=== PATIENT | male | born 1955 | race Caucasian/White ===

== ENCOUNTER 2022-05-18 19:23 | Inpatient (IN) ==
[2022-05-18] MEDS ORDERED: MIDAZOLAM HCL 1 MG/ML 2ML VIAL IV STA (20:44)
[2022-05-18] MEDS ORDERED: SODIUM CHLORIDE 0.9% 1000ML 500 ML IV ONE (20:44)
[2022-05-18] MEDS ORDERED: MECLIZINE HCL 25 MG TAB PO STA (20:44)
--- NOTE | 2022-05-18 21:07 | Emergency Department Note ---
Impression & Plan Dizziness, Nausea & vomiting, Hx of multiple sclerosis ED Provider Note INFORMANT: Patient and family ED PROVIDER(S): Elio Ventura MD CHIEF COMPLAINT: Dizziness PLAN: Disposition: Admitted Condition: Good Outpatient prescription management: none Referral: None MEDICAL DECISION MAKING: Patient presented to emergency department because of dizziness. He was very nauseated. He has history of stroke, MS and vertigo. He has had to be hospitalized in the past for vertigo. He was hydrated. He was treated with IV Versed as well as IV Zofran. He was given oral meclizine. His ECG reveals sinus bradycardia with lateral T wave inversions. I did attempt to obtain old ECGs however they were not available in our system or [facility]. The patient underwent head CT imaging and that was unremarkable. He did have a mild leukocytosis on CBC which I suspect was from his vomiting. The patient had an unremarkable chemistry panel. Patient was still very nauseated after coming back from CT scan and was given a dose of IV Zofran. On reassessment he was feeling better. While waiting for the official radiology read of his head CT the patient became nauseated again. His dizziness was still controlled with the Versed relatively well and meclizine. He was given a dose of IV Benadryl and Reglan. In light of his persistent nausea and history of difficult vertigo and other medical conditions further management in the hospital was felt to be appropriate. Patient and family were in agreement. Consultation was made with Dr. Gonzalez of the [facility] hospitalist service. Case was discussed and diagnostics were reviewed. He did evaluate the patient. He was admitted for further management. Triage Nursing notes reviewed and agree them. Vital Signs: reviewed and remarkable for hypertension Prior /Outside records reviewed: none Differential diagnosis: Benign positional vertigo, dehydration, hypovolemia, anemia, tumor, infection, hypoglycemia, electrolyte abnormalities, cardiac sources, intracerebral event, toxicologic, neurologic, as well as other pathologies. Diagnostics, as interpreted by me: ECG: Twelve-lead ECG reveals a sinus bradycardia first-degree AV block at 53 bpm. Lateral T wave inversions present. No ST elevation. No prior for comparison Cardiac Monitoring: Cardiac monitoring ordered by me: The patient was placed on continuous cardiac monitoring and observed. It revealed a normal sinus rhythm at 60 beats per minute without ectopy or evidence of dysrhythmia. Medical decision rules: none Imaging studies: Chest x-ray. Findings: A chest x-ray was performed and revealed no pneumothorax, effusion, infiltrate, pulmonary edema, free air under the diaphragm, or wide mediastinum. Impression: No acute disease. Head CT: A noncontrast CT scan of the head was performed and was negative for tumor, fracture, intracranial hemorrhage, or other acute pathology. I refer you to the EMR for further details. HPI: The patient is a 66year old male who presents to the Emergency Room with complaints of dizziness. This started around 6 PM tonight and is persisting. Patient has a history of vertigo and feels similar to prior episodes.. The patient also notes the following associated symptoms, nausea and vomiting. The patient has has found no relieving factors. Current pain is rated as mild. Patient also did note a headache. He did fall to the floor. Patient notes a history of a stroke 16 years ago which affected his left leg. Patient has a history of MS. Pt denies LOC, fevers, chills, diaphoresis, visual changes, neck pain, chest pain, breathing difficulties, abdominal pain, back pain, melena, hematochezia, urinary symptoms, numbness, weakness, lymphadenopathy, rash, or other complaints. PAST MEDICAL HISTORY: See Below, CVA, vertigo, MS PAST SURGICAL HISTORY: See Below, SOCIAL HISTORY: See Below, quit smoking HOME MEDICATIONS: See Below ALLERGIES: See Below VITALS: See Below PHYSICAL EXAMINATION: GENERAL: Awake, alert, uncomfortable-appearing, in no distress HENT: Normocephalic, atraumatic. Oropharynx unremarkable. EYES: Normal conjunctiva. Sclera non-icteric. PERRLA. EOMI. No vertical or rotatory nystagmus. NECK: Inspection normal. Non-tender. Supple. No nuchal rigidity. FROM. No masses. RESPIRATORY: Clear to auscultation. No wheezes. No rales. Normal respiratory effort. CARDIAC: Normal rate. Normal rhythm. No murmurs. No rubs. Extremities warm and well perfused. Pulses equal. No JVD. GI: Soft, non-distended. No tenderness to palpation. No rebound or guarding. No masses. RECTAL: Deferred. MUSCULOSKELETAL: Atraumatic. Chest examination reveals no tenderness. The back is symmetrical on inspection without obvious abnormality. There is no CVA tenderness to palpation. No joint edema. LOWER EXTREMITIES: Calves are equal size bilaterally and non-tender. No edema. No discoloration. NEURO: Normal sensorium. Generalized weakness noted. More weak in the left lower extremity which patient states is chronic. Patient notes chronic tingling in the hands and feet from his MS but otherwise no other sensory or motor deficits noted. SKIN: No rash or jaundice noted. Past Med/Surg History Medical History Diabetes High blood pressure Surgical History H/O knee surgery Social History Smoking Status: Former smoker Tobacco Type: Cigarettes Feels Safe at Home: Yes Allergies Allergies Allergy/AdvReac Type Severity Reaction Status Date / Time No Known Allergies Allergy Unverified 05/19/22 01:37 Home Meds Home Medications Medication Instructions Recorded Confirmed buspirone 15 mg tablet 15 mg PO BID 05/19/22 05/19/22 cyclobenzaprine 10 mg tablet 20 mg PO HS 05/19/22 05/19/22 duloxetine 60 mg capsule,delayed 60 mg PO BID 05/19/22 05/19/22 release hydroxyzine HCl 50 mg tablet 50 mg PO BID 05/19/22 05/19/22 ipratropium bromide 42 mcg (0.06 1 spray intranasal DIRECTED 05/19/22 05/19/22 %) nasal spray lisinopril 20 mg tablet 20 mg PO DAILY 05/19/22 05/19/22 metformin 500 mg tablet 500 mg PO BID 05/19/22 05/19/22 omeprazole 40 mg capsule,delayed 40 mg PO DAILY 05/19/22 05/19/22 release phenytoin sodium extended 100 mg 300 mg PO AMHS 05/19/22 05/19/22 capsule rosuvastatin 20 mg tablet 20 mg PO DAILY 05/19/22 05/19/22 Results & Data (ED) Vital Signs Vital Signs - 24 hr 05/18/22 19:40 05/18/22 21:48 05/18/22 21:51 Temperature 36.5 C Temperature Source Oral Pulse Rate 63 59 L Pulse Rate [Apical] 58 L Respiratory Rate 18 16 16 Respiratory Effort / Characteristics Spontaneous Respiratory Depth Blood Pressure 149/101 H Blood Pressure [Right Arm] 187/102 H Blood Pressure Mean 117 Blood Pressure Mean [Right Arm] 130 Pulse Oximetry 97 94 97 Oxygen Delivery Method Room Air Room Air Room Air Sepsis Recent Fever Within 48 Hours No Sepsis New/Unexplained Change in Mental Status N/A Sepsis Action Taken by Nursing No Action Required 05/18/22 23:00 05/19/22 01:00 Temperature Temperature Source Pulse Rate Pulse Rate [Apical] 64 60 Respiratory Rate 18 17 Respiratory Effort / Characteristics Non-Labored Spontaneous Non-Labored Spontaneous Respiratory Depth Normal Normal Blood Pressure Blood Pressure [Right Arm] 153/74 H 157/77 H Blood Pressure Mean Blood Pressure Mean [Right Arm] 100 103 Pulse Oximetry 98 95 Oxygen Delivery Method Room Air Room Air Sepsis Recent Fever Within 48 Hours Sepsis New/Unexplained Change in Mental Status Sepsis Action Taken by Nursing Laboratory Data Result diagrams: 05/18/22 21:00 05/18/22 21:00 Lab Results 05/18/22 05/18/22 05/18/22 Range/Units 20:58 21:00 21:00 WBC 13.96 H (4.8-10.8) K/ul RBC 5.14 (4.63-6.08) M/uL Hgb 15.4 (14.0-18.0) g/dl Hct 44.3 (40.1-51.0) % MCV 86.2 (80.0-100.0) fL MCH 30.0 (25.0-34.0) pg MCHC 34.8 (32.0-36.0) g/dL RDW Std Deviation 39.4 (36.4-46.3) fL RDW Coeff of Abraham 12.5 (11.5-14.5) % Plt Count 222 (130-400) K/uL MPV 9.4 (9.4-12.4) fL Immature Gran % (Auto) 0.4 % Neut % (Auto) 76.8 % Lymph % (Auto) 13.1 % Meriwether % (Auto) 8.2 % Eos % (Auto) 1.1 % Baso % (Auto) 0.4 % Neut # (Auto) 10.71 H (1.4-6.5) K/uL Lymph # (Auto) 1.83 (1.2-3.4) K/uL Meriwether # (Auto) 1.14 H (0.24-0.82) K/uL Eos # (Auto) 0.16 (0-0.50) K/uL Baso # (Auto) 0.06 (0-0.2) K/uL Immature Gran # (Auto) 0.06 H (0.00-0.02) K/uL Sodium 135 L (136-145) mmol/L Potassium 5.0 (3.5-5.1) mmol/L Chloride 101 (98-107) mmol/L Carbon Dioxide 25 (21-32) mmol/L Anion Gap 9 (3-11) BUN 27 H (6-23) mg/dl Creatinine 0.93 (0.6-1.4) mg/dl Est Cr Clr Drug Dosing 112.2 ml/min Est GFR ( Amer) 98.1 ml/min Est GFR (Non-Af Amer) 84.6 ml/min BUN/Creatinine Ratio 29.0 H (10-20) Glucose 162 H (70-99(Fasting)) mg/dl Calcium 9.4 (8.5-10.1) mg/dl Magnesium 1.9 (1.7-2.4) mg/dl Total Bilirubin 0.4 (0.2-1.0) mg/dl AST 19 (13-39) U/L ALT 26 (7-52) U/L Alkaline Phosphatase 71 (34-104) U/L Troponin I High Sens 4.1 (0-20) pg/ml Total Protein 8.1 (6.0-8.3) gm/dl Albumin 4.4 (3.4-5.0) gm/dl Globulin 3.7 (2.5-4.0) gm/dl Albumin/Globulin Ratio 1.2 (0.9-2) TSH (0.300-4.500) uIu/ml Urine Color Urine Appearance (Clear) Urine pH (4.5-7.5) Ur Specific Murdo (1.000-1.030) Urine Protein (Negative) Urine Glucose (UA) (Negative) Urine Ketones (Negative) Urine Blood (Negative) Urine Nitrite (Negative) Urine Bilirubin (Negative) Urine Urobilinogen (Negative) Ur Leukocyte Esterase (Negative) Urine WBC (Auto) (0-5) /hpf Urine RBC (Auto) (0-4) /hpf U Hyaline Cast (Auto) (0-5) /lpf U Epithel Cells (Auto) (0-5) /lpf Urine Bacteria (Auto) (Negative) SARS-CoV-2, RNA, NAAT NEGATIVE (NEGATIVE) 05/18/22 05/18/22 Range/Units 21:00 22:52 WBC (4.8-10.8) K/ul RBC (4.63-6.08) M/uL Hgb (14.0-18.0) g/dl Hct (40.1-51.0) % MCV (80.0-100.0) fL MCH (25.0-34.0) pg MCHC (32.0-36.0) g/dL RDW Std Deviation (36.4-46.3) fL RDW Coeff of Abraham (11.5-14.5) % Plt Count (130-400) K/uL MPV (9.4-12.4) fL Immature Gran % (Auto) % Neut % (Auto) % Lymph % (Auto) % Meriwether % (Auto) % Eos % (Auto) % Baso % (Auto) % Neut # (Auto) (1.4-6.5) K/uL Lymph # (Auto) (1.2-3.4) K/uL Meriwether # (Auto) (0.24-0.82) K/uL Eos # (Auto) (0-0.50) K/uL Baso # (Auto) (0-0.2) K/uL Immature Gran # (Auto) (0.00-0.02) K/uL Sodium (136-145) mmol/L Potassium (3.5-5.1) mmol/L Chloride (98-107) mmol/L Carbon Dioxide (21-32) mmol/L Anion Gap (3-11) BUN (6-23) mg/dl Creatinine (0.6-1.4) mg/dl Est Cr Clr Drug Dosing ml/min Est GFR ( Amer) ml/min Est GFR (Non-Af Amer) ml/min BUN/Creatinine Ratio (10-20) Glucose (70-99(Fasting)) mg/dl Calcium (8.5-10.1) mg/dl Magnesium (1.7-2.4) mg/dl Total Bilirubin (0.2-1.0) mg/dl AST (13-39) U/L ALT (7-52) U/L Alkaline Phosphatase (34-104) U/L Troponin I High Sens (0-20) pg/ml Total Protein (6.0-8.3) gm/dl Albumin (3.4-5.0) gm/dl Globulin (2.5-4.0) gm/dl Albumin/Globulin Ratio (0.9-2) TSH 1.345 (0.300-4.500) uIu/ml Urine Color Yellow Urine Appearance Clear (Clear) Urine pH 5.0 (4.5-7.5) Ur Specific Murdo 1.021 (1.000-1.030) Urine Protein 2+ H (Negative) Urine Glucose (UA) Negative (Negative) Urine Ketones Trace H (Negative) Urine Blood Negative (Negative) Urine Nitrite Negative (Negative) Urine Bilirubin Negative (Negative) Urine Urobilinogen Negative (Negative) Ur Leukocyte Esterase Negative (Negative) Urine WBC (Auto) 1-5 (0-5) /hpf Urine RBC (Auto) 0-4 (0-4) /hpf U Hyaline Cast (Auto) 0 (0-5) /lpf U Epithel Cells (Auto) 10-20 H (0-5) /lpf Urine Bacteria (Auto) Negative (Negative) SARS-CoV-2, RNA, NAAT (NEGATIVE) Administered Medications Sodium Chloride (Nss 1000ml) 1,000 mls @ 125 mls/hr IV .Q8H KEN Stop: 06/17/22 20:44 Last Admin: 05/18/22 22:37 Dose: 125 mls/hr Documented By: JOSE MANUEL Discontinued Medications Diphenhydramine HCl (Diphenhydramine 50 Mg/Ml Vial) 12.5 mg IV NOW STA Stop: 05/19/22 00:38 Last Admin: 05/19/22 00:45 Dose: 12.5 mg Documented By: ANNETTE Sodium Chloride (Nss 1000ml) 500 mls @ 999 mls/hr IV .Q31M ONE Stop: 05/18/22 21:14 Last Infusion: 05/18/22 22:00 Dose: 0 mls/hr Documented By: JOSE MANUEL Admin: 05/18/22 20:56 Dose: 999 mls/hr Documented By: KANDI Meclizine HCl (Meclizine Hcl 25 Mg Tab) 25 mg PO NOW STA Stop: 05/18/22 20:45 Last Admin: 05/18/22 20:56 Dose: 25 mg Documented By: KANDI Metoclopramide HCl (Metoclopramide Hcl Inj 5 Mg/Ml 2 Ml Vial) 5 mg IV ONE ONE Stop: 05/19/22 00:38 Last Admin: 05/19/22 00:46 Dose: 5 mg Documented By: ANNETTE Midazolam HCl (Midazolam Hcl 1 Mg/Ml 2ml Vial) 1 mg IV NOW STA Stop: 05/18/22 20:45 Last Admin: 05/18/22 20:56 Dose: 1 mg Documented By: KANDI Ondansetron HCl (Ondansetron Inj 2 Mg/Ml 2 Ml Vial) 4 mg IV NOW STA Stop: 05/18/22 22:26 Last Admin: 05/18/22 22:34 Dose: 4 mg Documented By: JOSE MANUEL Ondansetron HCl (Ondansetron Inj 2 Mg/Ml 2 Ml Vial) 4 mg IV NOW STA Stop: 05/19/22 02:23 Last Admin: 05/19/22 02:31 Dose: 4 mg Documented By: ANNETTE Discharge Plan Visit Data Chief Complaint: Vertigo ED Provider: Elio Ventura Discharge Problem: Dizziness, Nausea & vomiting, Hx of multiple sclerosis Forms Stand Alone Forms: My [facility] Prescriptions Prescriptions: No Action cyclobenzaprine 10 mg tablet 20 mg PO HS metformin 500 mg tablet 500 mg PO BID lisinopril 20 mg tablet 20 mg PO DAILY hydroxyzine HCl 50 mg tablet 50 mg PO BID phenytoin sodium extended 100 mg capsule 300 mg PO AMHS omeprazole 40 mg capsule,delayed release(DR/EC) 40 mg PO DAILY ipratropium bromide 42 mcg (0.06 %) spray,non-aerosol 1 spray intranasal DIRECTED buspirone 15 mg tablet 15 mg PO BID rosuvastatin 20 mg tablet 20 mg PO DAILY duloxetine 60 mg capsule,delayed release(DR/EC) 60 mg PO BID Referrals Referrals: West Darden, [Primary Care Provider] -
[2022-05-18 21:33] LABS: Albumin Globulin Ratio 1.2 (0.9-2); Albumin Level 4.4 gm/dl (3.4-5.0); Bilirubin,Total 0.4 mg/dl (0.2-1.0); Calcium 9.4 mg/dl (8.5-10.1); Creatinine Clr Calc Pharmacy 112.2 ml/min; Est GFR (African American) 98.1 ml/min; Est GFR (Non-African American) 84.6 ml/min; Globulin 3.7 gm/dl (2.5-4.0); Magnesium 1.9 mg/dl (1.7-2.4); Total Protein 8.1 gm/dl (6.0-8.3)
[2022-05-18 21:38] LABS: Troponin I High Sensitivity 4.1 pg/ml (0-20)
[2022-05-18 21:41] LABS: Basophils # (auto) 0.06 K/uL (0-0.2); Basophils % (auto) 0.4 %; Eosinophils # (auto) 0.16 K/uL (0-0.50); Eosinophils % (auto) 1.1 %; Hematocrit (blood only) 44.3 % (40.1-51.0); Hemoglobin 15.4 g/dl (14.0-18.0); Immature Granulocytes # (auto) 0.06 K/uL (0.00-0.02); Immature Granulocytes % (auto) 0.4 %; Lymphocytes # (auto) 1.83 K/uL (1.2-3.4); Lymphocytes % (auto) 13.1 %; Mean Corpuscular Hgb Conc 34.8 g/dL (32.0-36.0); Mean Corpuscular Volume 86.2 fL (80.0-100.0); Mean Platelet Volume 9.4 fL (9.4-12.4); Monocytes # (auto) 1.14 K/uL (0.24-0.82); Monocytes % (auto) 8.2 %; Neutrophils # (auto) 10.71 K/uL (1.4-6.5); Neutrophils % (auto) 76.8 %; Platelet Count 222 K/uL (130-400); RDW Coefficient of Variation 12.5 % (11.5-14.5); RDW Standard Deviation 39.4 fL (36.4-46.3); Red Blood Count 5.14 M/uL (4.63-6.08); White Blood Count 13.96 K/ul (4.8-10.8)
[2022-05-18] MEDS ORDERED: ONDANSETRON INJ 2 MG/ML 2 ML VIAL IV STA (22:25)
[2022-05-18] MEDS: SODIUM CHLORIDE 0.9% 1000ML 1,000 ML IV SCH (22:37)
[2022-05-18 23:21] LABS: Appearance Urine Clear (Clear); Bacteria Urine Automated Negative (Negative); Bilirubin Urine Negative (Negative); Blood Urine Negative (Negative); Cast Urine Automated 0 /lpf (0-5); Color Urine Yellow; Glucose Urine UA Negative (Negative); Ketones Urine Trace (Negative); Leukocyte Esterase Urine Negative (Negative); Nitrite Urine Negative (Negative); Protein Urine 2+ (Negative); RBC Urine Automated 0-4 /hpf (0-4); Specific Gravity Urine 1.021 (1.000-1.030); Urobilinogen Urine Negative (Negative)
[2022-05-19] MEDS ORDERED: METOCLOPRAMIDE HCL INJ 5 MG/ML 2 ML VIAL IV ONE (00:37)
[2022-05-19] MEDS ORDERED: diphenhydrAMINE 50 MG/ML VIAL IV STA (00:37)
[2022-05-19] MEDS ORDERED: ONDANSETRON INJ 2 MG/ML 2 ML VIAL IV STA ×2 (02:22→11:10)
[2022-05-19] MEDS ORDERED: GLUCOSE 10 TAB/TUBE PO PRN (03:45)
[2022-05-19] MEDS ORDERED: DEXTROSE 50% 50 ML SYRINGE IV PRN (03:45)
[2022-05-19] MEDS ORDERED: POLYETHYLENE (MIRALAX) 17 GM PACK PO PRN (03:45)
[2022-05-19] MEDS ORDERED: GLUCOSE 40% GEL 15 GM TUBE PO PRN (03:45)
[2022-05-19] MEDS ORDERED: MAGNESIUM HYDROXIDE SUSP 30 ML UDC PO PRN (03:45)
[2022-05-19] MEDS ORDERED: GLUCAGON FOR INJ 1 MG VIAL SQ PRN (03:45)
[2022-05-19] MEDS ORDERED: CARBOHYDRATES FOR HYPOGLYCEMIA PO PRN (03:45)
[2022-05-19] MEDS ORDERED: ALUMINUM/MAGNESIUM SUSP 30 ML UDC PO PRN (03:45)
--- NOTE | 2022-05-19 03:58 | History & Physical Report ---
Date of Service May 19, 2022 Assessment & Plan (1) Nausea & vomiting: (2) Vertigo: Plan Vertigo Patient presents with vertigo started the evening prior to arrival, associated with N,V,sweting. Patient has history of vertigo and hospitalization in the past, patient has notable PMH of MS and a stroke and vertigo. Patient received diphenhydramine, meclizine, metoclopramide, Versed, IV fluid, and Zofran in the ED At my bedside exam, patient was already feeling better. Admitting CT head with no acute finding, follow final read. Will continue with meclizine, diphenhydramine, Zofran, IV fluid hydration Leukocytosis: Likely secondary to dehydration from vomiting/profuse sweating. Patient afebrile. Follow labs in AM. UA not suggestive of UTI. CXR appears with no acute finding, follow final reads. Other chronic medical conditions: resume home meds as appropriate. Sliding scale insulin. Enoxaparin sc DNR/DNI History of Present Illness Chief Complaint: Vertigo Primary Care Provider: West Darden DO 66-year-old man with PMH of T2DM, HLD, diabetic peripheral angiopathy, COPD, HTN, obesity class III, GERD, BPH, multiple sclerosis CAMI, recurrent major depressive disorder, history of CVA presented to the ED 1/2 with complaint of vertigo associated with nausea and sweating. Patient reports sudden onset vertigo last evening (on the day of arrival to ED) around 5:30 PM while trying to undo his shoes, felt nauseous and profuse sweating, vomiting and weak. Patient reports he has been hospitalized with vertigo 2 times in the past, June and November 2019. Patient reports "everything spinning" including the room and himself when he has vertigo. He has notable past medical history of stroke, MS and vertigo. Patient was treated with IV Versed, IV Zofran and p.o. meclizine, patient with some relief of vertigo and then a plan was to discharge him from ED but again his vertigo started to come back and hence decision was made to admit the patient under observation and treat his vertigo. Patient denies any fever/headache/cough. Patient reports good appetite. Glenn cleary denies any acute changes in his bowel or bladder habit. Patient denies any chest pain/palpitations/belly pain. Patient denies any numbness. Patient quit smoking 2006, drinks 1-2 beers a day generally but his last drink this time is last Wednesday. Denies any recreational drug use. DNR/DNI as per my discussion with the patient. 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 Medications reviewed with the patient. Plan of care discussed with the patient. Allergies Allergy/AdvReac Type Severity Reaction Status Date / Time No Known Allergies Allergy Unverified 05/19/22 01:37 Home Medications Medication Instructions Recorded Confirmed Type buspirone 15 mg tablet 15 mg PO BID 05/19/22 05/19/22 History cyclobenzaprine 10 mg tablet 20 mg PO HS 05/19/22 05/19/22 History duloxetine 60 mg capsule,delayed 60 mg PO BID 05/19/22 05/19/22 History release hydroxyzine HCl 50 mg tablet 50 mg PO BID 05/19/22 05/19/22 History ipratropium bromide 42 mcg (0.06 1 spray intranasal DIRECTED 05/19/22 05/19/22 History %) nasal spray lisinopril 20 mg tablet 20 mg PO DAILY 05/19/22 05/19/22 History metformin 500 mg tablet 500 mg PO BID 05/19/22 05/19/22 History omeprazole 40 mg capsule,delayed 40 mg PO DAILY 05/19/22 05/19/22 History release phenytoin sodium extended 100 mg 300 mg PO AMHS 05/19/22 05/19/22 History capsule rosuvastatin 20 mg tablet 20 mg PO DAILY 05/19/22 05/19/22 History Past Med/Surg History Medical History Diabetes High blood pressure Surgical History H/O knee surgery Social History Smoking Status: Former smoker Tobacco Type: Cigarettes Feels Safe at Home: Yes Review of Systems Review of Systems: Negative otherwise mentioned in HPI. Physical Exam Physical Exam: GENERAL: Alert and oriented x3. NAD, on RA. Mild distress, lying semiupright w/ eyes closed. Obese Class III. HEENT: No pallor, no icterus. Pupils equal, round and reactive to light. Oral mucosa moist. NECK: No JVD, no neck masses. HEART: S1 and S2 heard. Regular rate and rhythm. No murmur, no gallop. RESPIRATORY SYSTEM: Normal AP diameter. No accessory muscle use. No wheezing, no crackles. ABDOMEN: Soft, bowel sounds present, nontender, no distention. CENTRAL NERVOUS SYSTEM: No facial droop. Speech is clear. Obeys simple commands. Moves extremities. EXTREMITIES: No edema, no erythema seen. Results & Data Results & Data ([facility]) Vital Signs (Past 12 Hours) Vital Signs Temp Pulse Pulse Resp BP BP Pulse Ox 05/19/22 03:00 57 L 16 155/72 H 92 05/19/22 01:00 60 17 157/77 H 95 05/18/22 23:00 64 18 153/74 H 98 05/18/22 21:51 59 L 16 97 05/18/22 21:48 58 L 16 187/102 H 94 05/18/22 19:40 36.5 C 63 18 149/101 H 97 O2 Del Method 05/19/22 03:00 Room Air 05/19/22 01:00 Room Air 05/18/22 23:00 Room Air 05/18/22 21:51 Room Air 05/18/22 21:48 Room Air 05/18/22 19:40 Room Air Code Status & VTE Plan VTE Prophylaxis Plan VTE Prophylaxis will be ordered: Yes
[2022-05-19] MEDS: SODIUM CHLORIDE 0.9% 1000ML 1,000 ML IV SCH ×2 (05:50→14:46)
[2022-05-19] MEDS: ONDANSETRON INJ 2 MG/ML 2 ML VIAL IV PRN ×2 (06:01→17:43)
--- NOTE | 2022-05-19 06:44 | Communication Note ---
Date of Service: May 19, 2022 Pt was code purple around 6 am after he passed out while sitting on the pot in the restroom infront of RN, he didn't fall or hit any parts of the body. He was sweating profusely right after he passed out per RN. He was safely brought to the bed before we were able to see/evaluate him. Around 2-3 minutes here. He is DNR/DNI, he had clearly stated this during admission to [facility]. He was put on 6L OM O2. Fingerstick was 205. On exam, he was lying unconscious, not opening eyes to painful stimuli, with slow breathing, HR in 60s and BP 184/88 mmHg. He was maintaining saturation above 90%. Stat labs drawn, stat EKG and stat CT head/CXR ordered. Pt vomitted/stayed unconcious (opens eyes/mumble to painful stimuli) in around another 3-5 minutes and remains very drowsy/minimally responsive to stimuli, BP improved to 171/78, HR in 60s. Maintaining saturation in 6 L OM O2. Given syncope and vertigo , will consult neuro. Cardio consult for possible cardiac syncope. ?? vasovagal. EKG stat. ECHO, and troponin, lactic acid. Unasyn for risk of aspiration. Christopher. Will relay to am provider to follow up on the labs and imaging. Transfer to PCU. Total of 45 minutes of critical care time spent in taking care of this patient during code purple. Pt's brother Gonzalo was given a phone call for update -- went to voice mail, left message to call us back at the hospital and ask for Milton's doctor for update. Signed out to AM provider.
[2022-05-19 06:58] LABS: Hematocrit (blood only) 44.3 % (40.1-51.0); Hemoglobin 15.2 g/dl (14.0-18.0); Mean Corpuscular Hemoglobin 29.8 pg (25.0-34.0); Mean Corpuscular Hgb Conc 34.3 g/dL (32.0-36.0); Mean Corpuscular Volume 86.9 fL (80.0-100.0); Platelet Count 183 K/uL (130-400); RDW Coefficient of Variation 12.6 % (11.5-14.5); RDW Standard Deviation 39.8 fL (36.4-46.3); White Blood Count 11.06 K/ul (4.8-10.8)
--- NOTE | 2022-05-19 07:09 | XRay Report ---
XR chest 1V portable CLINICAL HISTORY: loc TECHNIQUE: Single frontal radiograph of the chest was obtained. Comparison: Comparison is made to chest radiograph 05/18/2022 FINDINGS: Enteric tube terminates below the diaphragm. The cardiomediastinal silhouette is normal. The lungs ar e clear. No evidence of pleural effusion or pneumothorax. IMPRESSION: No acute chest disease. ACT 112: Negative or not required by law. Electronically signed by: Fernando Dave M.D. 05/19/2022 7:07 AM
[2022-05-19 07:19] LABS: BUN Creatinine Ratio 25.9 (10-20); Calcium 9.1 mg/dl (8.5-10.1); Creatinine Clr Calc Pharmacy 126.1 ml/min; Est GFR (African American) 106.6 ml/min; Magnesium 1.9 mg/dl (1.7-2.4); Phosphorus 3.7 mg/dl (2.5-4.9); Potassium 4.8 mmol/L (3.5-5.1)
[2022-05-19] MEDS: AMPICILLIN/SULBACTAM SOD 3,000 MG in 0.9 % SODIUM CHLORIDE 100 ML IV SCH ×3 (07:43→18:33)
[2022-05-19] MEDS ORDERED: METOCLOPRAMIDE HCL INJ 5 MG/ML 2 ML VIAL IV STA (07:44)
--- NOTE | 2022-05-19 07:44 | CT Scan Report ---
CT head/brain wo con CLINICAL HISTORY: LOC Technique: Contiguous axial CT images of the head were acquired from the base of the skull to the desi kathleen without intravenous contrast administration. Images were viewed in brain, subdural and bone [facility]. Automated dose lowering techniques and/or adjustment according to patient size were utilized for this exam. Comparison: Comparison is made to CT head 05/18/2022 Findings: The ventricles, basal cisterns, and cerebral sulci are normal. There is no acute intracranial hemorrh age or evidence of acute territorial infarction. Neither mass effect, shift of the midline structures , nor abnormal extra-axial fluid collections are shown. Imaged portions of the paranasal sinuses and mastoid air cells are clear. The orbits appear normal. There are no acute fractures of the calvaria or scalp swelling. Impression: No acute intracranial hemorrhage, no evidence of acute territorial infarction or other acute intracra nial disease process. ACT 112: Negative or not required by law. Electronically signed by: Fernando Dave M.D. 05/19/2022 7:43 AM
--- NOTE | 2022-05-19 07:46 | CT Scan Report ---
CT head/brain wo con CLINICAL HISTORY: dizziness, fall Technique: Contiguous axial CT images of the head were acquired from the base of the skull to the desi kathleen without intravenous contrast administration. Images were viewed in brain, subdural and bone [facility]. Automated dose lowering techniques and/or adjustment according to patient size were utilized for this exam. Comparison: None available at the time of this dictation. Findings: The ventricles, basal cisterns, and cerebral sulci are normal. There is no acute intracranial hemorrh age or evidence of acute territorial infarction. Neither mass effect, shift of the midline structures , nor abnormal extra-axial fluid collections are shown. Imaged portions of the paranasal sinuses and mastoid air cells are clear. The orbits appear normal. There are no acute fractures of the calvaria or scalp swelling. Impression: No acute intracranial hemorrhage, no evidence of acute territorial infarction or other acute intracra nial disease process. ACT 112: Negative or not required by law. Electronically signed by: Fernando Dave M.D. 05/19/2022 7:45 AM
--- NOTE | 2022-05-19 07:53 | XRay Report ---
XR chest 1V portable HISTORY: 66 years-old Male weakness acute weakness COMPARISON: Chest radiograph May 19, 2022 TECHNIQUE: AP view of the chest FINDINGS: Cardiac silhouette is enlarged. Subsegmental bibasilar densities. No pneumothorax, large pleural effu lou or overt pulmonary edema. Bones appear grossly intact. Healed chronic right mid clavicular fract ure deformity. IMPRESSION: 1. Cardiomegaly without pulmonary edema. 2. Mild bibasilar densities suggest atelectasis. ACT 112: Negative or not required by law. The above report was generated using voice recognition software. It may contain grammatical, syntax o r spelling errors. Electronically signed by: Siddharth Aguayo M.D. 05/19/2022 7:51 AM
--- NOTE | 2022-05-19 09:18 | Neurology Consultation ---
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 He is stable from this. He is on no a ntiplatelet medication. He had carried a diagnosis of multiple sclerosis but has recently seen an MS specialist (Dr. Sullivan In December of this year) who doubts the diagnosis. He is on no MS disease modifying therapy. 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 He does have peripheral neuropathy on exam likely secondary to diabetes. He has a history of hypertension and this was elevated on admission. The patient has severe vertigo and it is likely inner ear in origin (with the tinnitus on the right and hearing loss on the right this could be consistent with a severe acute Menieres syndrome). He has no other focal neurologic findings. Recommendations: 1. I think it would be reasonable, if we can obtain it, to get an MRI of the brain with without contrast. 2. Consider CT angiography of the head and neck as well. 3. use meclizine for dizziness or if this does not help low-dose Valium ( 2-5 milligrams every 6-8 hours) as needed 4. ondansetron for nausea. 5. I will follow. Overall, I spent a total of 60 minutes with this case including review of records, direct evaluation the patient at bedside, and discussing the case with the patient and RN at bedside and Dr. lyon, including differential diagnosis and treatment options. History of Present Illness Reason for Consultation: patient is a 66-year-old why I was asked to see at the request of Dr. Carlos Fountain for neurologic consultation regarding acute vertigo Requesting Physician: Dr. Gonzalez Attending Physician: Genie Lyon MD History of Present Illness This patient has a history of multiple sclerosis, followed by Dr. Sullivan and currently is on Dilantin for cramping. he is currently on no disease modifying therapy. In addition, the patient had a pontine stroke 16 years ago in [facility] resulting in some chronic left lower extremity weakness. He is on no antiplatelet medication at this time. He last saw Dr. Sullivan in December of 2021. he was transferring care from [facility] to [facility] at that time. The diagnosis of MS is suspect and he has never been on a disease modifying therapy. Her neurologic examination showed very mild rotary nystagmus particularly far end gaze to the left and there are no saccades. her final impression was prior brainstem stroke with left-sided weakness and muscle cramps. He has had EMG ease and nerve conduction studies was well as muscle biopsies in the past. He has had lumbosacral radiculopathy and peripheral neuropathy. He has cramping syndrome helped with Dilantin. She was never convinced that he had MS. The patient has some sort of unclear history of Vertigo. He has a history of diabetes, hypertension, and depression. Apparently the patient had the relatively sudden onset of dizziness, nausea, and vomiting around 1800, on May 18. He arrived to the emergency room at 19:40 with a temperature 36.5, pulse 63 and regular, respiratory rate 18, blood pressure 149/101, and O2 saturation 97 percent. There was some weakness in general in some vertigo particularly with movement. He had left leg weakness which is old and tingling in his hands and feet which were old. He was admitted. White count was 13.9 and Chem profile was noted for a BUN of 27 and glucose of 162. TSH and urinalysis were unremarkable. He was given fluids and medication for his vertigo. He was doing well until about 6 in the morning when he went up to sit on the commode had sudden onset of acute vertigo and a syncopal episode. The nurse was there he did not hurt himself. He was groggy and confused after several minutes and since has had significant vertigo. He also complains of ringing in his right ear and hearing loss in his right ear. He has not pulled to 1 side. His neck is a little bit stiff. He has an occipital headache. Allergies Allergy/AdvReac Type Severity Reaction Status Date / Time No Known Allergies Allergy Unverified 05/19/22 01:37 Home Medications Medication Instructions Recorded Confirmed Type buspirone 15 mg tablet 15 mg PO BID 05/19/22 05/19/22 History cyclobenzaprine 10 mg tablet 20 mg PO HS 05/19/22 05/19/22 History duloxetine 60 mg capsule,delayed 60 mg PO BID 05/19/22 05/19/22 History release hydroxyzine HCl 50 mg tablet 50 mg PO BID 05/19/22 05/19/22 History ipratropium bromide 42 mcg (0.06 1 spray intranasal DIRECTED 05/19/22 05/19/22 History %) nasal spray lisinopril 20 mg tablet 20 mg PO DAILY 05/19/22 05/19/22 History metformin 500 mg tablet 500 mg PO BID 05/19/22 05/19/22 History omeprazole 40 mg capsule,delayed 40 mg PO DAILY 05/19/22 05/19/22 History release phenytoin sodium extended 100 mg 300 mg PO AMHS 05/19/22 05/19/22 History capsule rosuvastatin 20 mg tablet 20 mg PO DAILY 05/19/22 05/19/22 History Patient History Medical History Diabetes High blood pressure Surgical History H/O knee surgery Social History Smoking Status: Former smoker Tobacco Type: Cigarettes Second Hand Exposure: No; Do You Dip or Chew Tobacco: No; Tobacco Cessation Education Requested by Patient: No Hx Alcohol Use: Yes Alcohol type: beer Hx Substance Use: No Preferred Language: Kinyarwanda Communication Ability: Effective Ebd Teacher Required: No Beliefs That Will Affect Care: None Current Living Situation: Alone Other Information That Helps Us Care for You: No Feels Safe at Home: Yes Safety Concerns: Feels Safe At This Time Assistive Devices: Hospital Bed Review of Systems Constitutional: + fatigue and + weakness; no fever Eyes: + diplopia and + worsening vision; no eye pain Ear, Nose, Mouth, Throat: + tinnitus, + hearing loss and + dizziness; no ear pain, no snoring, no hoarseness and no dysphagia Respiratory: no cough and no dyspnea Cardiovascular: no chest pain, no palpitations and no lightheadedness Gastrointestinal: no abdominal pain, no nausea and no vomiting Musculoskeletal: no back pain, no neck pain, no radicular pain, no joint pain and no myalgia Integumentary: no rash and no lesions Neurologic: + dizziness and + headache(s); no gait abnormality, no localized weakness, no generalized weakness, no tingling, no numbness, no tremor(s), no abnormal movements, no abnormal speech, no confusion and no memory loss Psychiatric: no depression, no irritability, no anxiety, no difficulty concentrating, no confusion and no hallucinations Endocrine: no fatigue and no flushing Hematologic / Lymphatic: no easy bleeding and no easy bruising Allergy / Immunological: no urticaria and no problem reported Exam (Neuro) Physical Exam: The patient is right-handed. The patient is awake, alert, and attentive But will not open his eyes because of vertigo. Speech is sparse But without any obvious aphasia or dysarthria. The patient can name objects, repeat phrases, and has normal spontaneous speech. Mentation and thought processes are intact, with orientation to person, place and time, and normal fund of knowledge. Attention and concentration are normal. Mood and affect are normal and appropriate. General appearance and grooming are normal. Short and long-term memory are reasonable to conversation Pupils are 3 mm bilaterally and reactive to light. Extraocular eye muscles are intact without nystagmus. Visual acuity and visual sanots seem normal grossly to confrontation. There are no deficits to sensation in the face in all 3 distributions of the fifth cranial nerve bilaterally. Corneal reflexes are positive bilaterally. Facial strength and symmetry was normal bilaterally. Hearing seems normal bilaterally. Palate moves well without asymmetry. There is normal sternocleidomastoid and trapezius (shoulder shrug) strength bilaterally. Tongue is midline with good strength bilaterally. Neck has a full range of motion without discomfort. There are no cervical bruits bilaterally. There are no cranial or ocular bruits. Heart is without murmur. There is a regular rhythm and rate. Cervical, thoracic, and lumbar spine are nontender to palpation. Gait is not tested but stance sitting up in bed is reasonable. With outstretched arms there is no drift. There are no resting, postural, or action tremors. There is no ataxia with finger to nose testing. There is good facility in the hands. No other abnormal involuntary movements are noted. Motor strength is 5/5 diffusely in the arms bilaterally including deltoids, biceps, triceps, brachioradialis, wrist flexors and extensors, associate accountant, and intrinsic hand muscles. Motor strength is 5/5 diffusely in the legs bilaterally including hip flexors, quadriceps, hamstrings, gastrocnemius, tibialis anterior, tibialis posterior, and Peroneii muscles. Toe extensors are normal and there is good bulk in the extensor digitorum brevis muscles bilaterally. The limbs have good tone without rigidity or spasticity. There is no atrophy noted in the muscles. Muscle bulk is normal, there is no tenderness to palpat ion, no myotonia to percussion, and no fasciculations seen. Sensory examination is intact to touch and pin throughout all 4 limbs diffusely. Reflexes are 0/4 in the biceps, triceps, brachioradialis, quadriceps, and Achilles tendons bilaterally. There is no clonus bilaterally. Toes are downgoing with plantar stimulation bilaterally. Peripheral pulses are present and of normal quality distally in all 4 limbs. There is no peripheral edema noted in the limbs. Results & Data ([facility]) Vital Signs (Past 12 Hours) Vital Signs Temp Pulse Pulse Pulse Resp BP Pulse Ox 05/19/22 06:49 36.1 C L 67 204/95 H 94 05/19/22 04:40 36.5 C 58 L 14 163/86 H 99 05/19/22 05:02 36.5 C 58 L 14 163/86 H 99 05/19/22 05:02 05/19/22 05:00 36.5 C 58 L 14 163/86 H 99 05/19/22 04:57 05/19/22 03:00 57 L 16 155/72 H 92 05/19/22 04:00 60 18 160/79 H 96 05/19/22 01:00 60 17 157/77 H 95 05/18/22 23:00 64 18 153/74 H 98 05/18/22 21:51 59 L 16 97 05/18/22 21:48 58 L 16 187/102 H 94 Pulse Ox O2 Del Method O2 Del Method O2 Flow Rate 05/19/22 06:49 Oxymask 8 05/19/22 04:40 Room Air 05/19/22 05:02 Room Air 05/19/22 05:02 99 Room Air 05/19/22 05:00 Room Air 05/19/22 04:57 Room Air 05/19/22 03:00 Room Air 05/19/22 04:00 Room Air 05/19/22 01:00 Room Air 05/18/22 23:00 Room Air 05/18/22 21:51 Room Air 05/18/22 21:48 Room Air PG Care Time/CCT Total # of Minutes Spent Total Time Spent with Patient: Total time spent is greater than 50% in coordination of care (as documented) at patient's floor/unit and/or counseling patient: Coding Level of Care Code 15173 Initial Inpt Care Lvl 3 Diagnoses Vertigo R42 Nausea & vomiting R11.2 Hx of multiple sclerosis G35 Time Spent (min) 60
[2022-05-19] MEDS: INSULIN ASPART PER UNIT SC SCH ×4 (10:15→20:45)
--- NOTE | 2022-05-19 10:16 | Cardiology Consultation ---
Date of Consultation May 19, 2022 Assessment & Plan (1) Vertigo: (2) Dizziness: (3) Nausea & vomiting: (4) Vasovagal episode: Plan 66-year-old male admitted with severe vertigo. Cardiology consultation requested after an episode of altered consciousness observed - as described below; suspect vasovagal attack. RECOMMENDATIONS/PLAN: Maintain telemetry Avoid AV raj rodo therapy at this time Add amlodipine for additional blood pressure control Continue lisinopril ? Ongoing need for NG tube? Supervising Physician Co-Signing Physician Notes 66-year-old male seen and examined at the bedside. Admitted with vertigo, nausea, and vomiting. Suffered a syncopal episode last night while using the commode. Patient does not recall events. Telemetry reveals sinus rhythm. Patient continues to vomit with persistent nausea. Vertigo persisting since admission. Denies chest pain or shortness of breath. Negative high-sensitivity troponin. No significant ST changes on ECG. PE: Hypertensive otherwise stable vital signs. General: Uncomfortable, retching. Heart: Regular rhythm, normal S1-S2. No murmur. Lungs: Clear bilateral, no rales, rhonchi, wheeze. Abdomen: Mildly distended, nontender, soft. No rebound or guarding. Extremities: No edema. A/P: Agree with above PA-C history, physical exam, assessment and plan. Syncopal episode likely related to vasovagal pathophysiology in the setting of ongoing nausea, vomiting, and vertigo. Echocardiogram demonstrates preserved LV systolic function without significant valvular pathology. No evidence of acute coronary syndrome. Recommend continue telemetry monitoring. Maintain adequate hydration. Initiate antihypertensive therapy as noted above. History of Present Illness Reason for Consultation: Loss of consciousness Requesting Physician: Carlos Attending Physician: Hans History of Present Illness Mr. Milton Santana is a 66 year old male who presented to the [facility] ER on 05/18/2022 with dizziness associated with nausea, vomiting, diaphoresis, and weakness. Patient has a history of vertigo, possible multiple sclerosis, and prior CVA. CT head was unremarkable. Patient received hydration, IV Versed, IV Zofran, and oral meclizine initially in the ER with improvement. Recurrent/ongoing nausea lead to administration of IV Benadryl and Reglan as well as admission to a non-telemetry monitored bed. Around 6 AM a Code Purple was called as the patient was observed by the nurse to have loss of consciousness while using the restroom. He was profusely diaphoretic. + Emesis. Heart rate was in the 60's. BP was 184/88. SPO2 greater than 90%. Blood glucose of 205. An NG tube was placed along with a Leon catheter. EKG revealed sinus bradycardia 55 bpm with a first-degree AV block and lateral T wave flattening similar to prior tracing. High-sensitivity troponin I negative x2 at 4.1 pg/Ml and 5.3 pg/ml. Resting echocardiography revealed preserved LV systolic function normal wall motion, ejection fraction 60 to 65%. Chest x-ray on admission was read by the radiologist as revealing cardiomegaly without pulmonary edema, with mild bibasilar densities suggesting atelectasis. Chest x-ray this morning showed no acute chest disease. CT of the head x2 showed no acute intracranial hemorrhage, acute territorial infarction, or other acute intracranial disease process. Patient denies history of cardiac disease. He denies chest pain, tachypalpitations, or shortness of breath. No peripheral edema. No history of syncope. Allergies Allergy/AdvReac Type Severity Reaction Status Date / Time No Known Allergies Allergy Unverified 05/19/22 01:37 Home Medications Medication Instructions Recorded Confirmed Type buspirone 15 mg tablet 15 mg PO BID 05/19/22 05/19/22 History cyclobenzaprine 10 mg tablet 20 mg PO HS 05/19/22 05/19/22 History duloxetine 60 mg capsule,delayed 60 mg PO BID 05/19/22 05/19/22 History release hydroxyzine HCl 50 mg tablet 50 mg PO BID 05/19/22 05/19/22 History ipratropium bromide 42 mcg (0.06 1 spray intranasal DIRECTED 05/19/22 05/19/22 History %) nasal spray lisinopril 20 mg tablet 20 mg PO DAILY 05/19/22 05/19/22 History metformin 500 mg tablet 500 mg PO BID 05/19/22 05/19/22 History omeprazole 40 mg capsule,delayed 40 mg PO DAILY 05/19/22 05/19/22 History release phenytoin sodium extended 100 mg 300 mg PO AMHS 05/19/22 05/19/22 History capsule rosuvastatin 20 mg tablet 20 mg PO DAILY 05/19/22 05/19/22 History Patient History Medical History Diabetes High blood pressure Surgical History H/O knee surgery Social History Smoking Status: Former smoker Tobacco Type: Cigarettes Second Hand Exposure: No; Do You Dip or Chew Tobacco: No; Tobacco Cessation Education Requested by Patient: No Hx Alcohol Use: Yes Alcohol type: beer Hx Substance Use: No Preferred Language: Estonian Communication Ability: Effective Electric Motor Repairman Required: No Beliefs That Will Affect Care: None Current Living Situation: Alone Other Information That Helps Us Care for You: No Feels Safe at Home: Yes Safety Concerns: Feels Safe At This Time Assistive Devices: Hospital Bed Review of Systems Review of Systems: Only a Limited Review of Systems was able to be obtained due to the patient's status, retching throughout the entire consultation Constitutional: Nausea. No fevers. HEENT: Glaucoma. No amaurosis fugax. Pulmonary: MICHEL. COPD Cardiac: See above. GI/Abd: See above. Vascular: No history of AAA. Hematologic: No coagulation disorder. Musculoskeletal: Arthritis. Skin: No rash. Neurologic: History of CVA. MS. Vertigo. Endocrine: DM. Complete Review of Systems is as stated above, negative, or noncontributory. Physical Exam Physical Exam: General: Alert to person, place and time. Mild distress, retching. + NG tube. HENT: Normocephalic. Atraumatic. Eyes: PER. Conjunctiva pink, sclera clear. Neck: No carotid bruits. No overt JVD. Heart: RRR, 76 bpm. No murmur. Lungs: Clear anteriorly. Abdomen: +BS. Extremities: No clubbing, cyanosis, or significant edema. Limited neurological examination is without focal deficits. Pulses: radial=2/4, posterior tibial=1/4. Results & Data ([facility]) Vital Signs (Past 12 Hours) Vital Signs Temp Pulse Pulse Resp BP Pulse Ox Pulse Ox 05/19/22 06:49 36.1 C L 67 204/95 H 94 05/19/22 04:40 36.5 C 58 L 14 163/86 H 99 05/19/22 05:02 36.5 C 58 L 14 163/86 H 99 05/19/22 05:02 99 05/19/22 05:00 36.5 C 58 L 14 163/86 H 99 05/19/22 04:57 05/19/22 03:00 57 L 16 155/72 H 92 05/19/22 04:00 60 18 160/79 H 96 05/19/22 01:00 60 17 157/77 H 95 05/18/22 23:00 64 18 153/74 H 98 O2 Del Method O2 Del Method O2 Flow Rate 05/19/22 06:49 Oxymask 8 05/19/22 04:40 Room Air 05/19/22 05:02 Room Air 05/19/22 05:02 Room Air 05/19/22 05:00 Room Air 05/19/22 04:57 Room Air 05/19/22 03:00 Room Air 05/19/22 04:00 Room Air 05/19/22 01:00 Room Air 05/18/22 23:00 Room Air Laboratory Results Cardiac Enzymes 05/18/22 05/19/22 Range/Units 21:00 06:40 AST 19 (13-39) U/L Troponin I High Sens 4.1 5.3 (0-20) pg/ml CBC 05/18/22 05/19/22 Range/Units 21:00 06:40 WBC 13.96 H 11.06 H (4.8-10.8) K/ul RBC 5.14 5.10 (4.63-6.08) M/uL Hgb 15.4 15.2 (14.0-18.0) g/dl Hct 44.3 44.3 (40.1-51.0) % Plt Count 222 183 (130-400) K/uL Neut # (Auto) 10.71 H (1.4-6.5) K/uL Lymph # (Auto) 1.83 (1.2-3.4) K/uL Hardy # (Auto) 1.14 H (0.24-0.82) K/uL Eos # (Auto) 0.16 (0-0.50) K/uL Baso # (Auto) 0.06 (0-0.2) K/uL Comprehensive Metabolic Panel 05/18/22 05/19/22 Range/Units 21:00 06:40 Sodium 135 L 135 L (136-145) mmol/L Potassium 5.0 4.8 (3.5-5.1) mmol/L Chloride 101 102 (98-107) mmol/L Carbon Dioxide 25 20 L (21-32) mmol/L BUN 27 H 21 (6-23) mg/dl Creatinine 0.93 0.81 (0.6-1.4) mg/dl Glucose 162 H 211 H (70-99(Fasting)) mg/dl Calcium 9.4 9.1 (8.5-10.1) mg/dl AST 19 (13-39) U/L ALT 26 (7-52) U/L Alkaline Phosphatase 71 (34-104) U/L Total Protein 8.1 (6.0-8.3) gm/dl Albumin 4.4 (3.4-5.0) gm/dl Intake and Output 05/18/22 05/19/22 05/19/22 22:59 06:59 14:59 Intake Total 500 / 1402.083 902.083 / 1402.083 108 / 108 Balance 500 / 1402.083 902.083 / 1402.083 108 / 108 Intake: IV 500 / 1402.083 902.083 / 1402.083 108 / 108 Ampicillin/Sulbactam Sod 3,000 108 / 108 mg In 0.9 % Sodium Chloride 100 ml @ 200 mls/hr IV Q6H [facility] Rx# :[id number] Sodium Chloride 0.9% 1000ML 1, 500 / 1402.083 902.083 / 1402.083 000 ml @ 125 mls/hr IV .Q8H [facility] Rx#:[id number] Other: Weight 140.9 kg 135.48 kg Weight Measurement Method [facility] Diagnostic Findings May 19, 2022 TTE interpretation summary ([facility], Dr. [place]): No comparison study available. Ejection fraction 60 to 65%. Mild concentric LVH. Mild aortic valve sclerosis. Grade 1 diastolic dysfunction. Continuous telemetry monitoring reveals sinus bradycardia in the 50s, heart rates up to 80 bpm. No significant bradycardia or pauses. No atrial fibrillation/flutter.
[2022-05-19] MEDS: DULoxetine HCL 60 MG CAP PO SCH ×2 (10:23→21:08)
[2022-05-19] MEDS: PANTOprazole 40 MG TAB PO SCH (10:23)
[2022-05-19] MEDS: lisinopril 20 MG TAB PO SCH (10:24)
[2022-05-19] MEDS: ROSUVASTATIN CALCIUM 20 MG TAB PO SCH (10:24)
[2022-05-19] MEDS: PHENYTOIN SODIUM ER 100 MG CAP PO SCH ×2 (10:24→21:07)
[2022-05-19] MEDS: ENOXAPARIN INJ 40 MG/0.4 ML SYR SQ SCH ×2 (10:24→21:06)
[2022-05-19] MEDS: busPIRone 15 MG TAB PO SCH ×2 (10:24→21:07)
[2022-05-19] MEDS: LANTUS PER UNIT CHARGE SQ SCH ×2 (10:33→20:48)
[2022-05-19 11:16] LABS: Estimated Average Glucose 143 mg/dl; Hemoglobin A1C 6.6 % (4.5-5.6)
--- NOTE | 2022-05-19 12:42 | Electrocardiogram Report ---
Test Reason : Blood Pressure : / mmHG Vent. Rate : 053 BPM Atrial Rate : 053 BPM P-R Int : 214 ms QRS Dur : 090 ms QT Int : 454 ms P-R-T Axes : -09 038 104 degrees QTc Int : 426 ms Sinus bradycardia with 1st degree A-V block Nonspecific T wave abnormality Abnormal ECG No previous ECGs available Confirmed by Darius Olson ([id number]) on 05/19/2022 12:42:03 PM Referred By: REFERRED SELF Confirmed By:Darius Olson
--- NOTE | 2022-05-19 12:51 | Electrocardiogram Report ---
Test Reason : Blood Pressure : / mmHG Vent. Rate : 055 BPM Atrial Rate : 055 BPM P-R Int : 218 ms QRS Dur : 092 ms QT Int : 462 ms P-R-T Axes : -14 027 133 degrees QTc Int : 441 ms Sinus bradycardia with 1st degree A-V block T wave abnormality, consider lateral ischemia Abnormal ECG When compared with ECG of 18-MAY-2022 20:24, (unconfirmed) No significant change was found Confirmed by Darius Olson ([id number]) on 05/19/2022 12:50:53 PM Referred By: REFERRED SELF Confirmed By:Darius Olson
[2022-05-19] MEDS ORDERED: OPTIRAY 320 500ml IV ONE (13:12)
--- NOTE | 2022-05-19 14:13 | CT Scan Report ---
CT ANGIOGRAM OF THE NECK CLINICAL HISTORY: Dizziness. Change in mental status COMPARISON STUDY: No priors. TECHNIQUE: Following the IV administration of 115 of Optiray 320, CT angiogram of the neck was perfor med from the aortic arch to the skull base. Images are reviewed in the axial, sagittal, and coronal p lanes. 3-D MIPS images are created and assessed. IV contrast was administered without complication. A ll measurements were calculated based on NASCET criteria. A dose lowering technique was utilized adh ering to the principles of ALARA. The examination is degraded by motion artifact. FINDINGS: Thoracic aorta: Visualized portions of the thoracic aorta are normal in caliber. The aortic arch demo nstrates standard 3-vessel anatomy. Right carotid arterial system: The right common carotid artery is widely patent, as are the right int ernal and external carotid arteries. Calcified plaque is noted in the carotid bulb. Left carotid arterial system: The left common carotid artery is widely patent, as are the left internal specialist al and external carotid arteries. Calcified plaque is noted in the carotid bulb. Vertebral arteries: The vertebral arteries are widely patent bilaterally and codominant. Subclavian arteries: Widely patent bilaterally. Intracranial vasculature: The visualized intracranial vessels at the skull base appear patent. There is a least moderate focal stenosis of the distal left vertebral artery below the basilar seen on imag e #[id number]. Jugular veins: Widely patent bilaterally. Brain parenchyma: The visualized brain parenchyma the skull base is within normal limits. Lung apices: Partially visualized upper lobe lung parenchyma appears clear. Soft tissues: The visualized pharyngeal soft tissues are normal in appearance noting angiographic pha se technique. The oropharyngeal airway appears widely patent. The thyroid gland is mildly enlarged an d heterogeneous. The salivary glands are normal in appearance. No cervical lymphadenopathy is seen. Skeletal structures: The skeletal structures are osteopenic. The visualized calvarium at the skull ba se appears intact. The imaged cervical spine is maintained noting multilevel spondylosis. No lytic or blastic lesion is seen. Sinuses and mastoids: The visualized paranasal sinuses are clear. The mastoid air cells are well pneu matized. IMPRESSION: 1. Unremarkable CT angiogram of the neck. 2. 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 3. Additional findings as above. ACT 112: Negative or not required by law. Electronically signed by: Geo Pisano M.D. 05/19/2022 2:12 PM
--- NOTE | 2022-05-19 14:29 | Magnetic Resonance Report ---
MR brain MS wo/w con CLINICAL HISTORY: Dizziness/LOC. History of MS. COMPARISON STUDY: Head CT and CTA of the head May 19, 2022. TECHNIQUE: Utilizing a 1.5 Shilpa magnet and dedicated coil, multiplanar, multiecho imaging of the bra in was performed pre and postcontrast administration according to the multiple sclerosis protocol. In travenous injection of 13.5 cc of Gadavist was uneventful. FINDINGS: There are no foci of restricted diffusion to suggest acute infarct. No acute intracranial h emorrhage, midline shift or mass effect is present. Brain volume is normal. The ventricular system is normal. Basal cisterns are patent. There are no extra axial collections. Flow-voids for the major in tracranial vessels are present. There is no intracranial mass or pathologic enhancement. There are se veral small T2 hyperintense foci within the right aspect of the les. Mild periventricular T2 hyperin tensity is noted. There are a few scattered T2 hyperintense foci within the deep white matter. There is no enhancement to suggest active demyelination. IMPRESSION: 1. No acute intracranial findings. 2. Scattered white matter T2 hyperintense foci and several small T2 hyperintense foci within the righ t aspect of the les. These could reflect previous sites of demyelination. Small vessel disease could appear similar. No evidence for active demyelination. ACT 112: Negative or not required by law. Electronically signed by: Leonardo Balderrama M.D. 05/19/2022 2:28 PM
[2022-05-19] MEDS: amLODIPine BESYLATE 5 MG TAB PO SCH (14:45)
[2022-05-19] MEDS: MECLIZINE HCL 25 MG TAB PO PRN (14:45)
[2022-05-19] MEDS: METOCLOPRAMIDE HCL INJ 5 MG/ML 2 ML VIAL IV PRN (14:45)
[2022-05-19] MEDS: ACETAMINOPHEN 325 MG TAB PO PRN (14:48)
--- NOTE | 2022-05-19 15:05 | Hospitalist Progress Note ---
Date of Service May 19, 2022 Assessment & Plan (1) Vertigo: (2) Nausea & vomiting: (3) Syncope: Plan: Present on admission with worsening dizziness and vomiting. Code purple this morning after he passed out while on the commode Possible related to acute meniere disease Syncope mostly due to vasovagal reaction CT head x2 showed no acute intracranial abnormality MRI head showed No acute intracranial findings. scattered white matter T2 hyperintense foci and several small T2 hyperintense foci within the right aspect of the les. No evidence for active demyelination. CTA head /neck showed unremarkable CT angiogram of the neck. 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 Neurology on board recommended meclizine for dizziness or if this does not help low-dose Valium ( 2-5 milligrams every 6-8 hours) as needed Will consult PT/OT Continue zofran/reglan IV prn Syncope Syncope mostly due to vasovagal reaction CT head x2 showed no acute intracranial abnormality MRI head showed No acute intracranial findings. scattered white matter T2 hyperintense foci and several small T2 hyperintense foci within the right aspect of the les. No evidence for active demyelination. CTA head /neck showed unremarkable CT angiogram of the neck. 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 Echocardiogram demonstrates preserved LV systolic function without significant valvular pathology. No evidence of acute coronary syndrome. cardiology on board Continue supportive therapy Continue monitor in Tele Left carotid artery stenosis Neck showed moderate focal stenosis of the intracranial left vertebral artery just below the basilar Will discuss finding with neuro Will consider to start aspirin 81 mg once vomiting resolve HTN BP elevated possible due to acute illness vs hospital setting Continue Lisinopril Amlodipine added continue monitor BP Hypoxia Questionable aspiration CXR showed The lungs are clear. No evidence of pleural effusion or pneumothorax. Elevated WBC and lactate Continue IV Unasyn for now Saturated well on RA Elevated WBC Possible reactive Elevated lactate Will check Blood cx and procalcitonin continue IV abx Continue monitor CBC Diabetes Hba1c 6.6 Continue to hold metformin Continue insulin sliding scale Continue monitor BS Mild elevate anion gap Possible related to vomiting/dehydration Continue IVF Will repeat BMP DVT px on Lovenox CODE status Full code Admission and Anticipated Discharge Date Admission Date: May 19, 2022 Subjective Pt was seen and examined for follow up of dizziness and syncope Lying in bed with no acute distress Pt said that he continues to feel dizzy and nausea/vomiting He had a code purple this morning after he passed out while on the commode He is very sleepy but able to follow command He had an NGT placed that removed since vomiting improved I spoke to brother at bedside that said pt had 2 episodes of dizziness associated with nausea and vomiting last year ( June and October) Brother said that in June, he spent 6 days in the hospital and October, he spent couple days Denies any chest pain, palpitation, dizziness and SOB Review of Systems Review of Systems: All systems reviewed & are unremarkable except as noted in Subjective Physical Exam Physical Exam: General- No acute distress Head- atraumatic Eyes- PERRL, EOMI, ENT- oropharynx clear Neck- supple, no JVD Lungs- clear to auscultation Heart- regular rhythm; no murmur Abdomen- normal bowel sounds, soft, nontender Extremities- no calf tenderness Neuro- alert, oriented x 3; PERRL, EOMI; no facial palsy; no dysarthria Skin- warm & dry Results & Data Results & [facility] ([facility]) Vital Signs (Past 12 Hours) Vital Signs Temp Pulse Pulse Resp BP Pulse Ox Pulse Ox 05/19/22 11:46 36.5 C 57 L 17 176/97 H 95 05/19/22 06:49 36.1 C L 67 204/95 H 94 05/19/22 04:40 36.5 C 58 L 14 163/86 H 99 05/19/22 05:02 36.5 C 58 L 14 163/86 H 99 05/19/22 05:02 99 05/19/22 05:00 36.5 C 58 L 14 163/86 H 99 05/19/22 04:57 05/19/22 04:00 60 18 160/79 H 96 O2 Del Method O2 Del Method O2 Flow Rate 05/19/22 11:46 Room Air 05/19/22 06:49 Oxymask 8 05/19/22 04:40 Room Air 05/19/22 05:02 Room Air 05/19/22 05:02 Room Air 05/19/22 05:00 Room Air 05/19/22 04:57 Room Air 05/19/22 04:00 Room Air
--- NOTE | 2022-05-19 15:17 | CT Scan Report ---
CT angio head wo/w: HISTORY: 66 years-old Male Dizziness/ LOC. Acute dizziness with loss of consciousness. COMPARISON: Head CT May 19, 2022. TECHNIQUE: CTA of the head was obtained both with and without the use of 115 cc Optiray 320. 3-D miguel a nal and sagittal MIPS were obtained from the axial data set and were submitted for review. All measur ements were obtained according to NASCET criteria. A dose lowering technique was used consistent with the principals of ELVIRA. FINDINGS: CT HEAD: No acute intracranial hemorrhage, midline shift, abnormal extra-axial collection, hydrocephalus, intr acranial mass or acute territorial infarct. Mild white matter hypodensities suggestive of chronic reuben rovascular ischemic disease. No acute calvarial fracture. The mastoid air cells and paranasal sinuses appear clear. Prior bilateral lens repair. CTA HEAD: Streak artifact from dental amalgam hardware. The imaged distal internal carotid arteries are patent. There is smooth luminal narrowing of approximately 50% involving the distal petrous and cavernous se gments of the right ICA. The anterior and middle cerebral arteries appear patent. The right A1 segmen t is not well visualized and is likely developmentally diminutive. The imaged distal vertebral arteri es are patent with high-grade stenosis noted involving the distal V4 segment of the left vertebral ar zonia on image 53 series 5. Focal short segment area of approximately 60% stenosis involves the mid ba silar artery, image 79 series 5. Mild to moderate multifocal luminal narrowing of the posterior cereb ral arteries. The cerebral venous sinuses are patent. There is no abnormal intracranial enhancement i dentified. IMPRESSION: 1. No acute intracranial abnormality. 2. 50% luminal narrowing involves the cavernous segment right ICA, presumably secondary to atheromato us plaque. 3. High-grade stenosis of the distal V4 segment left vertebral artery with approximately 60% stenosis of the mid basilar artery. ACT 112: Negative or not required by law. The above report was generated using voice recognition software. It may contain grammatical, syntax o r spelling errors. Dictated: 05/19/2022 1:34 PM Transcribed: 05/19/2022 1:58 PM Stephanie [phone] [facility] Electronically signed by: Siddharth Aguayo M.D. 05/19/2022 3:15 PM
[2022-05-19 18:58] LABS: BUN Creatinine Ratio 18.5 (10-20); Calcium 9.1 mg/dl (8.5-10.1); Est GFR (African American) 99.4 ml/min; Est GFR (Non-African American) 85.8 ml/min; Phosphorus 3.5 mg/dl (2.5-4.9); Potassium 4.2 mmol/L (3.5-5.1)
[2022-05-19] MEDS ORDERED: ACETAMINOPHEN 1,000 MG/100 ML VIAL IV ONE (19:10)
[2022-05-19] MEDS: diphenhydrAMINE 50 MG/ML VIAL IV PRN (20:17)
[2022-05-19] MEDS: CYCLOBENZAPRINE HCL 10 MG TAB PO SCH (21:07)
[2022-05-20] MEDS: AMPICILLIN/SULBACTAM SOD 3,000 MG in 0.9 % SODIUM CHLORIDE 100 ML IV SCH ×4 (00:01→18:49)
[2022-05-20] MEDS: SODIUM CHLORIDE 0.9% 1000ML 1,000 ML IV SCH ×3 (00:01→20:34)
[2022-05-20] MEDS: ONDANSETRON INJ 2 MG/ML 2 ML VIAL IV PRN ×2 (04:01→15:49)
[2022-05-20 07:47] LABS: Hematocrit (blood only) 39.5 % (40.1-51.0); Hemoglobin 13.7 g/dl (14.0-18.0); Mean Corpuscular Hemoglobin 29.8 pg (25.0-34.0); Mean Corpuscular Hgb Conc 34.7 g/dL (32.0-36.0); Mean Corpuscular Volume 85.9 fL (80.0-100.0); Mean Platelet Volume 9.8 fL (9.4-12.4); Platelet Count 233 K/uL (130-400); RDW Coefficient of Variation 13.2 % (11.5-14.5); RDW Standard Deviation 40.7 fL (36.4-46.3); White Blood Count 13.71 K/ul (4.8-10.8)
[2022-05-20] MEDS: INSULIN ASPART PER UNIT SC SCH ×4 (08:03→20:49)
[2022-05-20] MEDS: METOCLOPRAMIDE HCL INJ 5 MG/ML 2 ML VIAL IV PRN ×2 (08:07→16:21)
[2022-05-20 08:19] LABS: Phosphorus 2.9 mg/dl (2.5-4.9)
[2022-05-20] MEDS: LANTUS PER UNIT CHARGE SQ SCH ×2 (08:21→20:49)
[2022-05-20] MEDS: busPIRone 15 MG TAB PO SCH ×2 (09:22→20:35)
[2022-05-20] MEDS: amLODIPine BESYLATE 5 MG TAB PO SCH (09:22)
[2022-05-20] MEDS: DULoxetine HCL 60 MG CAP PO SCH ×2 (09:23→20:36)
[2022-05-20] MEDS: lisinopril 20 MG TAB PO SCH ×2 (09:23→20:35)
[2022-05-20] MEDS: PANTOprazole 40 MG TAB PO SCH (09:23)
[2022-05-20] MEDS: ENOXAPARIN INJ 40 MG/0.4 ML SYR SQ SCH ×2 (09:23→20:39)
[2022-05-20] MEDS: ROSUVASTATIN CALCIUM 20 MG TAB PO SCH (09:24)
[2022-05-20] MEDS: PHENYTOIN SODIUM ER 100 MG CAP PO SCH ×2 (09:24→20:37)
[2022-05-20] MEDS: ACETAMINOPHEN 325 MG TAB PO PRN ×3 (10:16→20:34)
--- NOTE | 2022-05-20 10:36 | Cardiology Progress Note ---
Date of Service May 20, 2022 Assessment & Plan (1) Vertigo: (2) Dizziness: (3) Nausea & vomiting: (4) Vasovagal episode: (5) Hypertension: Plan 66-year-old male admitted with severe vertigo. Cardiology consultation requested after an episode of altered consciousness, suspected vasovagal episode RECOMMENDATIONS/PLAN: Increase lisinopril to 20 mg twice a day for additional blood pressure control Continue amlodipine which is a new antihypertensive medication this admission. Add low dose HCTZ next if/when additional blood pressure control is needed, with close monitoring of sodium, renal function. Avoid AV raj rodo therapy Contact with any questions or concerns. Admission and Anticipated Discharge Date Admission Date: May 19, 2022 Supervising Physician Co-Signing Physician Notes 66-year-old male seen and examined at the bedside. Vertigo improved with medical therapies. No recurrent lightheadedness or dizziness. Denies chest pain or shortness of breath. Previously noted nausea and vomiting has resolved. PE: Hypertensive otherwise stable vital signs. General:NAD, AAO x3. Heart: Regular rhythm, normal S1-S2. No murmur. Lungs: Clear bilateral, no rales, rhonchi, wheeze. Abdomen: Mildly distended, nontender, soft. No rebound or guarding. Extremities: No edema. A/P: Agree with above PA-C history, physical exam, assessment and plan. Echocardiogram demonstrates preserved LV systolic function without significant valvular pathology. No evidence of acute coronary syndrome. Recommend continue telemetry monitoring. Maintain adequate hydration. Antihypertensive therapy as noted above. Subjective Patient seen and examined. Chart, medications, and telemetry reviewed. NG tube removed. Patient feels a lot better this morning. Still with ongoing dizziness, nausea, emesis after eating toast. Blood pressures have improved though remain elevated. Continuous telemetry monitoring reveals sinus rhythm with heart rates predominantly in the 60s and 70s, occasional PVCs. No significant bradycardia or pauses. No atrial arrhythmias. May 19, 2022 TTE interpretation summary ([employer] [facility], Dr. [place]): No comparison study available. Ejection fraction 60 to 65%. Mild concentric LVH. Mild aortic valve sclerosis. Grade 1 diastolic dysfunction. Review of Systems Review of Systems: Complete Review of Systems is as stated above, negative, or noncontributory. Physical Exam Physical Exam: General: Alert to person, place and time. No acute distress. HENT: Normocephalic. Atraumatic. Eyes: PER. Conjunctiva pink, sclera clear. Neck: No carotid bruits. No overt JVD. Heart: RRR, 66 bpm. No murmur. Lungs: Clear anteriorly. Abdomen: +BS. Extremities: No clubbing, cyanosis, or significant edema. Limited neurological examination is without focal deficits. Pulses: Posterior tibial=1/4. Results & Data ([facility]) Vital Signs (Past 12 Hours) Vital Signs Temp Pulse Pulse Resp BP BP Pulse Ox 05/20/22 07:21 36.7 C 63 18 162/59 H 93 05/20/22 03:17 37.1 C 69 20 136/69 96 05/19/22 23:27 69 05/19/22 22:43 37.6 C H 71 18 168/71 H 95 O2 Del Method 05/20/22 07:21 Room Air 05/20/22 03:17 Room Air 05/19/22 23:27 05/19/22 22:43 Room Air Laboratory Results CBC 05/19/22 05/20/22 Range/Units 06:40 07:13 WBC 11.06 H 13.71 H (4.8-10.8) K/ul RBC 5.10 4.60 L (4.63-6.08) M/uL Hgb 15.2 13.7 L (14.0-18.0) g/dl Hct 44.3 39.5 L (40.1-51.0) % Plt Count 183 233 (130-400) K/uL Comprehensive Metabolic Panel 05/19/22 05/19/22 Range/Units 06:40 18:17 Sodium 135 L 137 (136-145) mmol/L Potassium 4.8 4.2 (3.5-5.1) mmol/L Chloride 102 102 (98-107) mmol/L Carbon Dioxide 20 L 26 (21-32) mmol/L BUN 21 17 (6-23) mg/dl Creatinine 0.81 0.92 (0.6-1.4) mg/dl Glucose 211 H 158 H (70-99(Fasting)) mg/dl Calcium 9.1 9.1 (8.5-10.1) mg/dl Intake and Output 01/03/23 01/04/23 01/04/23 22:59 06:59 14:59 Intake Total 1316 / 2532 108 / 2532 1108 / 1108 Output Total 1550 / 1800 250 / 1800 350 / 350 Balance -234 / 732 -142 / 732 758 / 758 Intake: IV 1316 / 2532 108 / 2532 1108 / 1108 Acetaminophen 1,000 mg In 100 100 / 100 ml @ 400 mls/hr IV ONE ONE Rx#: [id number] Ampicillin/Sulbactam Sod 3,000 216 / 432 108 / 432 108 / 108 mg In 0.9 % Sodium Chloride 100 ml @ 200 mls/hr IV Q6H [facility] Rx# :[id number] Sodium Chloride 0.9% 1000ML 1, 1000 / 2000 1000 / 1000 000 ml @ 125 mls/hr IV .Q8H [facility] Rx#:[id number] Oral 0 / 0 Output: Emesis 150 / 150 Urine Amount (Catheter) 1550 / 1800 250 / 1800 200 / 200 External 1550 / 1800 250 / 1800 200 / 200 Other: Other Intake Source Sips # Emeses 2 Weight 134.9 kg Weight Measurement Method Built in [facility]
--- NOTE | 2022-05-20 11:34 | Neurology Progress Note ---
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 He is stable from this. He is on no antiplatelet medication. He had carried a diagnosis of multiple sclerosis but has recently seen an MS specialist (Dr. Sullivan In December of this year) who doubts the diagnosis. He is on no MS disease modifying therapy. 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 He does have peripheral neuropathy on exam likely secondary to diabetes. He has a history of hypertension and this was elevated on admission. The patient has severe vertigo and it is likely inner ear in origin (with the tinnitus on the right and hearing loss on the right this could be consistent with a severe acute Menieres syndrome). He has no other focal neurologic findings. In addition, CT angiography reveals significant left vertebral as well as mod erate basilar and right internal carotid artery Recommendations: 1. continue meclizine for dizziness, or if this does not help low-dose Valium ( 2-5 milligrams every 6-8 hours) as needed 2. ondansetron for nausea. 3. initiate clopidogrel 75 milligrams daily +80 1 milligram aspirin daily for 3 weeks, and then remain on clopidogrel alone Overall, I spent a total of 35 minutes with this case including review of records, Review of MRI films, direct evaluation the patient at bedside, and discussion of the case with the patient and RN at bedside and Dr. Maxwell, including differential diagnosis and treatment options. Admission and Anticipated Discharge Date Admission Date: May 19, 2022 Subjective patient feels much better today than yesterday. He is able to open his eyes more and look around without getting dizzy. He still gets dizziness if he moved his head however. Blood pressure is 162/59. MRI of the brain showed old small vessel ischemic disease including the les but no acute stroke. I reviewed these films. CT angiography of the head and neck revealed 50 percent stenosis in the distal right internal carotid artery, high-grade stenosis in the distal left vertebral artery, and a 60 percent stenosis in the mid basilar artery. CBC shows mild anemia with a mildly elevated white count and glucose of 129. Results & Data ([facility]) Vital Signs (Past 12 Hours) Vital Signs Temp Pulse Pulse Resp BP BP Pulse Ox 05/20/22 07:21 36.7 C 63 18 162/59 H 93 05/20/22 03:17 37.1 C 69 20 136/69 96 05/19/22 23:27 69 O2 Del Method 05/20/22 07:21 Room Air 05/20/22 03:17 Room Air 05/19/22 23:27 Exam (Neuro) Physical Exam: he is awake and alert. His speech is much improved compared to yesterday and he is without aphasia or dysarthria. Mood is reasonable and affect is appropriate. Thought processes are improved compared to yesterday. He is able to sit with his eyes open and look in any direction without vertigo. This is improved from yesterday. Extraocular eye muscles are intact without nystagmus. There is no facial droop. Tongue is midline. Coordination is normal in the arms without tremor or ataxia. Strength is symmetric. Stance sitting up in bed is unremarkable. PG Care Time/CCT Total # of Minutes Spent Total Time Spent with Patient: Total time spent is greater than 50% in coordination of care (as documented) at patient's floor/unit and/or counseling patient: Coding Level of Care Code 12225 SUB INP/OBS CARE 3/50MIN Diagnoses Vertigo R42 Vertebrobasilar artery stenosis I65.1; I65.09 Nausea & vomiting R11.2 Hx of multiple sclerosis G35 Time Spent (min) 35
[2022-05-20] MEDS: MECLIZINE HCL 25 MG TAB PO PRN ×2 (11:47→20:37)
--- NOTE | 2022-05-20 17:27 | Hospitalist Progress Note ---
Date of Service May 20, 2022 Assessment & Plan (1) Vertigo: (2) Nausea & vomiting: (3) Syncope: Plan: Present on admission with worsening dizziness and vomiting. Code purple this morning after he passed out while on the commode Possible related to acute meniere disease Syncope mostly due to vasovagal reaction CT head x2 showed no acute intracranial abnormality MRI head showed No acute intracranial findings. scattered white matter T2 hyperintense foci and several small T2 hyperintense foci within the right aspect of the les. No evidence for active demyelination. CTA head /neck showed unremarkable CT angiogram of the neck. 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 Neurology on board recommended meclizine for dizziness or if this does not help low-dose Valium ( 2-5 milligrams every 6-8 hours) as needed Continue zofran/reglan IV prn Clinically improved Syncope Syncope mostly due to vasovagal reaction CT head x2 showed no acute intracranial abnormality MRI head showed No acute intracranial findings. scattered white matter T2 hyperintense foci and several small T2 hyperintense foci within the right aspect of the les. No evidence for active demyelination. CTA head /neck showed unremarkable CT angiogram of the neck. 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 Echocardiogram demonstrates preserved LV systolic function without significant valvular pathology. No evidence of acute coronary syndrome. cardiology on board Continue supportive therapy Continue monitor in Tele Vertebrobasilar artery stenosis Neck showed moderate focal stenosis of the intracranial left vertebral artery just below the basilar Discussed CTA neck and head finding with neuro dr. Quiros that recommended plavix and aspirin for 3 weeks, then after 21 days to continue plavix alone Continue monitor HTN BP elevated possible due to acute illness vs hospital setting Lisinopril increased to 20 mg twice daily continue amlodipine 5 mg Amlodipine added continue monitor BP Hypoxia Questionable aspiration CXR showed The lungs are clear. No evidence of pleural effusion or pneumothorax. Elevated WBC and lactate Continue IV Unasyn for now Saturated well on RA Elevated WBC Possible reactive Elevated lactate Blood cx no growth and procalcitonin normal continue IV abx Continue monitor CBC Diabetes Hba1c 6.6 Continue to hold metformin Continue insulin sliding scale Continue monitor BS Mild elevate anion gap Possible related to vomiting/dehydration Continue IVF Resolved DVT px on Lovenox CODE status Full code Admission and Anticipated Discharge Date Admission Date: May 19, 2022 Subjective Pt was seen and examined for follow up of dizziness, nausea and vomiting Lying in bed with no acute distress Pt is looking much better today compare to yesterday Denies any chest pain, palpitation, dizziness and SOB Review of Systems Review of Systems: All systems reviewed & are unremarkable except as noted in Subjective Physical Exam Physical Exam: General- No acute distress Head- atraumatic Eyes- PERRL, EOMI, ENT- oropharynx clear Neck- supple, no JVD Lungs- clear to auscultation Heart- regular rhythm; no murmur Abdomen- normal bowel sounds, soft, nontender Extremities- no calf tenderness Neuro- alert, oriented x 3; PERRL, EOMI; no facial palsy; no dysarthria Skin- warm & dry Results & Data Results & Data ([facility]) Vital Signs (Past 12 Hours) Vital Signs Temp Pulse Resp BP Pulse Ox O2 Del Method 05/20/22 16:28 36.3 C L 58 L 18 144/62 H 92 Room Air 05/20/22 12:50 36.7 C 63 18 145/64 H 91 Room Air 05/20/22 07:21 36.7 C 63 18 162/59 H 93 Room Air
[2022-05-20] MEDS: ASPIRIN 81 MG ECTAB PO SCH (19:29)
[2022-05-20] MEDS: diphenhydrAMINE 50 MG/ML VIAL IV PRN (20:34)
[2022-05-20] MEDS: CYCLOBENZAPRINE HCL 10 MG TAB PO SCH (20:39)
[2022-05-21] MEDS: ONDANSETRON INJ 2 MG/ML 2 ML VIAL IV PRN ×2 (00:09→05:54)
[2022-05-21] MEDS: AMPICILLIN/SULBACTAM SOD 3,000 MG in 0.9 % SODIUM CHLORIDE 100 ML IV SCH ×4 (00:09→20:33)
[2022-05-21] MEDS: METOCLOPRAMIDE HCL INJ 5 MG/ML 2 ML VIAL IV PRN (06:27)
[2022-05-21] MEDS: SODIUM CHLORIDE 0.9% 1000ML 1,000 ML IV SCH (06:32)
[2022-05-21 07:43] LABS: Hematocrit (blood only) 39.3 % (40.1-51.0); Hemoglobin 13.5 g/dl (14.0-18.0); Mean Corpuscular Hemoglobin 29.6 pg (25.0-34.0); Mean Corpuscular Hgb Conc 34.4 g/dL (32.0-36.0); Mean Corpuscular Volume 86.2 fL (80.0-100.0); Mean Platelet Volume 9.1 fL (9.4-12.4); Platelet Count 198 K/uL (130-400); RDW Coefficient of Variation 12.8 % (11.5-14.5); RDW Standard Deviation 39.9 fL (36.4-46.3); Red Blood Count 4.56 M/uL (4.63-6.08); White Blood Count 11.37 K/ul (4.8-10.8)
[2022-05-21 08:06] LABS: BUN Creatinine Ratio 16.7 (10-20); Calcium 8.3 mg/dl (8.5-10.1); Creatinine Clr Calc Pharmacy 121.7 ml/min; Est GFR (Non-African American) 90.6 ml/min; Magnesium 1.9 mg/dl (1.7-2.4); Potassium 3.7 mmol/L (3.5-5.1)
[2022-05-21] MEDS: INSULIN ASPART PER UNIT SC SCH ×4 (08:14→20:26)
[2022-05-21] MEDS: LANTUS PER UNIT CHARGE SQ SCH ×2 (08:15→20:45)
[2022-05-21] MEDS: PANTOprazole 40 MG TAB PO SCH (08:21)
[2022-05-21] MEDS: ASPIRIN 81 MG ECTAB PO SCH (08:21)
[2022-05-21] MEDS: amLODIPine BESYLATE 5 MG TAB PO SCH (08:21)
[2022-05-21] MEDS: PHENYTOIN SODIUM ER 100 MG CAP PO SCH ×2 (08:21→20:26)
[2022-05-21] MEDS: lisinopril 20 MG TAB PO SCH ×2 (08:21→20:26)
[2022-05-21] MEDS: ROSUVASTATIN CALCIUM 20 MG TAB PO SCH (08:21)
[2022-05-21] MEDS: busPIRone 15 MG TAB PO SCH ×2 (08:22→20:26)
[2022-05-21] MEDS: CLOPIDOGREL BISULFATE 75 MG TAB PO SCH (08:22)
[2022-05-21] MEDS: ENOXAPARIN INJ 40 MG/0.4 ML SYR SQ SCH ×2 (08:22→20:27)
[2022-05-21] MEDS: DULoxetine HCL 60 MG CAP PO SCH ×2 (08:22→20:26)
--- NOTE | 2022-05-21 09:14 | Neurology Progress Note ---
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 He is stable from this. He was on no antiplatelet medication. In addition, He had carried a diagnosis of multiple sclerosis, but recently saw an MS specialist (Dr. Sullivan in December of this year) who doubts the diagnosis. He has never been on MS disease modifying therapy. He does take Dilantin for cramping and may have an unusual neuromuscular disease. He does have peripheral neuropathy on exam likely secondary to diabetes. He has a history of hypertension and this was elevated on admission. The patient had severe vertigo and it is likely inner ear in origin (with the tinnitus and hearing loss on the right, this is consistent with a severe, acute Menieres syndrome). He has no other focal neurologic findings. Today he is Clinically markedly improved compared to previous. In addition, CT angiography reveals significant left vertebral as well as moderate basilar and right internal carotid artery. Vertebral basilar insufficiency could easily lead to additional vertigo /lightheadedness Recommendations: 1. continue meclizine as needed for dizziness. He has not required benzodiazepines 2. ondansetron for nausea as needed. 3. continue clopidogrel 75 milligrams daily + 81 milligram aspirin daily for 3 weeks, and then remain on clopidogrel alone 4. Increase activity as able today. Overall, I spent a total of 35 minutes with this case including review of records, direct evaluation the patient at bedside, and discussion of the case with the patient and RN at bedside and Dr. Maxwell, including differential diagnosis and treatment options. Admission and Anticipated Discharge Date Admission Date: May 20, 2022 Subjective Patient is doing markedly better this morning. He is not had any nausea or vomiting today and he is able to move quite a bit without any significant dizziness or vertigo. He was able to eat a meal for the 1st time in several days, this morning. He still has tinnitus and hearing loss in the right ear. He denies any numbness or weakness in the limbs, headache, or confusion. Blood pressure is 137/73. He is afebrile. Results & Data ([facility]) Vital Signs (Past 12 Hours) Vital Signs Temp Pulse Pulse Resp BP Pulse Ox O2 Del Method 05/21/22 07:13 36.7 C 59 L 18 137/73 94 Room Air 05/21/22 03:49 37.0 C 65 20 157/72 H 96 Room Air 05/21/22 00:12 36.5 C 62 18 136/70 96 Room Air 05/20/22 23:56 61 Exam (Neuro) Physical Exam: Patient is awake and alert. Speech is without aphasia or dys arthria. Mood is normal and affect is appropriate. Thought processes see reasonable to conversation. Extraocular eye muscles are intact without nystagmus both in primary gaze and after turning his head and neck to the right and left with eyes in all directions. He has no dysconjugate gaze. There is no facial droop and tongue is midline. He can sit up in bed without dizziness. Coordination is normal in the arms without tremor or ataxia and strength is normal and symmetrical in all 4 limbs. PG Care Time/CCT Total # of Minutes Spent Total Time Spent with Patient: Total time spent is greater than 50% in coordination of care (as documented) at patient's floor/unit and/or counseling patient: Coding Level of Care Code 33159 SUB INP/OBS CARE 2/35MIN Diagnoses Vertigo R42 Vertebrobasilar artery stenosis I65.1; I65.09 Nausea & vomiting R11.2 Hx of multiple sclerosis G35 Time Spent (min) 35
--- NOTE | 2022-05-21 10:10 | Cardiology Progress Note ---
Date of Service May 21, 2022 Assessment & Plan (1) Vertigo: (2) Dizziness: (3) Nausea & vomiting: (4) Vasovagal episode: (5) Hypertension: Plan 66-year-old male admitted with severe vertigo. Cardiology consultation requested after an episode of altered consciousness, suspected vasovagal episode RECOMMENDATIONS/PLAN: Continue as prescribed. Amlodipine added, lisinopril increased this admission Avoid AV raj rodo therapy Contact with any questions or concerns; signing off. Admission and Anticipated Discharge Date Admission Date: May 20, 2022 Supervising Physician Co-Signing Physician Notes 66-year-old male seen and examined at the bedside. Feeling better today. No recurrent nausea or vomiting. Tolerated a.m. meal. Denies chest pain or shortness of breath. PE: Hypertensive otherwise stable vital signs. General:NAD, AAO x3. Heart: Regular rhythm, normal S1-S2. No murmur. Lungs: Clear bilateral, no rales, rhonchi, wheeze. Abdomen: Mildly distended, nontender, soft. No rebound or guarding. Extremities: No edema. A/P: Agree with above PA-C history, physical exam, assessment and plan. Echocar diogram demonstrates preserved LV systolic function without significant valvular pathology. No evidence of acute coronary syndrome. Continue medications as prescribed. No further cardiac testing or intervention recommended. Cardiology will sign off. Please call with any concerns or questions. Subjective Patient evaluated. Chart, medications, and telemetry reviewed. Feels a whole lot better. Partaking in OT. Telemetry with sinus rhythm in the 60s with rare ectopic beat. No significant bradycardia. Blood pressure improved. Review of Systems Review of Systems: Complete Review of Systems is as stated above, negative, or noncontributory. Physical Exam Physical Exam: General: No acute distress. HENT: Normocephalic. Atraumatic. Heart: Regular Extremities: No edema. Results & Data ([facility]) Vital Signs (Past 12 Hours) Vital Signs Temp Pulse Pulse Resp BP Pulse Ox O2 Del Method 05/21/22 07:13 36.7 C 59 L 18 137/73 94 Room Air 05/21/22 03:49 37.0 C 65 20 157/72 H 96 Room Air 05/21/22 00:12 36.5 C 62 18 136/70 96 Room Air 01/04/23 23:56 61 Laboratory Results CBC 05/21/22 Range/Units 07:28 WBC 11.37 H (4.8-10.8) K/ul RBC 4.56 L (4.63-6.08) M/uL Hgb 13.5 L (14.0-18.0) g/dl Hct 39.3 L (40.1-51.0) % Plt Count 198 (130-400) K/uL Comprehensive Metabolic Panel 05/21/22 Range/Units 07:28 Sodium 138 (136-145) mmol/L Potassium 3.7 (3.5-5.1) mmol/L Chloride 106 (98-107) mmol/L Carbon Dioxide 25 (21-32) mmol/L BUN 14 (6-23) mg/dl Creatinine 0.84 (0.6-1.4) mg/dl Glucose 106 H (70-99(Fasting)) mg/dl Calcium 8.3 L (8.5-10.1) mg/dl Intake and Output 05/20/22 05/21/22 05/21/22 22:59 06:59 14:59 Intake Total 1108 / 4057 1158 / 4057 108 / 108 Output Total 125 / 1250 450 / 1250 500 / 500 Balance 983 / 2807 708 / 2807 -392 / -392 Intake: IV 1108 / 3432 1108 / 3432 108 / 108 Ampicillin/Sulbactam Sod 3,000 108 / 432 108 / 432 108 / 108 mg In 0.9 % Sodium Chloride 100 ml @ 200 mls/hr IV Q6H KEN Rx# :[id number] Sodium Chloride 0.9% 1000ML 1, 1000 / 3000 1000 / 3000 000 ml @ 50 mls/hr IV .Q20H KEN Rx#:[id number] Oral 50 / 625 Output: Urine 450 / 675 500 / 500 Emesis 125 / 375 Other: # Emeses 1 Weight 135.6 kg Weight Measurement Method Built in [facility]
[2022-05-21] MEDS: CYCLOBENZAPRINE HCL 10 MG TAB PO SCH (20:32)
[2022-05-21] MEDS ORDERED: guaiFENesin/CODEINE 100MG/10MG 5ML UDC PO PRN (20:50)
--- NOTE | 2022-05-21 22:28 | Hospitalist Progress Note ---
Date of Service May 21, 2022 Assessment & Plan (1) Vertigo: (2) Nausea & vomiting: (3) Syncope: Plan: Present on admission with worsening dizziness and vomiting. Code purple this morning after he passed out while on the commode Possible related to acute meniere disease Syncope mostly due to vasovagal reaction CT head x2 showed no acute intracranial abnormality MRI head showed No acute intracranial findings. scattered white matter T2 hyperintense foci and several small T2 hyperintense foci within the right aspect of the les. No evidence for active demyelination. CTA head /neck showed unremarkable CT angiogram of the neck. 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 Neurology on board recommended meclizine for dizziness or if this does not help low-dose Valium ( 2-5 milligrams every 6-8 hours) as needed Continue zofran/reglan IV prn Clinically improved He was able to keep his meal down Syncope Syncope mostly due to vasovagal reaction CT head x2 showed no acute intracranial abnormality MRI head showed No acute intracranial findings. scattered white matter T2 hyperintense foci and several small T2 hyperintense foci within the right aspect of the les. No evidence for active demyelination. CTA head /neck showed unremarkable CT angiogram of the neck. 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 Echocardiogram demonstrates preserved LV systolic function without significant valvular pathology. No evidence of acute coronary syndrome. 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 Quiros that recommended plavix and aspirin for 3 weeks, then after 21 days to continue plavix alone Stable from neurological standpoint HTN BP elevated possible due to acute illness vs hospital setting Continue lisinopril 20 mg twice daily and amlodipine 5 mg daily continue monitor BP Hypoxia Questionable aspiration CXR showed The lungs are clear. No evidence of pleural effusion or pneumothorax. Elevated WBC and lactate on admission WBC trending down Currently on IV Unasyn Will discontinue antibiotic Saturated well on RA Elevated WBC Possible reactive Elevated lactate Blood cx no growth and procalcitonin normal Procalcitonin normal Consider to discontinue IV antibiotic Continue monitor CBC Diabetes Hba1c 6.6 Continue to hold metformin Continue insulin sliding scale Continue monitor BS Mild elevate anion gap Possible related to vomiting/dehydration Continue IVF Resolved DVT px on Lovenox CODE status Full code Disposition Plan to discharge home tomorrow Admission and Anticipated Discharge Date Admission Date: May 20, 2022 Subjective Pt was seen and examined for follow up of dizziness, nausea and vomiting Lying in bed with no acute distress Patient is looking a lot better today He said that he is back to his baseline He walked with therapy and tolerated his diet today Denies any chest pain, palpitation, dizziness and SOB Review of Systems Review of Systems: All systems reviewed & are unremarkable except as noted in Subjective Physical Exam Physical Exam: General- No acute distress Head- atraumatic Eyes- PERRL, EOMI, ENT- oropharynx clear Neck- supple, no JVD Lungs- clear to auscultation Heart- regular rhythm; no murmur Abdomen- normal bowel sounds, soft, nontender Extremities- no calf tenderness Neuro- alert, oriented x 3; PERRL, EOMI; no facial palsy; no dysarthria Skin- warm & dry Results & Data Results & Data ([facility]) Vital Signs (Past 12 Hours) Vital Signs Temp Pulse Resp BP Pulse Ox O2 Del Method 05/21/22 20:00 Room Air 05/21/22 19:00 36.6 C 64 16 162/78 H 95 Room Air 05/21/22 11:49 36.6 C 56 L 18 161/77 H 95 Room Air
[2022-05-22] MEDS: AMPICILLIN/SULBACTAM SOD 3,000 MG in 0.9 % SODIUM CHLORIDE 100 ML IV SCH ×3 (01:07→13:22)
[2022-05-22] MEDS: SODIUM CHLORIDE 0.9% 1000ML 1,000 ML IV SCH (07:07)
[2022-05-22] MEDS: INSULIN ASPART PER UNIT SC SCH ×2 (08:18→12:30)
[2022-05-22] MEDS: LANTUS PER UNIT CHARGE SQ SCH (08:22)
[2022-05-22 08:38] LABS: Hematocrit (blood only) 38.1 % (40.1-51.0); Hemoglobin 13.4 g/dl (14.0-18.0); Mean Corpuscular Hemoglobin 29.7 pg (25.0-34.0); Mean Corpuscular Hgb Conc 35.2 g/dL (32.0-36.0); Mean Corpuscular Volume 84.5 fL (80.0-100.0); Mean Platelet Volume 9.6 fL (9.4-12.4); Platelet Count 185 K/uL (130-400); RDW Coefficient of Variation 12.3 % (11.5-14.5); RDW Standard Deviation 37.5 fL (36.4-46.3); Red Blood Count 4.51 M/uL (4.63-6.08); White Blood Count 9.34 K/ul (4.8-10.8)
[2022-05-22] MEDS: MECLIZINE HCL 25 MG TAB PO PRN (09:09)
[2022-05-22] MEDS: ASPIRIN 81 MG ECTAB PO SCH (09:09)
[2022-05-22] MEDS: PHENYTOIN SODIUM ER 100 MG CAP PO SCH (09:10)
[2022-05-22] MEDS: amLODIPine BESYLATE 5 MG TAB PO SCH (09:10)
[2022-05-22] MEDS: ROSUVASTATIN CALCIUM 20 MG TAB PO SCH (09:10)
[2022-05-22] MEDS: CLOPIDOGREL BISULFATE 75 MG TAB PO SCH (09:10)
[2022-05-22] MEDS: PANTOprazole 40 MG TAB PO SCH (09:10)
[2022-05-22] MEDS: busPIRone 15 MG TAB PO SCH (09:11)
[2022-05-22] MEDS: DULoxetine HCL 60 MG CAP PO SCH (09:11)
[2022-05-22] MEDS: lisinopril 20 MG TAB PO SCH (09:11)
[2022-05-22] MEDS: ENOXAPARIN INJ 40 MG/0.4 ML SYR SQ SCH (09:11)
--- NOTE | 2022-05-22 11:56 | Discharge Summary ---
Date of Service May 22, 2022 Admission HPI Per Admitting Provider 66-year-old man with PMH of T2DM, HLD, diabetic peripheral angiopathy, COPD, HTN, obesity class III, GERD, BPH, multiple sclerosis CAMI, recurrent major depressive disorder, history of CVA presented to the ED 1/2 with complaint of vertigo associated with nausea and sweating. Patient reports sudden onset vertigo last evening (on the day of arrival to ED) around 5:30 PM while trying to undo his shoes, felt nauseous and profuse sweating, vomiting and weak. Patient reports he has been hospitalized with vertigo 2 times in the past, June and November 2019. Patient reports "everything spinning" including the room and himself when he has vertigo. He has notable past medical history of stroke, MS and vertigo. Patient was treated with IV Versed, IV Zofran and p.o. meclizine, patient with some relief of vertigo and then a plan was to discharge him from ED but again his vertigo started to come back and hence decision was made to admit the patient under observation and treat his vertigo. Patient denies any fever/headache/cough. Patient reports good appetite. Patient denies any acute changes in his bowel or bladder habit. Patient denies any chest pain/palpitations/belly pain. Patient denies any numbness. Patient quit smoking 2006, drinks 1-2 beers a day generally but his last drink this time is last Wednesday. Denies any recreational drug use. DNR/DNI as per my discussion with the patient. 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 Medications reviewed with the patient. Plan of care discussed with the patient. Admission Exam Per Admitting Provider GENERAL: Alert and oriented x3. NAD, on RA. Mild distress, lying semiupright w/ eyes closed. Obese Class III. HEENT: No pallor, no icterus. Pupils equal, round and reactive to light. Oral mucosa moist. NECK: No JVD, no neck masses. HEART: S1 and S2 heard. Regular rate and rhythm. No murmur, no gallop. RESPIRATORY SYSTEM: Normal AP diameter. No accessory muscle use. No wheezing, no crackles. ABDOMEN: Soft, bowel sounds present, nontender, no distention. CENTRAL NERVOUS SYSTEM: No facial droop. Speech is clear. Obeys simple commands. Moves extremities. EXTREMITIES: No edema, no erythema seen. Principal Diagnosis Syncope Nausea/Vomiting Vertebrobasilar artery stenosis Hypertension Hypoxia Elevated WBC Diabetes Mild elevate anion gap Discharge Exam General- No acute distress Head- atraumatic Eyes- PERRL, EOMI, ENT- oropharynx clear Neck- supple, no JVD Lungs- clear to auscultation Heart- regular rhythm; no murmur Abdomen- normal bowel sounds, soft, nontender Extremities- no calf tenderness Neuro- alert, oriented x 3; PERRL, EOMI; no facial palsy; no dysarthria Skin- warm & dry Discharge Data Allergies Allergy/AdvReac Type Severity Reaction Status Date / Time No Known Allergies Allergy Unverified 05/19/22 01:37 Consultations 05/19/22 00:53 ED Decision to Admit Stat 05/19/22 06:34 Consult Cardiology Routine Consult Neurology Routine Ordered Studies 05/18/22 20:44 CT head/brain wo con Urgent 05/19/22 06:19 CT head/brain wo con Stat 05/19/22 10:49 CT angio neck with con Routine CTA head wo/w [CT angio head wo/w] Routine MR brain MS wo/w con Routine Laboratory Results WBC 9.34 K/ul (4.8-10.8) 05/22/22 07:37 RBC 4.51 M/uL (4.63-6.08) L 05/22/22 07:37 Hgb 13.4 g/dl (14.0-18.0) L 05/22/22 07:37 Hct 38.1 % (40.1-51.0) L 05/22/22 07:37 MCV 84.5 fL (80.0-100.0) 05/22/22 07:37 MCH 29.7 pg (25.0-34.0) 05/22/22 07:37 MCHC 35.2 g/dL (32.0-36.0) 05/22/22 07:37 RDW Std Deviation 37.5 fL (36.4-46.3) 05/22/22 07:37 RDW Coeff of Abraham 12.3 % (11.5-14.5) 05/22/22 07:37 Plt Count 185 K/uL (130-400) 05/22/22 07:37 MPV 9.6 fL (9.4-12.4) 05/22/22 07:37 Immature Gran % (Auto) 0.4 % 05/18/22 21:00 Neut % (Auto) 76.8 % 05/18/22 21:00 Lymph % (Auto) 13.1 % 05/18/22 21:00 Dawson % (Auto) 8.2 % 05/18/22 21:00 Eos % (Auto) 1.1 % 05/18/22 21:00 Baso % (Auto) 0.4 % 05/18/22 21:00 Neut # (Auto) 10.71 K/uL (1.4-6.5) H 05/18/22 21:00 Lymph # (Auto) 1.83 K/uL (1.2-3.4) 05/18/22 21:00 Dawson # (Auto) 1.14 K/uL (0.24-0.82) H 05/18/22 21:00 Eos # (Auto) 0.16 K/uL (0-0.50) 05/18/22 21:00 Baso # (Auto) 0.06 K/uL (0-0.2) 05/18/22 21:00 Immature Gran # (Auto) 0.06 K/uL (0.00-0.02) H 05/18/22 21:00 Sodium 138 mmol/L (136-145) 05/21/22 07:28 Potassium 3.7 mmol/L (3.5-5.1) 05/21/22 07:28 Chloride 106 mmol/L (98-107) 05/21/22 07:28 Carbon Dioxide 25 mmol/L (21-32) 05/21/22 07:28 Anion Gap 7 (3-11) 05/21/22 07:28 BUN 14 mg/dl (6-23) 05/21/22 07:28 Creatinine 0.84 mg/dl (0.6-1.4) 05/21/22 07:28 Est Cr Clr Drug Dosing 121.7 ml/min 05/21/22 07:28 Est GFR ( Amer) 105.0 ml/min 05/21/22 07:28 Est GFR (Non-Af Amer) 90.6 ml/min 05/21/22 07:28 BUN/Creatinine Ratio 16.7 (10-20) 05/21/22 07:28 Glucose 106 mg/dl (70-99(Fasting)) H 05/21/22 07:28 POC Glucose 93 mg/dl (70-99) 05/22/22 11:32 Estimat Average Glucose 143 mg/dl 05/19/22 06:40 Hemoglobin A1c 6.6 % (4.5-5.6) H 05/19/22 06:40 Lactate 1.8 mmol/L (0.4-2.0) 05/19/22 09:39 Calcium 8.3 mg/dl (8.5-10.1) L 05/21/22 07:28 Phosphorus 3.0 mg/dl (2.5-4.9) 05/21/22 07:28 Magnesium 1.9 mg/dl (1.7-2.4) 05/21/22 07:28 Total Bilirubin 0.4 mg/dl (0.2-1.0) 05/18/22 21:00 AST 19 U/L (13-39) 05/18/22 21:00 ALT 26 U/L (7-52) 05/18/22 21:00 Alkaline Phosphatase 71 U/L (34-104) 05/18/22 21:00 Troponin I High Sens 5.3 pg/ml (0-20) 05/19/22 06:40 Total Protein 8.1 gm/dl (6.0-8.3) 05/18/22 21:00 Albumin 4.4 gm/dl (3.4-5.0) 05/18/22 21:00 Globulin 3.7 gm/dl (2.5-4.0) 05/18/22 21:00 Albumin/Globulin Ratio 1.2 (0.9-2) 05/18/22 21:00 Procalcitonin < 0.05 ng/ml (0-0.5) 05/21/22 07:28 TSH 1.345 uIu/ml (0.300-4.500) 05/18/22 21:00 Urine Color Yellow 05/18/22 22:52 Urine Appearance Clear (Clear) 05/18/22 22:52 Urine pH 5.0 (4.5-7.5) 05/18/22 22:52 Ur Specific [place]et 1.021 (1.000-1.030) 05/18/22 22:52 Urine Protein 2+ (Negative) H 05/18/22 22:52 Urine Glucose (UA) Negative (Negative) 05/18/22 22:52 Urine Ketones Trace (Negative) H 05/18/22 22:52 Urine Blood Negative (Negative) 05/18/22 22:52 Urine Nitrite Negative (Negative) 05/18/22 22:52 Urine Bilirubin Negative (Negative) 05/18/22 22:52 Urine Urobilinogen Negative (Negative) 05/18/22 22:52 Ur Leukocyte Esterase Negative (Negative) 05/18/22 22:52 Urine WBC (Auto) 1-5 /hpf (0-5) 05/18/22 22:52 Urine RBC (Auto) 0-4 /hpf (0-4) 05/18/22 22:52 U Hyaline Cast (Auto) 0 /lpf (0-5) 05/18/22 22:52 U Epithel Cells (Auto) 10-20 /lpf (0-5) H 05/18/22 22:52 Urine Bacteria (Auto) Negative (Negative) 05/18/22 22:52 SARS-CoV-2, RNA, NAAT NEGATIVE (NEGATIVE) 05/18/22 20:[address] 05/19/22 06:19 CT head/brain wo con CLINICAL HISTORY: LOC Technique: Contiguous axial CT images of the head were acquired from the base of the skull to the vertex without intravenous contrast administration. Images were viewed in brain, subdural and bone windows. Automated dose lowering techniques and/or adjustment according to patient size were utilized for this exam. Comparison: Comparison is made to CT head 05/18/2022 Findings: The ventricles, basal cisterns, and cerebral sulci are normal. There is no acute intracranial hemorrhage or evidence of acute territorial infarction. Neither mass effect, shift of the midline structures, nor abnormal extra-axial fluid collections are shown. Imaged portions of the paranasal sinuses and mastoid air cells are clear. The orbits appear normal. There are no acute fractures of the calvaria or scalp swelling. Impression: No acute intracranial hemorrhage, no evidence of acute territorial infarction or other acute intracranial disease process. ACT 112: Negative or not required by law. Electronically signed by: Fernando Dave M.D. 05/19/2022 7:43 AM Chest X-Ray 05/19/22 06:20 XR chest 1V portable CLINICAL HISTORY: loc TECHNIQUE: Single frontal radiograph of the chest was obtained. Comparison: Comparison is made to chest radiograph 05/18/2022 FINDINGS: Enteric tube terminates below the diaphragm. The cardiomediastinal silhouette is normal. The lungs are clear. No evidence of pleural effusion or pneumothorax. IMPRESSION: No acute chest disease. ACT 112: Negative or not required by law. Electronically signed by: Fernando Dave M.D. 05/19/2022 7:07 AM Brain MRI 05/19/22 10:49 MR brain MS wo/w con CLINICAL HISTORY: Dizziness/LOC. History of MS. COMPARISON STUDY: Head CT and CTA of the head May 19, 2022. TECHNIQUE: Utilizing a 1.5 Shilpa magnet and dedicated coil, multiplanar, multiecho imaging of the brain was performed pre and postcontrast administration according to the multiple sclerosis protocol. Intravenous injection of 13.5 cc of Gadavist was uneventful. FINDINGS: There are no foci of restricted diffusion to suggest acute infarct. No acute intracranial hemorrhage, midline shift or mass effect is present. Brain volume is normal. The ventricular system is normal. Basal cisterns are patent. There are no extra axial collections. Flow-voids for the major intracranial vessels are present. There is no intracranial mass or pathologic enhancement. There are several small T2 hyperintense foci within the right aspect of the les. Mild periventricular T2 hyperintensity is noted. There are a few scattered T2 hyperintense foci within the deep white matter. There is no enhancement to suggest active demyelination. IMPRESSION: 1. No acute intracranial findings. 2. Scattered white matter T2 hyperintense foci and several small T2 hyperintense foci within the right aspect of the les. These could reflect previous sites of demyelination. Small vessel disease could appear similar. No evidence for active demyelination. ACT 112: Negative or not required by law. Electronically signed by: Leonardo Balderrama M.D. 05/19/2022 2:28 PM Head CTA 05/19/22 10:49 CT angio head wo/w: HISTORY: 66 years-old Male Dizziness/ LOC. Acute dizziness with loss of consciousness. COMPARISON: Head CT May 19, 2022. TECHNIQUE: CTA of the head was obtained both with and without the use of 115 cc Optiray 320. 3-D coronal and sagittal MIPS were obtained from the axial data set and were submitted for review. All measurements were obtained according to NASCET criteria. A dose lowering technique was used consistent with the principals of ELVIRA. FINDINGS: CT HEAD: No acute intracranial hemorrhage, midline shift, abnormal extra-axial collection, hydrocephalus, intracranial mass or acute territorial infarct. Mild white matter hypodensities suggestive of chronic microvascular ischemic disease. No acute calvarial fracture. The mastoid air cells and paranasal sinuses appear clear. Prior bilateral lens repair. CTA HEAD: Streak artifact from dental amalgam hardware. The imaged distal internal carotid arteries are patent. There is smooth luminal narrowing of approximately 50% involving the distal petrous and cavernous segments of the right ICA. The anterior and middle cerebral arteries appear patent. The right A1 segment is not well visualized and is likely developmentally diminutive. The imaged distal vertebral arteries are patent with high-grade stenosis noted involving the distal V4 segment of the left vertebral artery on image 53 series 5. Focal short segment area of approximately 60% stenosis involves the mid basilar artery, image 79 series 5. Mild to moderate multifocal luminal narrowing of the posterior cerebral arteries. The cerebral venous sinuses are patent. There is no abnormal intracranial enhancement identified. IMPRESSION: 1. No acute intracranial abnormality. 2. 50% luminal narrowing involves the cavernous segment right ICA, presumably secondary to atheromatous plaque. 3. High-grade stenosis of the distal V4 segment left vertebral artery with approximately 60% stenosis of the mid basilar artery. ACT 112: Negative or not required by law. The above report was generated using voice recognition software. It may contain grammatical, syntax or spelling errors. Dictated: 05/19/2022 1:34 PM Transcribed: 05/19/2022 1:58 PM Stephanie [id number] [facility] Electronically signed by: Siddharth Aguayo M.D. 05/19/2022 3:15 PM Neck CTA 05/19/22 10:49 CT ANGIOGRAM OF THE NECK CLINICAL HISTORY: Dizziness. Change in mental status COMPARISON STUDY: No priors. TECHNIQUE: Following the IV administration of 115 of Optiray 320, CT angiogram of the neck was performed from the aortic arch to the skull base. Images are reviewed in the axial, sagittal, and coronal planes. 3-D MIPS images are created and assessed. IV contrast was administered without complication. All measurements were calculated based on NASCET criteria. A dose lowering technique was utilized adhering to the principles of ALARA. The examination is degraded by motion artifact. FINDINGS: Thoracic aorta: Visualized portions of the thoracic aorta are normal in caliber. The aortic arch demonstrates standard 3-vessel anatomy. Right carotid arterial system: The right common carotid artery is widely patent, as are the right internal and external carotid arteries. Calcified plaque is noted in the carotid bulb. Left carotid arterial system: The left common carotid artery is widely patent, as are the left internal and external carotid arteries. Calcified plaque is noted in the carotid bulb. Vertebral arteries: The vertebral arteries are widely patent bilaterally and codominant. Subclavian arteries: Widely patent bilaterally. Intracranial vasculature: The visualized intracranial vessels at the skull base appear patent. There is a least moderate focal stenosis of the distal left vertebral artery below the basilar seen on image #341. Jugular veins: Widely patent bilaterally. Brain parenchyma: The visualized brain parenchyma the skull base is within normal limits. Lung apices: Partially visualized upper lobe lung parenchyma appears clear. Soft tissues: The visualized pharyngeal soft tissues are normal in appearance noting angiographic phase technique. The oropharyngeal airway appears widely patent. The thyroid gland is mildly enlarged and heterogeneous. The salivary glands are normal in appearance. No cervical lymphadenopathy is seen. Skeletal structures: The skeletal structures are osteopenic. The visualized calvarium at the skull base appears intact. The imaged cervical spine is maintained noting multilevel spondylosis. No lytic or blastic lesion is seen. Sinuses and mastoids: The visualized paranasal sinuses are clear. The mastoid air cells are well pneumatized. IMPRESSION: 1. Unremarkable CT angiogram of the neck. 2. 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 3. Additional findings as above. ACT 112: Negative or not required by law. Electronically signed by: Geo Pisano M.D. 05/19/2022 2:12 PM Hospital Course (1) Vertigo: (2) Nausea & vomiting: (3) Syncope: Present on admission with worsening dizziness and vomiting. Code purple this morning after he passed out while on the commode Possible related to acute meniere disease Syncope mostly due to vasovagal reaction CT head x2 showed no acute intracranial abnormality MRI head showed No acute intracranial findings. scattered white matter T2 hyper intense foci and several small T2 hyperintense foci within the right aspect of the les. No evidence for active demyelination. CTA head /neck showed unremarkable CT angiogram of the neck. 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 Neurology on board recommended meclizine for dizziness or if this does not help low-dose Valium ( 2-5 milligrams every 6-8 hours) as needed Continue zofran/reglan IV prn Clinically improved He was able to keep his meal down Syncope Syncope mostly due to vasovagal reaction CT head x2 showed no acute intracranial abnormality MRI head showed No acute intracranial findings. scattered white matter T2 hyperintense foci and several small T2 hyperintense foci within the right aspect of the les. No evidence for active demyelination. CTA head /neck showed unremarkable CT angiogram of the neck. 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 Echocardiogram demonstrates preserved LV systolic function without significant valvular pathology. No evidence of acute coronary syndrome. 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 Quiros that recommended plavix and aspirin for 3 weeks, then after 21 days to continue plavix alone Stable from neurological standpoint HTN BP elevated possible due to acute illness vs hospital setting Continue lisinopril 20 mg twice daily and amlodipine 5 mg daily continue monitor BP Hypoxia Questionable aspiration CXR showed The lungs are clear. No evidence of pleural effusion or pneumothorax. Elevated WBC and lactate on admission WBC trending down Currently on IV Unasyn Will discontinue antibiotic Saturated well on RA Elevated WBC Possible reactive Elevated lactate Blood cx no growth and procalcitonin normal Procalcitonin normal Consider to discontinue IV antibiotic Continue monitor CBC Diabetes Hba1c 6.6 Continue to hold metformin Continue insulin sliding scale Continue monitor BS Mild elevate anion gap Possible related to vomiting/dehydration Continue IVF Resolved DVT px on Lovenox CODE status Full code Disposition Plan to discharge home today Total Time Total Time Spent Total Time Spent (In Minutes): 35 minutes Discharge Plan Discharge Items Patient Disposition: Home - Self-Care Reason For Visit: VERTIGO Discharge Diagnosis: Syncope Nausea/Vomiting Vertebrobasilar artery stenosis Hypertension Hypoxia Elevated WBC Diabetes Mild elevate anion gap Activity: Resume your previous activity Non-emergency contact: Primary Care Provider and Neurologist Call non-emergency contact if: you have any medication questions and your symptoms worsen Follow-up/Referrals: [place] D[place], [Primary Care Provider] - (Date & Time 05/27/2022 1:40 PM Provider [place] D[place] DO [facility] ) Diet: Carb Consistent or DM2 Addtl Attending Provider Instructions: Follow up with your primary care provider 05/27/2022 @ 1:40 PM DO mAari [facility] Follow up with your neurology Continue Plavix and aspirin for 3 weeks, then after 3 weeks to continue plavix alone Continue monitor your blood pressure and bring your blood pressure log at your next follow up appointment with your provider Lisinopril increased to 20mg twice a day Amlodipine 5mg daily added for your blood pressure Avoid any other NSAIDs such as Motrin, aleve, naproxen, ibuprofen, advil,.... due to risk of bleeding Seek medical attention if your symptoms reoccur Pending Studies at Discharge: No Stand-Alone Forms: My [facility] [employer], Smoking Cessation Medications and DC Order Prescriptions: New amlodipine [Norvasc] 5 mg Tablet 5 mg PO QAM 30 Days Qty: 30 0RF aspirin 81 mg Tablet,Delayed Release (Dr/Ec) 81 mg PO QAM Qty: 30 0RF meclizine 25 mg Tablet 25 mg PO TID PRN (Reason: dizziness) Qty: 30 0RF clopidogrel 75 mg Tablet 75 mg PO QAM Qty: 30 0RF guaifenesin 200 mg tablet 200 mg PO TID PRN (Reason: congestion) Qty: 20 0RF Continued cyclobenzaprine 10 mg tablet 20 mg PO HS metformin 500 mg tablet 500 mg PO BID hydroxyzine HCl 50 mg tablet 50 mg PO BID phenytoin sodium extended 100 mg capsule 300 mg PO [facility]HS omeprazole 40 mg capsule,delayed release(DR/EC) 40 mg PO DAILY ipratropium bromide 42 mcg (0.06 %) spray,non-aerosol 1 spray intranasal DIRECTED buspirone 15 mg tablet 15 mg PO BID rosuvastatin 20 mg tablet 20 mg PO DAILY duloxetine 60 mg capsule,delayed release(DR/EC) 60 mg PO BID Changed lisinopril 20 mg tablet 20 mg PO BID 30 Days Qty: 60 0RF Discharge Orders: Discharge Order (Routine); Ordered 05/22/22 Ordered By: Genie Barry/Other Patient Handouts: Managing Type 2 Diabetes Admission Data Admit Date/Time: 05/20/22 22:53 Attending Provider: Genie Maxwell Admit Provider: Genie Maxwell Primary Care Provider: [place] Other Providers: Rambo Clarke ; Fabio Troy ; Tristin Sandy ; Federico [place] ; Jose Eduardo Jacobson ; Maxx Babcock ; Blanka Thomas ; Erendira Rubio ; Deidra Robin ; Jaciel Perez ; Royal Rojas ; Hong Quiros ; Lin Marrero ; Erendira Suggs ; Elio Lacy ; Erendira Altman ; Srikanth Arshad ; Yumiko Ochoa ; Sharad Antony ; Radha Becerril ; Arabella Steven ; Elio Alcantar ; Rambo Mayberry ; Erika Gonzalez
== END 2022-05-22 14:25 | disposition home or self-care (01) | DRG 69 ==
LOC: 3W 19:23 → ED 19:23 → SUATTDRO 05-19 03:46 → 3W 05-19 04:57 → 2S 05-19 06:41 → 2N 05-21 22:23

== ENCOUNTER 2025-01-10 05:59 | Inpatient (IN) ==
[2025-01-10] MEDS: PROCHLORPERAZINE 1 ML IV ONE ×2 (06:27→08:16)
[2025-01-10] MEDS: FAMOTIDINE 20MG IV PUSH 20 MG/5 ML SYR IV STA (06:28)
[2025-01-10] MEDS: SODIUM CHLORIDE 0.9% 1,000 ML IV ONE (06:28)
--- NOTE | 2025-01-10 06:31 | Emergency Department Note ---
Impression & Plan Nausea & vomiting, Adverse drug effect ED Provider Note ED Provider Note NAME: UNA FRANCE AGE:69 SEX: Male : 1955 ARRIVES VIA: Private vehicle INFORMANT: Patient ED PROVIDER(s): Louise Tineo DO CHIEF COMPLAINT: Nausea and vomiting HPI: This is a 69-year-old male who presents to the Emergency Department due to concern for persistent nausea and vomiting. Xnatpo-pf-lru states he had surgery at 8 AM Wednesday morning for a hand injury by orthopedics. She states upon coming home he began having nausea and vomiting. She states he did take a dose of pain medication when he came home however quickly vomited it back up. She states they did call back and were prescribed a nausea pill. She states that is not helping either. He is trying to sip water, eat ice chips, and some Gatorade however is still vomiting. She is now concerned for the vomiting but because he has not been able to take his routine medications for 3 days and is concerned due to his prior health history. He denies abdominal pain, worsening pain at the surgical site, fevers or chills. He states he does get sweaty and then cold the episodes of vomiting. He states he had prior similar reaction following his surgery to his knee and believes it was related to "the block". He states he had a nerve block in addition to the anesthesia. Xlhyra-ob-mrc also takes that when he arrived home after surgery he not only took the narcotic pain pill but also all of his medications for that they are at once. PAST MEDICAL HISTORY:See Below PAST SURGICAL HISTORY:See Below FAMILY HISTORY:See Below SOCIAL HISTORY:See Below HOME MEDICATIONS:See Below ALLERGIES:See Below VITALS:See Below PHYSICAL EXAMINATION: GENERAL: alert, teaful appearing, well nourished, no distress, non-toxic EYE EXAM: normal conjunctiva, PERRL and EOM's grossly intact OROPHARYNX: no exudate, no erythema, lips, buccal mucosa, and tongue normal and mucous membranes are moist NECK: supple, no nuchal rigidity, no adenopathy, non-tender LUNGS: Clear to auscultation. Normal chest wall mechanics, no w/r/r HEART: no murmurs, S1 normal and S2 normal ABDOMEN: abdomen soft, non-tender, normo-active bowel sounds, no masses, no rebound or guarding. BACK: Back is symmetrical on inspection and there is no deformity, no midline tenderness, no CVA tenderness. SKIN: no rashes, petechiae, orbruising UPPER EXTREMITIES: FROM LUE, nml pulses b/l. Right upper extremity in a cast to the forearm, wrist, and hand, normal cap refill, sensation intact distally, no other evidence of abnormality to the right upper extremity. LOWER EXTREMITIES: No pitting edema. FROM, nml pulses b/l. Well-healed vertical midline incision of the right knee, appearance of small prepatellar abrasion that appears to be healing and he states his old from last week. No evidence of trauma or deformity. NEURO EXAM: Normal sensorium, cranial nerves II-XII grossly intact, normal speech, no facial droop,nogross weakness of arms, no gross weakness of legs. Gross sensation intact. No ataxia. Vital Signs: reviewed and remarkable Differential Diagnosis: Medication ADR, anesthesia reaction, bowel obstruction, dehydration, DKA, DESIREE, electrolyte abnormality, colitis, constipation, ACS, anxiety, as well as others were considered MEDICAL DECISION MAKING: This is a 69-year-old male who presents to the emergency department due to concern for persistent nausea and vomiting. Patient has been staying with family since having surgery to the right upper extremity on Wednesday morning. He states since coming home after surgery has had persistent nausea and vomiting. Family thought it was a reaction to anesthesia or related to go off his medications. Patient was given a prescription for narcotic which she took as soon as he got home here which could have also contributed. Patient was afebrile and hemodynamically stable on arrival here. Labs are drawn and sent, IV established, EKG and x-rays performed at bedside and interpreted by me and the patient was monitored on telemetry. Patient started on IV fluids and given IV Compazine for nausea as well as IV Pepcid and IV protonix. After several medications patient began to report slight improvement. He was given IV Tylenol additionally for pain. Patient was able to start tolerating ice chips and then some sips of fluids. After a trial of crackers and patient ambulating to the bathroom he then had recurrent vomiting and reported coming in for abdominal pain. Patient's prior labs and imaging had been reassuring and he was reporting improvement. Due to concern for persistent symptoms despite several medications on a trial here as well as complicated past medical history, case was discussed with the hospitalist team for additional evaluation and management. I do not suspect occult cardiac etiology of his nausea vomiting or acute vascular emergency. I do not suspect occult infection at this time. Consultation(s): 1330: Discussed with Kelsey Pop hospitalist team, for additional evaluation and management. ER Treatment Provided: See below Diagnostics Interpreted By Me: -ECG: Normal sinus at 75, first-degree AV block, normal axis, normal intervals, no acute ST/T wave changes -Cardiac Monitoring: An order was placed for continuous cardiac monitoring. The monitor shows a rate of 78 with normal sinus rhythm. -Laboratory studies: As stated above and show below. -Imaging studies: cxr/kub: no sbo, no fa, no pna Triage Nursing Note Reviewed Prior/Outside Records Reviewed Past Med/Surg History Problem List (Updated 01/10/25 @ 16:58 by Louise Tineo DO) Adverse drug effect (Acute) Nausea & vomiting (Acute) Medical History Vertebrobasilar artery stenosis Hypertension Syncope Vasovagal episode Vertigo Hx of multiple sclerosis Diabetes High blood pressure Surgical History H/O knee surgery Social History Smoking Status: Former smoker Tobacco Type: Cigarettes Second Hand Exposure: No; Do You Dip or Chew Tobacco: No; Hx Alcohol Use: Yes Alcohol type: beer Hx Substance Use: No Preferred Language: Bulgarian Communication Ability: Effective Manager Surgical Required: No Beliefs That Will Affect Care: None Current Living Situation: Alone Feels Safe at Home: Yes Assistive Devices: None Allergies Allergies Allergy/AdvReac Type Severity Reaction Status Date / Time No Known Allergies Allergy Verified 05/26/22 19:57 Home Meds Home Medications Medication Instructions Recorded Confirmed buspirone 15 mg tablet 30 mg PO BID 05/19/22 01/10/25 cyclobenzaprine 10 mg tablet 10 mg PO BID 05/19/22 01/10/25 hydroxyzine HCl 50 mg tablet 100 mg PO BID PRN Anxiety 05/19/22 01/10/25 metformin 500 mg tablet 500 mg PO BID 05/19/22 01/10/25 omeprazole 40 mg capsule,delayed 40 mg PO BID 05/19/22 01/10/25 release phenytoin sodium extended 100 mg 300 mg PO AMHS 05/19/22 01/10/25 capsule albuterol sulfate 90 mcg/actuation 2 puff inhalation Q6H PRN 01/10/25 01/10/25 aerosol inhaler SOB/wheezing amlodipine 5 mg tablet 5 mg PO DAILY 01/10/25 01/10/25 aripiprazole 10 mg tablet 10 mg PO DAILY 01/10/25 01/10/25 desvenlafaxine succinate 100 mg 100 mg PO DAILY 01/10/25 01/10/25 tablet,extended release 24 hr hydrocodone 5 mg-acetaminophen 325 1 tab PO UD PRN Pain 01/10/25 01/10/25 mg tablet lisinopril 40 mg tablet 40 mg PO DAILY 01/10/25 01/10/25 meclizine 25 mg tablet 25 mg PO TID PRN dizziness 01/10/25 01/10/25 ondansetron 4 mg disintegrating 4 mg PO UD PRN n/v 01/10/25 01/10/25 tablet rosuvastatin 40 mg tablet 40 mg PO DAILY 01/10/25 01/10/25 semaglutide 2 mg/dose (8 mg/3 mL) 2 mg subcut UD 01/10/25 01/10/25 subcutaneous pen injector (Ozempic) Previous Rx's Medication Instructions Recorded aspirin 81 mg tablet,delayed 81 mg PO QAM #30 tabs 05/22/22 release guaifenesin 200 mg tablet 200 mg PO TID PRN congestion #20 05/22/22 tabs Results & Data (ED) Vital Signs Vital Signs - 24 hr 01/10/25 06:05 01/10/25 06:28 01/10/25 07:12 Temperature 36.8 C Temperature Source Temporal Artery Scan Pulse Rate 81 76 82 Pulse Rate from SpO2 Sensor 80 Respiratory Rate 16 17 Respiratory Effort / Characteristics Non-Labored Spontaneous Respiratory Depth Normal Respiratory Pattern Regular Blood Pressure 146/72 H Blood Pressure Mean 96 Pulse Oximetry 99 100 Oxygen Delivery Method Room Air Sepsis Recent Fever Within 48 Hours No Sepsis New/Unexplained Change in Mental Status N/A Sepsis Action Taken by Nursing No Action Required 01/10/25 07:30 01/10/25 07:30 01/10/25 07:39 Temperature Temperature Source Pulse Rate 78 75 Pulse Rate from SpO2 Sensor 78 74 Respiratory Rate 19 16 Respiratory Effort / Characteristics Respiratory Depth Respiratory Pattern Blood Pressure 141/70 H Blood Pressure Mean 87 Pulse Oximetry 98 91 Oxygen Delivery Method Room Air Room Air Sepsis Recent Fever Within 48 Hours Sepsis New/Unexplained Change in Mental Status Sepsis Action Taken by Nursing 01/10/25 08:00 01/10/25 08:03 01/10/25 08:39 Temperature Temperature Source Pulse Rate 78 77 Pulse Rate from SpO2 Sensor 76 77 Respiratory Rate 16 17 Respiratory Effort / Characteristics Respiratory Depth Respiratory Pattern Blood Pressure 144/85 H Blood Pressure Mean 119 Pulse Oximetry 99 94 Oxygen Delivery Method Room Air Room Air Sepsis Recent Fever Within 48 Hours Sepsis New/Unexplained Change in Mental Status Sepsis Action Taken by Nursing 01/10/25 09:09 01/10/25 09:30 01/10/25 09:57 Temperature Temperature Source Pulse Rate 75 74 75 Pulse Rate from SpO2 Sensor 75 75 76 Respiratory Rate 16 17 31 H Respiratory Effort / Characteristics Respiratory Depth Respiratory Pattern Blood Pressure Blood Pressure Mean Pulse Oximetry 97 97 98 Oxygen Delivery Method Room Air Room Air Room Air Sepsis Recent Fever Within 48 Hours Sepsis New/Unexplained Change in Mental Status Sepsis Action Taken by Nursing 01/10/25 10:30 01/10/25 10:33 01/10/25 10:37 Temperature Temperature Source Pulse Rate 78 79 Pulse Rate from SpO2 Sensor 78 Respiratory Rate 19 Respiratory Effort / Characteristics Respiratory Depth Respiratory Pattern Blood Pressure 143/74 H Blood Pressure Mean 109 Pulse Oximetry 94 Oxygen Delivery Method Room Air Sepsis Recent Fever Within 48 Hours Sepsis New/Unexplained Change in Mental Status Sepsis Action Taken by Nursing 01/10/25 10:57 01/10/25 11:01 01/10/25 11:06 Temperature Temperature Source Pulse Rate 78 78 Pulse Rate from SpO2 Sensor 79 78 Respiratory Rate 17 16 Respiratory Effort / Characteristics Respiratory Depth Respiratory Pattern Blood Pressure 127/61 Blood Pressure Mean 85 Pulse Oximetry 94 97 Oxygen Delivery Method Room Air Room Air Sepsis Recent Fever Within 48 Hours Sepsis New/Unexplained Change in Mental Status Sepsis Action Taken by Nursing 01/10/25 11:42 01/10/25 12:00 01/10/25 12:15 Temperature Temperature Source Pulse Rate 71 73 Pulse Rate from SpO2 Sensor 72 Respiratory Rate 16 27 H Respiratory Effort / Characteristics Respiratory Depth Respiratory Pattern Blood Pressure 139/73 Blood Pressure Mean 94 Pulse Oximetry 94 Oxygen Delivery Method Room Air Sepsis Recent Fever Within 48 Hours Sepsis New/Unexplained Change in Mental Status Sepsis Action Taken by Nursing 01/10/25 12:30 01/10/25 12:31 01/10/25 13:00 Temperature Temperature Source Pulse Rate 78 Pulse Rate from SpO2 Sensor Respiratory Rate 22 Respiratory Effort / Characteristics Respiratory Depth Respiratory Pattern Blood Pressure 157/76 H 151/75 H Blood Pressure Mean 87 112 Pulse Oximetry Oxygen Delivery Method Sepsis Recent Fever Within 48 Hours Sepsis New/Unexplained Change in Mental Status Sepsis Action Taken by Nursing 01/10/25 13:00 01/10/25 13:30 01/10/25 14:44 Temperature Temperature Source Pulse Rate 76 74 81 Pulse Rate from SpO2 Sensor 75 Respiratory Rate 17 17 Respiratory Effort / Characteristics Respiratory Depth Respiratory Pattern Blood Pressure Blood Pressure Mean Pulse Oximetry 96 Oxygen Delivery Method Room Air Sepsis Recent Fever Within 48 Hours Sepsis New/Unexplained Change in Mental Status Sepsis Action Taken by Nursing 01/10/25 16:18 01/10/25 16:30 Temperature Temperature Source Pulse Rate 77 76 Pulse Rate from SpO2 Sensor 77 76 Respiratory Rate 15 21 Respiratory Effort / Characteristics Respiratory Depth Respiratory Pattern Blood Pressure 167/89 H 173/103 H Blood Pressure Mean 115 126 Pulse Oximetry 98 98 Oxygen Delivery Method Sepsis Recent Fever Within 48 Hours Sepsis New/Unexplained Change in Mental Status Sepsis Action Taken by Nursing Laboratory Data 01/10/25 06:24 01/10/25 06:24 Lab Results 01/10/25 01/10/25 Range/Units 06:24 08:26 WBC 11.52 H (4.8-10.8) K/ul RBC 4.47 L (4.70-6.10) M/uL Hgb 13.0 L (14.0-18.0) g/dl Hct 37.4 L (42.0-52.0) % MCV 83.7 (80.0-100.0) fL MCH 29.1 (25.0-34.0) pg MCHC 34.8 (32.0-36.0) g/dL RDW Std Deviation 38.3 (36.4-46.3) fL RDW Coeff of Abraham 12.5 (11.5-14.5) % Plt Count 269 (130-400) K/uL MPV 9.0 L (9.4-12.4) fL Immature Gran % (Auto) 0.4 % Neut % (Auto) 74.2 % Lymph % (Auto) 12.1 % [place] % (Auto) 12.8 % Eos % (Auto) 0.2 % Baso % (Auto) 0.3 % Neut # (Auto) 8.55 H (1.40-6.50) K/uL Lymph # (Auto) 1.39 (1.20-3.40) K/uL [place] # (Auto) 1.48 H (0.11-0.59) K/uL Eos # (Auto) 0.02 (0.00-0.50) K/uL Baso # (Auto) 0.03 (0.00-0.20) K/uL Immature Gran # (Auto) 0.05 (0.01-0.20) K/uL PT 11.2 (9.0-12.0) Seconds INR 1.0 (0.9-1.1) Sodium 137 (136-145) mmol/L Potassium 4.0 (3.5-5.1) mmol/L Chloride 101 (98-107) mmol/L Carbon Dioxide 24 (21-32) mmol/L Anion Gap 12 H (3-11) BUN 14 (6-23) mg/dl Creatinine 0.82 (0.6-1.4) mg/dl Est Cr Clr Drug Dosing Not Reportable eGFR 94.50 BUN/Creatinine Ratio 17.1 (10-20) Glucose 113 H (70-99(Fasting)) mg/dl Calcium 9.7 (8.6-10.3) mg/dl Magnesium 1.8 (1.7-2.4) mg/dl Total Bilirubin 0.6 (0.2-1.0) mg/dl AST 14 (13-39) U/L ALT 12 (7-52) U/L Alkaline Phosphatase 94 (34-104) U/L Troponin I High Sens 9.1 10.3 (0-20) pg/ml Total Protein 7.8 (6.0-8.3) gm/dl Albumin 4.1 (3.4-5.0) gm/dl Globulin 3.7 (2.5-4.0) gm/dl Albumin/Globulin Ratio 1.1 (0.9-2) Lipase 38 (11-82) U/L Administered Medications Sodium Chloride (Nss) 1,000 mls @ 250 mls/hr IV .Q4H KEN Stop: 01/13/25 07:44 Last Admin: 01/10/25 13:38 Dose: 250 mls/hr Documented By: Infusion: 01/10/25 11:54 Dose: Infused Documented By: Admin: 01/10/25 07:49 Dose: 250 mls/hr Documented By: SYLVIE Discontinued Medications Bisacodyl (Bisacodyl 10 Mg Supp) 10 mg NM NOW STA Stop: 01/10/25 15:07 Last Admin: 01/10/25 16:22 Dose: Not Given Documented By: FAREED Buspirone HCl (Buspirone 15 Mg Tab) 15 mg PO NOW STA Stop: 01/10/25 12:42 Last Admin: 01/10/25 13:19 Dose: Not Given Documented By: SYLVIE Clopidogrel Bisulfate (Clopidogrel Bisulfate 75 Mg Tab) 75 mg PO NOW ONE Stop: 01/10/25 12:42 Last Admin: 01/10/25 13:19 Dose: Not Given Documented By: SYLVIE Sodium Chloride (Nss) 1,000 mls @ 999 mls/hr IV .Q1H1M ONE Stop: 01/10/25 07:22 Last Infusion: 01/10/25 07:49 Dose: Infused Documented By: Admin: 01/10/25 06:28 Dose: 999 mls/hr Documented By: ADDIE Famotidine (Pepcid 20mg Iv Push) 20 mg in 5 mls @ 2.5 mls/min IV NOW STA Stop: 01/10/25 06:23 Last Admin: 01/10/25 06:28 Dose: 2.5 mls/min Documented By: ADDIE Prochlorperazine (Compazine) 1 mls @ 1 mls/min IV ONE ONE Stop: 01/10/25 06:23 Last Admin: 01/10/25 06:27 Dose: 1 mls/min Documented By: ADDIE Prochlorperazine (Compazine) 1 mls @ 1 mls/min IV ONE ONE Stop: 01/10/25 08:03 Last Admin: 01/10/25 08:16 Dose: 1 mls/min Documented By: SYLVIE Pantoprazole Sodium (Protonix) 40 mg in 10 mls @ 5 mls/min IV NOW ONE Stop: 01/10/25 08:03 Last Admin: 01/10/25 08:16 Dose: 5 mls/min Documented By: SYLVIE Ioversol (Optiray 320 100ml) 94 ml IV ONCE ONE Stop: 01/10/25 14:29 Last Admin: 01/10/25 14:29 Dose: 94 ml Documented By: IRINA Lisinopril (Lisinopril 20 Mg Tab) 20 mg PO NOW STA Stop: 01/10/25 12:42 Last Admin: 01/10/25 13:19 Dose: Not Given Documented By: SYLVIE Metoclopramide HCl (Metoclopramide Hcl Inj 5 Mg/Ml 2 Ml Vial) 5 mg IV ONE ONE Stop: 01/10/25 13:14 Last Admin: 01/10/25 13:37 Dose: 5 mg Documented By: SYLVIE Imaging Data Radiologist's Impression: Chest/Abdomen X-ray 01/10/25 06:22 EXAM: XR abdomen 2V w PA chest CLINICAL HISTORY: Nausea/vomiting, s/p surgery. TECHNIQUE: X-ray images of the chest, PA, and abdomen were obtained in Anteroposterior (AP) projection. COMPARISON: Radiographs dated 05/19/2022 and 05/18/2022 were reviewed. FINDINGS: ABDOMEN: Gas Pattern: Fecal loaded large bowel loops. Gas pattern within the abdomen is normal. No evidence of bowel obstruction or distention. Soft Tissues: Multiple calcified densities are noted within the pelvis, which may suggest phleboliths. Soft tissues of the abdomen appear normal without evidence of masses or calcifications. Liver, spleen, and kidneys are of normal size and position. CHEST: Pulmonary Parenchyma: Technically rotated the patient. Mild right infrahilar prominent reticulations/ bronchovascular opacities, likely secondary to rotation of the patient. Lungs are clear bilaterally. No evidence of consolidation, collapse, or focal opacities. No pulmonary nodules identified. No evidence of pleural effusion or pleural thickening. Heart and Mediastinum: The cardiothoracic ratio cannot be commented upon due to the AP projection. Curvilinear calcification seen in the aortic arch, unchanged. No mediastinal widening or masses. No hilar or mediastinal lymphadenopathy. Bony Thorax: Suggestion of reduced vertebral height of T11 and L2 vertebral bodies, likely osteoporotic. Moderate degenerative osteoarthritic changes. IMPRESSION: 1. No acute abnormalities identified. 2. No gross effusion or consolidation on either side. Electronically signed by Eliot Horowitz 01-10-2025 08:08 AM Abdomen/Pelvis CT 01/10/25 13:[address] WITH IV CONTRAST CT DOSE: 1521.46 mGy.cm HISTORY: Acute nausea with vomiting intractable vomiting TECHNIQUE: Multiaxial CT images of the abdomen and pelvis were performed following the IV administration of 94 cc of Optiray, A dose lowering technique was utilized adhering to the principles of ALARA. COMPARISON STUDY: None. FINDINGS: Coronary artery calcifications. The lung bases appear clear. No pneumatosis or pneumoperitoneum. Unremarkable spleen, pancreas, gallbladder and adrenal glands. Hepatic steatosis. Patency of the hepatic and portal veins. Mild nonspecific bilateral perinephric stranding. Subcentimeter hypodensities of the kidneys are too small to characterize. 5 mm nonobstructing calculus in the interpolar left kidney. Prostamegaly. Urinary bladder wall thickening likely represents chronic outlet obstruction. Atherosclerosis of the aorta without aneurysm. Subcentimeter iliac chain lymph nodes measure up to 8 mm, nonspecific. Additional subcentimeter lymph nodes adjacent to the distal esophagus. Colonic diverticulosis without acute diverticulitis. Mild to moderate colonic fecal retention. The appendix measures 7 mm transversely and appears to be noninflamed. Tiny fat filled umbilical hernia. Unremarkable soft tissues. No acute fracture. IMPRESSION: 1. No bowel obstruction or bowel wall thickening. 2. The appendix measures in the upper limits of normal however appears to be noninflamed. 3. Nonobstructing left renal calculus. 4. Colonic diverticulosis without acute diverticulitis. ACT 112: Negative or not required by law. The above report was generated using voice recognition software. It may contain grammatical, syntax or spelling errors. Electronically signed by: Siddharth Aguayo M.D. 01/10/2025 3:00 PM Discharge Plan Visit Data Chief Complaint: Vomiting Stated Complaint: POST OP SURG, VOMIT ED Provider: Louise Tineo Discharge Problem: Nausea & vomiting, Adverse drug effect Patient Disposition: Being Evaluated by Hospitalist Condition: Fair Forms Stand Alone Forms: My [facility] [employer] Prescriptions Prescriptions: No Action cyclobenzaprine 10 mg tablet 10 mg PO BID metformin 500 mg tablet 500 mg PO BID hydroxyzine HCl 50 mg tablet 100 mg PO BID PRN (Reason: Anxiety) phenytoin sodium extended 100 mg capsule 300 mg PO AMHS omeprazole 40 mg capsule,delayed release(DR/EC) 40 mg PO BID buspirone 15 mg tablet 30 mg PO BID aspirin 81 mg Tablet,Delayed Release (Dr/Ec) 81 mg PO QAM Qty: 30 0RF Patient Comments: 01/10- otc unable to verify guaifenesin 200 mg tablet 200 mg PO TID PRN (Reason: congestion) Qty: 20 0RF Patient Comments: 01/10- otc unable to verify hydrocodone-acetaminophen 5-325 mg tablet 1 tab PO UD PRN (Reason: Pain) Rx Instructions: Rx 01/08/25 amlodipine 5 mg tablet 5 mg PO DAILY ondansetron 4 mg tablet,disintegrating 4 mg PO UD PRN (Reason: n/v) aripiprazole 10 mg tablet 10 mg PO DAILY Ozempic 2 mg/dose (8 mg/3 mL) pen injector 2 mg SUBCUT UD desvenlafaxine succinate 100 mg tablet extended release 24 hr 100 mg PO DAILY meclizine 25 mg tablet 25 mg PO TID PRN (Reason: dizziness) Patient Comments: 01/10- otc/no fill history for 25mg dose. unable to verify lisinopril 40 mg tablet 40 mg PO DAILY rosuvastatin 40 mg tablet 40 mg PO DAILY albuterol sulfate 90 mcg/actuation Hfa Aerosol Inhaler 2 puff INHALATION Q6H PRN (Reason: SOB/wheezing) Referrals Referrals: [place] D[place] DO [Primary Care Provider] -
[2025-01-10 06:43] LABS: Hematocrit (blood only) 37.4 % (42.0-52.0); Hemoglobin 13.0 g/dl (14.0-18.0); Immature Granulocytes # (auto) 0.05 K/uL (0.01-0.20); Immature Granulocytes % (auto) 0.4 %; Mean Corpuscular Hemoglobin 29.1 pg (25.0-34.0); Mean Corpuscular Volume 83.7 fL (80.0-100.0); Platelet Count 269 K/uL (130-400); RDW Standard Deviation 38.3 fL (36.4-46.3); Red Blood Count 4.47 M/uL (4.70-6.10); White Blood Count 11.52 K/ul (4.8-10.8)
[2025-01-10 07:04] LABS: Alanine Aminotransferase 12 U/L (7-52); Albumin Globulin Ratio 1.1 (0.9-2); Alkaline Phosphatase 94 U/L (34-104); Anion Gap 12 (3-11); Bilirubin,Total 0.6 mg/dl (0.2-1.0); Blood Urea Nitrogen 14 mg/dl (6-23); Calcium 9.7 mg/dl (8.6-10.3); Carbon Dioxide 24 mmol/L (21-32); Chloride 101 mmol/L (98-107); Globulin 3.7 gm/dl (2.5-4.0); Glucose 113 mg/dl (70-99(Fasting)); Lipase 38 U/L (11-82); Magnesium 1.8 mg/dl (1.7-2.4); Potassium 4.0 mmol/L (3.5-5.1); Sodium 137 mmol/L (136-145); Total Protein 7.8 gm/dl (6.0-8.3)
[2025-01-10 07:16] LABS: INR 1.0 (0.9-1.1); Prothrombin Time 11.2 Seconds (9.0-12.0)
[2025-01-10] MEDS: SODIUM CHLORIDE 0.9% 1,000 ML IV SCH (07:49)
--- NOTE | 2025-01-10 08:09 | XRay Report ---
EXAM: XR abdomen 2V w PA chest CLINICAL HISTORY: Nausea/vomiting, s/p surgery. TECHNIQUE: X-ray images of the chest, PA, and abdomen were obtained in Anteroposterior (AP) projection. COMPARISON: Radiographs dated 05/19/2022 and 05/18/2022 were reviewed. FINDINGS: ABDOMEN: Gas Pattern: Fecal loaded large bowel loops. Gas pattern within the abdomen is normal. No evidence of bowel obstruction or distention. Soft Tissues: Multiple calcified densities are noted within the pelvis, which may suggest phleboliths. Soft tissues of the abdomen appear normal without evidence of masses or calcifications. Liver, spleen, and kidneys are of normal size and position. CHEST: Pulmonary Parenchyma: Technically rotated the patient. Mild right infrahilar prominent reticulations/ bronchovascular opacities, likely secondary to rotation of the patient. Lungs are clear bilaterally. No evidence of consolidation, collapse, or focal opacities. No pulmonary nodules identified. No evidence of pleural effusion or pleural thickening. Heart and Mediastinum: The cardiothoracic ratio cannot be commented upon due to the AP projection. Curvilinear calcification seen in the aortic arch, unchanged. No mediastinal widening or masses. No hilar or mediastinal lymphadenopathy. Bony Thorax: Suggestion of reduced vertebral height of T11 and L2 vertebral bodies, likely osteoporotic. Moderate degenerative osteoarthritic changes. IMPRESSION: 1. No acute abnormalities identified. 2. No gross effusion or consolidation on either side. Electronically signed by Eliot Horowitz 01-10-2025 08:08 AM
[2025-01-10] MEDS: PANTOprazole 40 MG/10 ML SYR IV ONE (08:16)
[2025-01-10] MEDS: CLOPIDOGREL BISULFATE 75 MG TAB PO ONE (13:19)
[2025-01-10] MEDS: busPIRone 15 MG TAB PO STA (13:19)
[2025-01-10] MEDS: METOCLOPRAMIDE HCL INJ 5 MG/ML 2 ML VIAL IV ONE (13:37)
--- NOTE | 2025-01-10 14:00 | History & Physical Report ---
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 Patient states upon returning home from procedure he took his Ozempic. He then took a hydrocodone and his home medications and reports vomited. Vomiting with attempted oral intake since. No BM 3 days. In ER afebrile, vitals stable. WBC: 11.5, lipase and LFTs WNL In ER given 1L NSS, IV Pepcid, IV Compazine, IV Protonix Initially patient had reported improvement and was sipping on fluids and retaining. Was given some of home medications. Patient attempted eating crackers which was then followed by emesis CT Abd/pelvis: No bowel obstruction or bowel wall thickening. The appendix measures in the upper limits of normal however appears to be noninflamed. Nonobstructing left renal calculus. Colonic diverticulosis without acute diverticulitis. Possible secondary to anesthesia, narcotics and Ozempic NPO except meds for now. When able will plan to start clear liquids Gentle IVF Give bisacodyl NC now. Plan for mag citrate followed by Miralax twice daily CBC, BMP in am #Recent Right Hand procedure On 01/08/25 had outpatient arthroplasty right intercarpal/carpometacarpal joints by Dr Gabriel for trapeziometacarpal arthritis Right wrist at [facility] Right hand/wrist in splint Has follow up appointment ortho next week (3) Diabetes mellitus, type II: Plan: A1c: 6.2 on 10/20/24 Random bs Monitor BSG Will hold on insulin sliding scale currently as NPO Hold home metformin, Ozempic (4) Hypertension: Plan: Continue amlodipine, lisinopril (5) HLD (hyperlipidemia): Plan: Continue rosuvastatin (6) Muscle cramping: Plan: History peripheral neuropathy H/O unknown cramping syndrome (per Neuroimmunology, 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 and less likely Stiff Person Syndrome with history and imaging not consistent with MS) On cyclobenzaprine and phenytoin Follows with neurology (7) History of CVA (cerebrovascular accident): Plan: History right pontine infarct with left sided weakness continue aspirin, rosuvastatin (8) Depression with anxiety: Plan: Continue aripiprazole, buspirone, desvenlafaxine (9) COPD (chronic obstructive pulmonary disease): Plan: No sign acute exacerbation Continue albuterol prn DVT Prophylaxis Lovenox SQ Admit med tele DNR/DNI as per discussion with pt Follows with Dr West Darden for routine care Pt was seen and care coordinated with Dr Ramírez. See addendum I spent a total of 60 minutes reviewing notes, outpatient records, labs, medication, coordinating, documenting and providing care for this patient excluding time spent in the performance of separately billed services and excluding time spent by another provider/QHP. 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 On 01/08/25 had outpatient arthroplasty right intercarpal/carpometacarpal joints by Dr Gabriel for trapeziometacarpal arthritis Right wrist at [facility]. Patient states upon returning home from procedure he took his Ozempic. He then took a hydrocodone and his home medications and reports vomited. Patient states since has had vomiting after any attempted drinking or eating and had been unable to take medications. Patient reports has sweats and chills prior to vomiting episodes. States having lower abdominal pain started after vomiting and has been consistent but seems to ease after vomiting. Patient reports vomit is yellow and brown in coloration. Denies bright red blood or coffee ground emesis. Denies history of SBO. States has tolerated Ozempic well except his very first d ose had vomiting and subsequent doses without any symptoms. Patient reports history N/V after anesthesia in past that lasted several days. He states last BM was 3 days ago. Today he feels like he is passing flatus. He reports his right hand and wrist are pain free. Reports has follow up appointment next week with ortho for recheck. Reports unsteady gait at baseline and uses a cane. States last fall 4 days ago in the yard in which he reports he lost his balance and fell. Has abrasions to legs but denies other injury. States has intermittent cough, sometimes productive but unsure of color and denies any increased cough or sputum production. Denies fever dizziness, syncope, vision changes, neck pain, CP, SOB, orthopnea, palpitations, sore throat, otalgia, rhinorrhea, paresthesias, increased weakness, extremity edema, rashes, urinary symptoms. Allergies Allergy/AdvReac Type Severity Reaction Status Date / Time No Known Allergies Allergy Verified 05/26/22 19:57 Home Medications Medication Instructions Recorded Confirmed Type buspirone 15 mg tablet 30 mg PO BID 05/19/22 01/10/25 History cyclobenzaprine 10 mg tablet 10 mg PO BID 05/19/22 01/10/25 History hydroxyzine HCl 50 mg tablet 100 mg PO BID PRN Anxiety 05/19/22 01/10/25 History metformin 500 mg tablet 500 mg PO BID 05/19/22 01/10/25 History omeprazole 40 mg capsule,delayed 40 mg PO BID 05/19/22 01/10/25 History release phenytoin sodium extended 100 mg 300 mg PO AMHS 05/19/22 01/10/25 History capsule aspirin 81 mg tablet,delayed 81 mg PO QAM #30 tabs 05/22/22 01/10/25 Rx release guaifenesin 200 mg tablet 200 mg PO TID PRN congestion #20 05/22/22 01/10/25 Rx tabs albuterol sulfate 90 mcg/actuation 2 puff inhalation Q6H PRN 01/10/25 01/10/25 History aerosol inhaler SOB/wheezing amlodipine 5 mg tablet 5 mg PO DAILY 01/10/25 01/10/25 History aripiprazole 10 mg tablet 10 mg PO DAILY 01/10/25 01/10/25 History desvenlafaxine succinate 100 mg 100 mg PO DAILY 01/10/25 01/10/25 History tablet,extended release 24 hr hydrocodone 5 mg-acetaminophen 325 1 tab PO UD PRN Pain 01/10/25 01/10/25 History mg tablet lisinopril 40 mg tablet 40 mg PO DAILY 01/10/25 01/10/25 History meclizine 25 mg tablet 25 mg PO TID PRN dizziness 01/10/25 01/10/25 History ondansetron 4 mg disintegrating 4 mg PO UD PRN n/v 01/10/25 01/10/25 History tablet rosuvastatin 40 mg tablet 40 mg PO DAILY 01/10/25 01/10/25 History semaglutide 2 mg/dose (8 mg/3 mL) 2 mg subcut UD 01/10/25 01/10/25 History subcutaneous pen injector (Ozempic) Past Med/Surg History Problem List Constipation Adverse drug effect (Acute) Nausea & vomiting (Acute) Medical History Muscle cramping Depression with anxiety COPD (chronic obstructive pulmonary disease) History of CVA (cerebrovascular accident) HLD (hyperlipidemia) Diabetes mellitus, type II Vertebrobasilar artery stenosis Hypertension Syncope Vasovagal episode Vertigo Hx of multiple sclerosis Diabetes High blood pressure Surgical History H/O knee surgery Social History Smoking Status: Former smoker Tobacco Type: Cigarettes Second Hand Exposure: No; Do You Dip or Chew Tobacco: No; Hx Alcohol Use: Yes Alcohol type: beer Hx Substance Use: No Preferred Language: Greenlandic Communication Ability: Effective Paper Final Inspector Required: No Beliefs That Will Affect Care: None Current Living Situation: Alone Feels Safe at Home: Yes Assistive Devices: None Review of Systems Review of Systems: All systems reviewed & are unremarkable except as noted in HPI & below Physical Exam Physical Exam: General: no distress, WDWN elderly male Head: normocephalic, atraumatic Eyes: conjunctiva non-injected, anicteric ENT: normal inspection external ears, nose, mucous membranes dry Neck: supple, trachea midline Lungs: clear, no respiratory distress, no wheezing/rhonchi/rales CV: RRR, no murmur, no pretibial edema Abd: normal BS, soft,+tenderness to palpation RLQ and LLQ without rebound or guarding Ext: no cyanosis, no calf tenderness; RUE: +splint on right wrist and hand. Able to actively move fingers and sensation to light touch of fingers intact, brisk capillary refill Neuro: A&O x 3, +left sided weakness (chronic), normal affect Skin: warm, dry Results & Data Results & Data Vital Signs (Past 12 Hours) Vital Signs Temp Pulse Resp BP Pulse Ox O2 Del Method 01/10/25 13:30 74 17 01/10/25 13:00 76 17 96 Room Air 01/10/25 13:00 151/75 H 01/10/25 12:31 157/76 H 01/10/25 12:30 78 22 01/10/25 12:15 73 27 H 01/10/25 12:00 139/73 01/10/25 11:42 71 16 94 Room Air 01/10/25 11:06 78 16 97 Room Air 01/10/25 11:01 127/61 01/10/25 10:57 78 17 94 Room Air 01/10/25 10:37 79 01/10/25 10:33 78 19 94 Room Air 01/10/25 10:30 143/74 H 01/10/25 09:57 75 31 H 98 Room Air 01/10/25 09:30 74 17 97 Room Air 01/10/25 09:09 75 16 97 Room Air 01/10/25 08:39 77 17 94 Room Air 01/10/25 08:03 78 16 99 Room Air 01/10/25 08:00 144/85 H 01/10/25 07:39 75 16 91 Room Air 01/10/25 07:30 78 19 98 Room Air 01/10/25 07:30 141/70 H 01/10/25 07:12 82 17 100 01/10/25 06:28 76 01/10/25 06:05 36.8 C 81 16 146/72 H 99 Room Air Laboratory Results Short CBC 01/10/25 Range/Units 06:24 WBC 11.52 H (4.8-10.8) K/ul Hgb 13.0 L (14.0-18.0) g/dl Hct 37.4 L (42.0-52.0) % Plt Count 269 (130-400) K/uL BMP 01/10/25 06:24 Sodium 137 Potassium 4.0 Chloride 101 Carbon Dioxide 24 BUN 14 Creatinine 0.82 Glucose 113 H Calcium 9.7 Liver Function 01/10/25 Range/Units 06:24 Total Bilirubin 0.6 (0.2-1.0) mg/dl AST 14 (13-39) U/L ALT 12 (7-52) U/L Alkaline Phosphatase 94 (34-104) U/L Albumin 4.1 (3.4-5.0) gm/dl Diagnostic Findings Chest/Abdomen X-ray 01/10/25 06:22 EXAM: XR abdomen 2V w PA chest CLINICAL HISTORY: Nausea/vomiting, s/p surgery. TECHNIQUE: X-ray images of the chest, PA, and abdomen were obtained in Anteroposterior (AP) projection. COMPARISON: Radiographs dated 05/19/2022 and 05/18/2022 were reviewed. FINDINGS: ABDOMEN: Gas Pattern: Fecal loaded large bowel loops. Gas pattern within the abdomen is normal. No evidence of bowel obstruction or distention. Soft Tissues: Multiple calcified densities are noted within the pelvis, which may suggest phleboliths. Soft tissues of the abdomen appear normal without evidence of masses or calcifications. Liver, spleen, and kidneys are of normal size and position. CHEST: Pulmonary Parenchyma: Technically rotated the patient. Mild right infrahilar prominent reticulations/ bronchovascular opacities, likely secondary to rotation of the patient. Lungs are clear bilaterally. No evidence of consolidation, collapse, or focal opacities. No pulmonary nodules identified. No evidence of pleural effusion or pleural thickening. Heart and Mediastinum: The cardiothoracic ratio cannot be commented upon due to the AP projection. Curvilinear calcification seen in the aortic arch, unchanged. No mediastinal widening or masses. No hilar or mediastinal lymphadenopathy. Bony Thorax: Suggestion of reduced vertebral height of T11 and L2 vertebral bodies, likely osteoporotic. Moderate degenerative osteoarthritic changes. IMPRESSION: 1. No acute abnormalities identified. 2. No gross effusion or consolidation on either side. Electronically signed by Eliot Horowitz 01-10-2025 08:08 AM Abdomen/Pelvis CT 01/10/25 13:[address] WITH IV CONTRAST CT DOSE: 1521.46 mGy.cm HISTORY: Acute nausea with vomiting intractable vomiting TECHNIQUE: Multiaxial CT images of the abdomen and pelvis were performed following the IV administration of 94 cc of Optiray, A dose lowering technique was utilized adhering to the principles of ALARA. COMPARISON STUDY: None. FINDINGS: Coronary artery calcifications. The lung bases appear clear. No pneumatosis or pneumoperitoneum. Unremarkable spleen, pancreas, gallbladder and adrenal glands. Hepatic steatosis. Patency of the hepatic and portal veins. Mild nonspecific bilateral perinephric stranding. Subcentimeter hypodensities of the kidneys are too small to characterize. 5 mm nonobstructing calculus in the interpolar left kidney. Prostamegaly. Urinary bladder wall thickening likely represents chronic outlet obstruction. Atherosclerosis of the aorta without aneurysm. Subcentimeter iliac chain lymph nodes measure up to 8 mm, nonspecific. Additional subcentimeter lymph nodes adjacent to the distal esophagus. Colonic diverticulosis without acute diverticulitis. Mild to moderate colonic fecal retention. The appendix measures 7 mm transversely and appears to be noninflamed. Tiny fat filled umbilical hernia. Unremarkable soft tissues. No acute fracture. IMPRESSION: 1. No bowel obstruction or bowel wall thickening. 2. The appendix measures in the upper limits of normal however appears to be noninflamed. 3. Nonobstructing left renal calculus. 4. Colonic diverticulosis without acute diverticulitis. ACT 112: Negative or not required by law. The above report was generated using voice recognition software. It may contain grammatical, syntax or spelling errors. Electronically signed by: Siddharth Aguayo M.D. 01/10/2025 3:00 PM Supervising Physician Co-Signing Physician Notes Patient seen and examined independently. Discussed with above provider Patient presents with nausea, vomiting and constipation since last several days; had recent hand surgery and used Ozempic after surgery which likely contributed to the symptoms. Continue supportive care, bowel regimen, IV fluids. I have reviewed the advanced practitioner's documentation, and I agree with, and take responsibility for the plan of care I spent a total of 20 minutes coordinating, documenting, and providing care for this patient excluding time spent in the performance of separately billed services. All of the aforementioned completed while collaborating with the assigned advanced practitioner for a full treatment plan
[2025-01-10] MEDS: OPTIRAY 320 100ml IV ONE (14:29)
--- NOTE | 2025-01-10 15:02 | CT Scan Report ---
ABDOMEN AND PELVIS CT WITH IV CONTRAST CT DOSE: 1521.46 mGy.cm HISTORY: Acute nausea with vomiting intractable vomiting TECHNIQUE: Multiaxial CT images of the abdomen and pelvis were performed following the IV administrat ion of 94 cc of Optiray, A dose lowering technique was utilized adhering to the principles of ALARA. COMPARISON STUDY: None. FINDINGS: Coronary artery calcifications. The lung bases appear clear. No pneumatosis or pneumoperito neum. Unremarkable spleen, pancreas, gallbladder and adrenal glands. Hepatic steatosis. Patency of th e hepatic and portal veins. Mild nonspecific bilateral perinephric stranding. Subcentimeter hypodensi ties of the kidneys are too small to characterize. 5 mm nonobstructing calculus in the interpolar lef t kidney. Prostamegaly. Urinary bladder wall thickening likely represents chronic outlet obstruction. Atherosclerosis of the aorta without aneurysm. Subcentimeter iliac chain lymph nodes measure up to 8 mm, nonspecific. Additional subcentimeter lymph nodes adjacent to the distal esophagus. Colonic diverticulosis without acute diverticulitis. Mild to moderate colonic fecal retention. The ap pendix measures 7 mm transversely and appears to be noninflamed. Tiny fat filled umbilical hernia. Un remarkable soft tissues. No acute fracture. IMPRESSION: 1. No bowel obstruction or bowel wall thickening. 2. The appendix measures in the upper limits of normal however appears to be noninflamed. 3. Nonobstructing left renal calculus. 4. Colonic diverticulosis without acute diverticulitis. ACT 112: Negative or not required by law. The above report was generated using voice recognition software. It may contain grammatical, syntax o r spelling errors. Electronically signed by: Siddharth Aguayo M.D. 01/10/2025 3:00 PM
[2025-01-10] MEDS ORDERED: MAGNESIUM CITRATE 296 ML/BTL PO ONE (18:37)
[2025-01-10] MEDS ORDERED: GLUCOSE 40% GEL 15 GM TUBE PO PRN (18:37)
[2025-01-10] MEDS ORDERED: DEXTROSE 50% 50 ML SYRINGE IV PRN (18:37)
[2025-01-10] MEDS ORDERED: GLUCOSE 10 TAB/TUBE PO PRN (18:37)
[2025-01-10] MEDS ORDERED: ALBUTEROL HFA 8 GM INHALER INH PRN (18:37)
[2025-01-10] MEDS ORDERED: GLUCAGON FOR INJ 1 MG VIAL SQ PRN (18:37)
[2025-01-10] MEDS ORDERED: ACETAMINOPHEN 325 MG TAB PO PRN (18:37)
[2025-01-10] MEDS ORDERED: ONDANSETRON INJ 2 MG/ML 2 ML VIAL IV PRN (18:37)
[2025-01-10] MEDS ORDERED: CARBOHYDRATES FOR HYPOGLYCEMIA PO PRN (18:37)
[2025-01-10] MEDS: D5W AND NSS 1,000 ML IV SCH (18:44)
[2025-01-10] MEDS ORDERED: Patient's HEIGHT &/or WEIGHT Needed SCH (19:00)
[2025-01-10] MEDS: ENOXAPARIN INJ 40 MG/0.4 ML SYR SQ SCH (21:32)
[2025-01-10] MEDS: POLYETHYLENE (MIRALAX) 17 GM PACK PO SCH (21:32)
[2025-01-10] MEDS: PHENYTOIN SODIUM ER 100 MG CAP PO SCH (21:33)
[2025-01-10] MEDS: CYCLOBENZAPRINE HCL 10 MG TAB PO SCH (21:33)
[2025-01-10] MEDS: busPIRone 15 MG TAB PO SCH (21:34)
[2025-01-10] MEDS: MAGNESIUM CITRATE 296 ML/BTL PO SCH (22:02)
[2025-01-10] MEDS ORDERED: SODIUM CHLORIDE 0.9% 10ML FLUSH IV STA (22:07)
[2025-01-10] MEDS ORDERED: 0.2 MICRON FILTER SET 1 EACH IV ONE (22:07)
[2025-01-11 07:39] LABS: Hematocrit (blood only) 35.9 % (42.0-52.0); Hemoglobin 12.1 g/dl (14.0-18.0); Immature Granulocytes # (auto) 0.03 K/uL (0.01-0.20); Immature Granulocytes % (auto) 0.3 %; Mean Corpuscular Hemoglobin 28.5 pg (25.0-34.0); Mean Corpuscular Volume 84.5 fL (80.0-100.0); Platelet Count 258 K/uL (130-400); RDW Standard Deviation 38.5 fL (36.4-46.3); Red Blood Count 4.25 M/uL (4.70-6.10); White Blood Count 9.98 K/ul (4.8-10.8)
[2025-01-11 08:01] LABS: Anion Gap 7.0 (3-11); Blood Urea Nitrogen 11.0 mg/dl (6-23); Calcium 9.1 mg/dl (8.6-10.3); Carbon Dioxide 26.0 mmol/L (21-32); Chloride 106.0 mmol/L (98-107); Creatinine Clr Calc Pharmacy 127.1 ml/min; Glucose 91.0 mg/dl (70-99(Fasting)); Potassium 3.6 mmol/L (3.5-5.1); Sodium 139.0 mmol/L (136-145)
[2025-01-11] MEDS: ROSUVASTATIN CALCIUM 20 MG TAB PO SCH (08:04)
[2025-01-11] MEDS: ASPIRIN 81 MG ECTAB PO SCH (08:05)
[2025-01-11] MEDS: SODIUM CHLORIDE 0.9% 10ML FLUSH IV SCH (08:27)
[2025-01-11] MEDS: PHENYTOIN IV SCH (08:27)
[2025-01-11] MEDS: SODIUM CHLORIDE 0.9% IV SCH (08:27)
[2025-01-11] MEDS ORDERED: 0.2 MICRON FILTER SET 1 EACH IV SCH (09:00)
[2025-01-11] MEDS ORDERED: PHENYTOIN SOD INJ 50 MG/ML 5 ML VIAL IV SCH (09:00)
--- NOTE | 2025-01-11 11:08 | Hospitalist Progress Note ---
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 Patient states upon returning home from procedure he took his Ozempic. He then took a hydrocodone and his home medications and reports vomited. Vomiting with attempted oral intake since. No BM 3 days [employer]. He is being managed for the following: Intractable vomiting In ER afebrile, vitals stable. WBC: 11.5, lipase and LFTs WNL In ER given 1L NSS, IV Pepcid, IV Compazine, IV Protonix Initially patient had reported improvement and was sipping on fluids and retaining. Was given some of home medications. Patient attempted eating crackers which was then followed by emesis CT Abd/pelvis: No bowel obstruction or bowel wall thickening. The appendix measures in the upper limits of normal however appears to be noninflamed. Nonobstructing left renal calculus. Colonic diverticulosis without acute diverticulitis. Possible secondary to anesthesia, narcotics and Ozempic Tolerating clear liquid diet, will advance to full liquid and possibly to soft bilaterally evening if no further nausea/vomiting. Patient reports feeling significantly better, denies further nausea/vomiting/abdominal pain. She is tolerating p.o., monitor off IV fluid. Labs in AM. Continue with NM bisacodyl. #Recent Right Hand procedure On 01/08/25 had outpatient arthroplasty right intercarpal/carpometacarpal joints by Dr Gabriel for trapeziometacarpal arthritis Right wrist at [facility] Right hand/wrist in splint Has follow up appointment ortho next week (3) Diabetes mellitus, type II: Plan: A1c: 6.2 on 10/20/24 Random bs Monitor BSG Will hold on insulin sliding scale currently as NPO Hold home metformin, Ozempic (4) Hypertension: Plan: Continue amlodipine, lisinopril (5) HLD (hyperlipidemia): Plan: Continue rosuvastatin (6) Muscle cramping: Plan: History peripheral neuropathy H/O unknown cramping syndrome (per Neuroimmunology, 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 and less likely Stiff Person Syndrome with history and imaging not consistent with MS) On cyclobenzaprine and phenytoin Follows with neurology (7) History of CVA (cerebrovascular accident): Plan: History right pontine infarct with left sided weakness continue aspirin, rosuvastatin (8) Depression with anxiety: Plan: Continue aripiprazole, buspirone, desvenlafaxine (9) COPD (chronic obstructive pulmonary disease): Plan: No sign acute exacerbation Continue albuterol prn DVT Prophylaxis: Lovenox SQ Admit med tele DNR/DNI as per discussion with pt Follows with Dr West Darden for routine care Admission and Anticipated Discharge Date Admission Date: January 10, 2025 Subjective Patient was seen and examined at bedside. Patient was sitting up in bed, on room air, NAD, resting comfortably. Patient reports feeling significantly better, reports no further nausea/vomiting/abdominal pain. Tolerated clear liquid diet today. Patient reports no diarrhea or sore throat or cough or other issues. Patient would like to take it slowly and would like to advance to full liquid for now instead of soft diet and would be comfortable going home tomorrow instead of today as he lives alone. Physical Exam Physical Exam: General: no distress, WDWN elderly male Head: normocephalic, atraumatic Eyes: conjunctiva non-injected, anicteric ENT: normal inspection external ears, nose, mucous membranes moist Neck: supple, trachea midline Lungs: clear, no respiratory distress, no wheezing/rhonchi/rales CV: RRR, no murmur, no pretibial edema Abd: normal BS, soft, non tender Ext: no cyanosis, no calf tenderness; RUE: +splint on right wrist and hand. Able to actively move fingers and sensation to light touch of fingers intact, brisk capillary refill Neuro: A&O x 3, +left sided weakness (chronic), normal affect Skin: warm, dry Results & Data Results & Data Vital Signs (Past 12 Hours) Vital Signs Temp Pulse Pulse Resp BP BP Pulse Ox 01/11/25 09:49 01/11/25 08:02 168/77 H 146/72 H 01/11/25 08:00 36.9 C 69 16 146/72 H 97 01/11/25 07:00 63 01/11/25 04:18 37.0 C 70 18 174/73 H 96 01/10/25 23:28 36.8 C 68 16 159/79 H 96 O2 Del Method 01/11/25 09:49 Room Air 01/11/25 08:02 01/11/25 08:00 Room Air 01/11/25 07:00 01/11/25 04:18 Room Air 01/10/25 23:28 Room Air
[2025-01-11 20:46] VITALS: RESP 18
[2025-01-11] MEDS: PHENYTOIN SODIUM ER 100 MG CAP PO SCH (21:19)
--- NOTE | 2025-01-12 06:44 | Electrocardiogram Report ---
Test Reason : Blood Pressure : */* mmHG Vent. Rate : 75 BPM Atrial Rate : 75 BPM P-R Int : 206 ms QRS Dur : 74 ms QT Int : 384 ms P-R-T Axes : -19 -4 5 degrees QTcB Int : 428 ms Normal sinus rhythm Possible Inferior infarct , age undetermined Abnormal ECG When compared with ECG of 19-May-2022 07:43, Possible Inferior infarct is now Present Nonspecific T wave abnormality, worse in Inferior leads T wave inversion no longer evident in Lateral leads Confirmed by Tacos Velazquez ([id number]) on 01/12/2025 6:44:28 AM Referred By: REFERRED SELF Confirmed By: Tacos Velazquez
[2025-01-12 09:23] LABS: Hematocrit (blood only) 41.0 % (42.0-52.0); Hemoglobin 13.8 g/dl (14.0-18.0); Mean Corpuscular Hemoglobin 28.2 pg (25.0-34.0); Mean Corpuscular Volume 83.7 fL (80.0-100.0); Platelet Count 278 K/uL (130-400); RDW Standard Deviation 37.6 fL (36.4-46.3); Red Blood Count 4.90 M/uL (4.70-6.10); White Blood Count 9.36 K/ul (4.8-10.8)
[2025-01-12 09:37] LABS: Anion Gap 9.0 (3-11); Blood Urea Nitrogen 11.0 mg/dl (6-23); Calcium 9.6 mg/dl (8.6-10.3); Carbon Dioxide 26.0 mmol/L (21-32); Chloride 103.0 mmol/L (98-107); Creatinine Clr Calc Pharmacy 117.1 ml/min; Glucose 125.0 mg/dl (70-99(Fasting)); Magnesium 1.8 mg/dl (1.7-2.4); Potassium 3.8 mmol/L (3.5-5.1); Sodium 138.0 mmol/L (136-145)
--- NOTE | 2025-01-12 10:39 | Hospitalist Progress Note ---
Date of Service January 12, 2025 Assessment & Plan (1) Nausea & vomiting: Plan: Presented with intractable nausea and vomiting the day following right hand procedure Likely secondary to anesthetic agents and complicated by use of narcotics and also Ozempic CT of the abdomen pelvis was unremarkable and this morning he does not have any symptoms whatsoever He has been ambulating in the room and in the hallway and wants to be discharged Has been tolerating regular diet and denies any nausea or vomiting He will be discharged home this afternoon He will start taking his Ozempic from this Wednesday (2) Constipation: Plan: 69 year old male with PMH HTN, HLD, CAD, DM II, right pontine infarct with left sided weakness, peripheral neuropathy, and an unknown cramping syndrome (per Neuroimmunology, 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 Patient states upon returning home from procedure he took his Ozempic. He then took a hydrocodone and his home medications and reports vomited. Vomiting with attempted oral intake since. No BM 3 days [facility]. He is being managed for the following: Intractable vomiting In ER afebrile, vitals stable. WBC: 11.5, lipase and LFTs WNL In ER given 1L NSS, IV Pepcid, IV Compazine, IV Protonix Initially patient had reported improvement and was sipping on fluids and retaining. Was given some of home medications. Patient attempted eating crackers which was then followed by emesis CT Abd/pelvis: No bowel obstruction or bowel wall thickening. The appendix measures in the upper limits of normal however appears to be noninflamed. Nonobstructing left renal calculus. Colonic diverticulosis without acute diverticulitis. Possible secondary to anesthesia, narcotics and Ozempic Tolerating clear liquid diet, will advance to full liquid and possibly to soft bilaterally evening if no further nausea/vomiting. Patient reports feeling significantly better, denies further nausea/vomiting/abdominal pain. She is tolerating p.o., monitor off IV fluid. Labs in AM. Continue with [place] bisacodyl. #Recent Right Hand procedure On 01/08/25 had outpatient arthroplasty right intercarpal/carpometacarpal joints by Dr Gabriel for trapeziometacarpal arthritis Right wrist at [facility] Right hand/wrist in splint Has follow up appointment ortho next week (3) Diabetes mellitus, type II: Plan: A1c: 6.2 on 10/20/24 Random bs Monitor BSG Will hold on insulin sliding scale currently as NPO Hold home metformin, Ozempic Can resume his outpatient medications on discharge (4) Hypertension: Plan: Continue amlodipine, lisinopril (5) HLD (hyperlipidemia): Plan: Continue rosuvastatin (6) Muscle cramping: Plan: History peripheral neuropathy H/O unknown cramping syndrome (per Neuroimmunology, 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 and less likely Stiff Person Syndrome with history and imaging not consistent with MS) On cyclobenzaprine and phenytoin Follows with neurology (7) History of CVA (cerebrovascular accident): Plan: History right pontine infarct with left sided weakness continue aspirin, rosuvastatin (8) Depression with anxiety: Plan: Continue aripiprazole, buspirone, desvenlafaxine (9) COPD (chronic obstructive pulmonary disease): Plan: No sign acute exacerbation Continue albuterol prn DVT Prophylaxis: Lovenox SQ Admit med tele DNR/DNI as per discussion with pt Follows with Dr West Darden for routine care Admission and Anticipated Discharge Date Admission Date: January 10, 2025 Subjective 01/12/2025 The patient was seen and examined in medical telemetry unit He has been feeling much better and does not have any nausea, vomiting or abdominal discomfort His labs remained unremarkable and he wants to go home Has been ambulating in the room in the hallway without any difficulties Review of Systems Review of Systems: All systems reviewed and are unremarkable except as noted below Physical Exam Physical Exam: Sitting on a chair without any acute distress Constitutional: well developed, well nourished and + ill appearing Eyes: PERRL, conjunctivae normal, anicteric sclerae ENMT: external ear and nose normal, oropharynx normal Neck: trachea midline, no thyromegaly Respiratory: no respiratory distress Auscultation: lungs clear to auscultation bilaterally Cardiovascular: Rate/Rhythm: regular rate and regular rhythm; not tachycardic Heart Sounds: normal S1 and normal S2; no murmur Extremities: no edema Gastrointestinal (Abdomen): Inspection/Auscultation: normal bowel sounds; abdomen not distended Percussion/Palpation: abdomen soft; abdomen nontender Musculoskeletal: No acute arthritis involving any of the joint and he has right arm hard cast Neurologic: normal touch/pain/proprioception and moves all extremities; no focal motor deficits Lymphatic: no cervical or axillary lymphadenopathy Results & Data Results & Data Vital Signs (Past 12 Hours) Vital Signs Temp Pulse Pulse Resp BP Pulse Ox O2 Del Method 01/12/25 07:41 36.5 C 62 18 145/76 H 97 Room Air 01/12/25 07:16 67 01/12/25 03:45 36.4 C L 71 133/68 94 Room Air Laboratory Results Short CBC 01/12/25 Range/Units 08:46 WBC 9.36 (4.8-10.8) K/ul Hgb 13.8 L (14.0-18.0) g/dl Hct 41.0 L (42.0-52.0) % Plt Count 278 (130-400) K/uL BMP 01/12/25 08:46 Sodium 138 Potassium 3.8 Chloride 103 Carbon Dioxide 26 BUN 11 Creatinine 0.77 Glucose 125 H Calcium 9.6 Medications Administered Current Inpatient Medications Acetaminophen (Acetaminophen 325 Mg Tab) 650 mg PO Q4H PRN PRN Reason: Pain or Fever Stop: 02/09/25 18:36 Albuterol (Albuterol Hfa 8 Gm Inhaler) 2 puffs INH Q6H PRN PRN Reason: SOB/wheezing Stop: 02/09/25 18:36 Amlodipine Besylate (Amlodipine Besylate 5 Mg Tab) 5 mg PO DAILY KEN Stop: 02/10/25 08:59 Last Admin: 01/12/25 08:00 Dose: 5 mg Aripiprazole (Aripiprazole 10 Mg Tab) 10 mg PO DAILY KEN Stop: 02/10/25 08:59 Last Admin: 01/12/25 08:00 Dose: 10 mg Aspirin (Aspirin 81 Mg Ectab) 81 mg PO QAM KEN Stop: 02/10/25 08:59 Last Admin: 01/12/25 08:00 Dose: 81 mg Buspirone HCl (Buspirone 15 Mg Tab) 30 mg PO BID KEN Stop: 02/09/25 20:59 Last Admin: 01/12/25 08:00 Dose: 30 mg Cyclobenzaprine HCl (Cyclobenzaprine Hcl 10 Mg Tab) 10 mg PO BID KEN Stop: 02/09/25 20:59 Last Admin: 01/12/25 08:03 Dose: 10 mg Dextrose (Dextrose 50% 50 Ml Syringe) 25 - 50 ml IV UD PRN; Protocol PRN Reason: Hypoglycemia Protocol Stop: 02/09/25 18:36 Enoxaparin Sodium (Enoxaparin Inj 40 Mg/0.4 Ml Syr) 40 mg SQ Q24H KEN Stop: 02/09/25 20:59 Last Admin: 01/11/25 21:19 Dose: 40 mg Glucagon (Glucagon For Inj 1 Mg Vial) 1 mg SQ UD PRN; Protocol PRN Reason: Hypoglycemia Protocol Stop: 02/09/25 18:36 Glucose (Glucose 40% Gel 15 Gm Tube) 15 - 30 gm PO UD PRN; Protocol PRN Reason: Hypoglycemia Protocol Stop: 02/09/25 18:36 Glucose (Glucose 10 Tab/Tube) 4 - 8 tab PO UD PRN; Protocol PRN Reason: Hypoglycemia Protocol Stop: 02/09/25 18:36 Hydroxyzine HCl (Hydroxyzine Hcl 25 Mg Tab) 100 mg PO BID PRN PRN Reason: Anxiety Stop: 02/09/25 18:36 Lisinopril (Lisinopril 40 Mg Tab) 40 mg PO DAILY KEN Stop: 02/10/25 08:59 Last Admin: 01/12/25 08:01 Dose: 40 mg Miscellaneous (Carbohydrates For Hypoglycemia ) 15 - 30 gm PO UD PRN PRN Reason: Hypoglycemia Protocol Stop: 02/09/25 18:36 Miscellaneous (Desvenlafaxine) 1 each N/A QS KEN Stop: 02/10/25 00:00 Last Admin: 01/12/25 07:23 Dose: Not Given Ondansetron HCl (Ondansetron Inj 2 Mg/Ml 2 Ml Vial) 4 mg IV Q6H PRN PRN Reason: Nausea Stop: 02/09/25 18:36 Pantoprazole Sodium (Pantoprazole 40 Mg Tab) 40 mg PO BID KEN Stop: 02/09/25 20:59 Last Admin: 01/12/25 08:00 Dose: 40 mg Phenytoin Sodium (Phenytoin Sodium Er 100 Mg Cap) 300 mg PO AMHS KEN Stop: 02/09/25 20:59 Last Admin: 01/10/25 21:33 Dose: 300 mg Phenytoin Sodium (Phenytoin Sodium Er 100 Mg Cap) 300 mg PO AMHS KEN Stop: 02/10/25 20:59 Last Admin: 01/12/25 08:01 Dose: 300 mg Polyethylene Glycol (Polyethylene (Miralax) 17 Gm Pack) 17 gm PO BID KEN Stop: 02/09/25 20:59 Last Admin: 01/12/25 08:00 Dose: Not Given Rosuvastatin Calcium (Rosuvastatin Calcium 20 Mg Tab) 40 mg PO DAILY KEN Stop: 02/10/25 08:59 Last Admin: 01/12/25 08:00 Dose: 40 mg
[2025-01-12 11:33] VITALS: TEMP 97.3; O2SAT 94
[2025-01-12 12:56] VITALS: BP 147/70; PULSE 75
--- NOTE | 2025-01-12 17:45 | Discharge Summary ---
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 On 01/08/25 had outpatient arthroplasty right intercarpal/carpometacarpal joints by Dr Gabriel for trapeziometacarpal arthritis Right wrist at [facility]. Patient states upon returning home from procedure he took his Ozempic. He then took a hydrocodone and his home medications and reports vomited. Patient states since has had vomiting after any attempted drinking or eating and had been unable to take medications. Patient reports has sweats and chills prior to vomiting episodes. States having lower abdominal pain started after vomiting and has been consistent but seems to ease after vomiting. Patient reports vomit is yellow and brown in coloration. Denies bright red blood or coffee ground emesis. Denies history of SBO. States has tolerated Ozempic well except his very first dose had vomiting and subsequent doses without any symptoms. Patient reports history N/V after anesthesia in past that lasted several days. He states last BM was 3 days ago. Today he feels like he is passing flatus. He reports his right hand and wrist are pain free. Reports has follow up appointment next week with ortho for recheck. Reports unsteady gait at baseline and uses a cane. States last fall 4 days ago in the yard in which he reports he lost his balance and fell. Has abrasions to legs but denies other injury. States has intermittent cough, sometimes productive but unsure of color and denies any increased cough or sputum production. Denies fever dizziness, syncope, vision changes, neck pain, CP, SOB, orthopnea, palpitations, sore throat, otalgia, rhinorrhea, paresthesias, increased weakness, extremity edema, rashes, urinary symptoms. Admission Exam Per Admitting Provider Physical Exam: General: no distress, WDWN elderly male Head: normocephalic, atraumatic Eyes: conjunctiva non-injected, anicteric ENT: normal inspection external ears, nose, mucous membranes dry Neck: supple, trachea midline Lungs: clear, no respiratory distress, no wheezing/rhonchi/rales CV: RRR, no murmur, no pretibial edema Abd: normal BS, soft,+tenderness to palpation RLQ and LLQ without rebound or guarding Ext: no cyanosis, no calf tenderness; RUE: +splint on right wrist and hand. Able to actively move fingers and sensation to light touch of fingers intact, brisk capillary refill Neuro: A&O x 3, +left sided weakness (chronic), normal affect Skin: warm, dry Principal Diagnosis Nausea and vomiting Discharge Exam Sitting on a chair without any acute distress Constitutional well developed, well nourished and + ill appearing Eyes PERRL, conjunctivae normal, anicteric sclerae ENMT external ear and nose normal, oropharynx normal Neck trachea midline, no thyromegaly Respiratory no respiratory distress Auscultation: lungs clear to auscultation bilaterally Cardiovascular Rate/Rhythm: regular rate and regular rhythm; not tachycardic Heart Sounds: normal S1 and normal S2; no murmur Extremities: no edema Gastrointestinal (Abdomen) Inspection/Auscultation: normal bowel sounds; abdomen not distended Percussion/Palpation: abdomen soft; abdomen nontender Neurologic normal touch/pain/proprioception and moves all extremities; no focal motor deficits Lymphatic no cervical or axillary lymphadenopathy Discharge Data Allergies Allergy/AdvReac Type Severity Reaction Status Date / Time No Known Allergies Allergy Verified 05/26/22 19:57 Consultations 01/10/25 13:32 ED Decision to Admit Stat Ordered Studies 01/10/25 13:35 CT Abd and Pelvis [CT abd pelvis IV con only] Stat Hospital Course (1) Nausea & vomiting: Presented with intractable nausea and vomiting the day following right hand procedure Likely secondary to anesthetic agents and complicated by use of narcotics and also Ozempic CT of the abdomen pelvis was unremarkable and this morning he does not have any symptoms whatsoever He has been ambulating in the room and in the hallway and wants to be discharged Has been tolerating regular diet and denies any nausea or vomiting He will be discharged home this afternoon He will start taking his Ozempic from this Wednesday (2) Constipation: 69 year old male with PMH HTN, HLD, CAD, DM II, right pontine infarct with left sided weakness, peripheral neuropathy, and an unknown cramping syndrome (per Neuroimmunology, 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 Patient states upon returning home from procedure he took his Ozempic. He then took a hydrocodone and his home medications and reports vomited. Vomiting with attempted oral intake since. No BM 3 days [employer]. He is being managed for the following: Intractable vomiting In ER afebrile, vitals stable. WBC: 11.5, lipase and LFTs WNL In ER given 1L NSS, IV Pepcid, IV Compazine, IV Protonix Initially patient had reported improvement and was sipping on fluids and retain ing. Was given some of home medications. Patient attempted eating crackers which was then followed by emesis CT Abd/pelvis: No bowel obstruction or bowel wall thickening. The appendix measures in the upper limits of normal however appears to be noninflamed. Nonobstructing left renal calculus. Colonic diverticulosis without acute diverticulitis. Possible secondary to anesthesia, narcotics and Ozempic Tolerating clear liquid diet, will advance to full liquid and possibly to soft bilaterally evening if no further nausea/vomiting. Patient reports feeling significantly better, denies further nause a/vomiting/abdominal pain. She is tolerating p.o., monitor off IV fluid. Labs in AM. Continue with [place] bisacodyl. #Recent Right Hand procedure On 01/08/25 had outpatient arthroplasty right intercarpal/carpometacarpal joints by Dr Gabriel for trapeziometacarpal arthritis Right wrist at [facility] Right hand/wrist in splint Has follow up appointment ortho next week (3) Diabetes mellitus, type II: A1c: 6.2 on 10/20/24 Random bs Monitor BSG Will hold on insulin sliding scale currently as NPO Hold home metformin, Ozempic Can resume his outpatient medications on discharge (4) Hypertension: Continue amlodipine, lisinopril (5) HLD (hyperlipidemia): Continue rosuvastatin (6) Muscle cramping: History peripheral neuropathy H/O unknown cramping syndrome (per Neuroimmunology, 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 and less likely Stiff Person Syndrome with history and imaging not consistent with MS) On cyclobenzaprine and phenytoin Follows with neurology (7) History of CVA (cerebrovascular accident): History right pontine infarct with left sided weakness continue aspirin, rosuvastatin (8) Depression with anxiety: Continue aripiprazole, buspirone, desvenlafaxine (9) COPD (chronic obstructive pulmonary disease): No sign acute exacerbation Continue albuterol prn DVT Prophylaxis: Lovenox SQ Admit med tele DNR/DNI as per discussion with pt Follows with Dr West Darden for routine care Total Time Total Time Spent Total Time Spent (In Minutes): 35 Minutes Discharge Plan Discharge Items Patient Disposition: Home - Self-Care Reason For Visit: VOMITING Discharge Diagnosis: Nausea and vomiting Condition on Discharge: Good Activity: Resume your previous activity Non-emergency contact: Primary Care Provider Call non-emergency contact if: you have any medication questions and your symptoms worsen Follow-up/Referrals: West Darden, [Primary Care Provider] - (Date & Time 01/18/2025 1:00 PM Provider: Paola Dominguez PA-C [facility] ) Diet: Heart Healthy Addtl Attending Provider Instructions: Please take precautions to avoid falls No change in your medications please keep appointments with your healthcare provider Pending Studies at Discharge: No Stand-Alone Forms: My [employer], Smoking Cessation Medications and DC Order Prescriptions: Continued cyclobenzaprine 10 mg tablet 10 mg PO BID metformin 500 mg tablet 500 mg PO BID hydroxyzine HCl 50 mg tablet 100 mg PO BID PRN (Reason: Anxiety) phenytoin sodium extended 100 mg capsule 300 mg PO AMHS omeprazole 40 mg capsule,delayed release(DR/EC) 40 mg PO BID buspirone 15 mg tablet 30 mg PO BID aspirin 81 mg Tablet,Delayed Release (Dr/Ec) 81 mg PO QAM Qty: 30 0RF Patient Comments: 01/10- otc unable to verify guaifenesin 200 mg tablet 200 mg PO TID PRN (Reason: congestion) Qty: 20 0RF Patient Comments: 01/10- otc unable to verify hydrocodone-acetaminophen 5-325 mg tablet 1 tab PO UD PRN (Reason: Pain) Rx Instructions: Rx 01/08/25 amlodipine 5 mg tablet 5 mg PO DAILY ondansetron 4 mg tablet,disintegrating 4 mg PO UD PRN (Reason: n/v) aripiprazole 10 mg tablet 10 mg PO DAILY Ozempic 2 mg/dose (8 mg/3 mL) pen injector 2 mg SUBCUT UD desvenlafaxine succinate 100 mg tablet extended release 24 hr 100 mg PO DAILY meclizine 25 mg tablet 25 mg PO TID PRN (Reason: dizziness) Patient Comments: 01/10- otc/no fill history for 25mg dose. unable to verify lisinopril 40 mg tablet 40 mg PO DAILY rosuvastatin 40 mg tablet 40 mg PO DAILY albuterol sulfate 90 mcg/actuation Hfa Aerosol Inhaler 2 puff INHALATION Q6H PRN (Reason: SOB/wheezing) Discharge Orders: Discharge Order (Routine); Ordered 01/12/25 Ordered By: Ann-Marie Mallory Admission Data Admit Date/Time: 01/10/25 14:23 Attending Provider: Ann-Marie Mallory Admit Provider: Todd Ramírez Primary Care Provider: West Darden Other Providers: Todd Ramírez; Erika Gonzalez Other Interventions: Discharge Summary Assessment (RN) Last Done: 01/12/25 12:56
== END 2025-01-12 14:06 | disposition home or self-care (01) | DRG 392 ==
LOC: ED 05:59 → 2W 14:23 → SUATTDRO 14:23 → 2W 18:14

== ENCOUNTER 2025-03-02 13:21 | Inpatient (IN) ==
--- NOTE | 2025-03-02 13:51 | Emergency Department Note ---
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 He notes he is a diabetic and noticed the wound about a week ago. It has been getting gradually worse and has redness streaking up the toe circumferentially and into the foot. Denies any fevers. He has no pain. No headache or change in vision. No chest pain or shortness of breath. No nausea, vomiting, or diarrhea. No other complaints at this time. ADDITIONAL HISTORY OBTAINED: Per HPI Chronic Medical/Social Conditions Affecting Care: Per HPI PAST MEDICAL HISTORY:See Below PAST SURGICAL HISTORY:See Below FAMILY HISTORY:See Below SOCIAL HISTORY:See Below HOME MEDICATIONS:See Below ALLERGIES:See Below VITALS:See Below PHYSICAL EXAMINATION: GENERAL: Sitting up in bed, alert, well appearing, well nourished, no distress, non-toxic EYE EXAM: normal conjunctiva. PERRL and EOM's grossly intact. OROPHARYNX: no exudate, no erythema, lips, buccal mucosa, and tongue normal and mucous membranes are moist NECK: supple, no nuchal rigidity, no adenopathy, non-tender LUNGS: Clear to auscultation. Normal chest wall mechanics HEART: no murmurs, S1 normal and S2 normal ABDOMEN: abdomen soft, non-tender, normo-active bowel sounds, no masses, no rebound or guarding. UPPER EXTREMITIES: upper extremities are grossly normal. LOWER EXTREMITIES: Left second toe at the distal tip plantar surface with black eschar and erythema circumferentially around the toe with redness streaking up the foot NEURO EXAM: Normal sensorium, cranial nerves II-XII grossly intact, normal speech, no gross weakness of arms, no gross weakness of legs. MEDICAL DECISION MAKING: Patient is a 69-year-old male who presents ER for the above-stated complaint. IV was established and blood work was obtained. Labs show no significant leukocytosis or anemia. BMP with LFTs bilirubin and lipase is unremarkable. X- ray of toe shows no obvious osteo. He does have cellulitis circumferentially throughout the toe and streaking up to the foot. Patient was given Rocephin IV as well as IV vancomycin. Case was discussed with the hospitalist for further evaluation management treatment. Consults/Care Managements Discussions: Per MDM Triage Nursing notes reviewed. Limited review of prior medical records performed Vital Signs: reviewed and remarkable for HTN Differential diagnosis: Cellulitis, abscess, MRSA infection, DVT, necrotizing fasciitis, dermatitis, drug eruption, allergic reaction, as well as other pathologies. ER treatment provided: See below Diagnostics interpreted by me include EKG and cardiac monitoring as listed below: -Cardiac Monitoring: An order was placed for continuous cardiac monitoring. The monitor shows a rate of 70 with sinus rhythm. -ECG: none -Laboratory studies:Interpreted by me as stated above in MDM and shown below. 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 (Acute) Constipation Adverse drug effect (Acute) Nausea & vomiting (Acute) Medical History Muscle cramping Depression with anxiety COPD (chronic obstructive pulmonary disease) History of CVA (cerebrovascular accident) HLD (hyperlipidemia) Diabetes mellitus, type II Vertebrobasilar artery stenosis Hypertension Syncope Vasovagal episode Vertigo Hx of multiple sclerosis Diabetes High blood pressure Surgical History H/O knee surgery Social History Smoking Status: Former smoker Tobacco Type: Cigarettes Second Hand Exposure: No; Do You Dip or Chew Tobacco: No; Hx Alcohol Use: Yes Alcohol type: beer and hard liquor Hx Substance Use: No Preferred Language: Spanish Communication Ability: Effective 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 Operator Required: No Beliefs That Will Affect Care: None Current Living Situation: Alone Feels Safe at Home: Yes Assistive Devices: Cane, CPAP and Walker Allergies Allergies Allergy/AdvReac Type Severity Reaction Status Date / Time No Known Allergies Allergy Verified 03/02/25 15:41 Home Meds Home Medications Medication Instructions Recorded Confirmed buspirone 15 mg tablet 30 mg PO BID 05/19/22 03/02/25 cyclobenzaprine 10 mg tablet 10 mg PO BID 05/19/22 03/02/25 metformin 500 mg tablet 500 mg PO BIDM 05/19/22 03/02/25 omeprazole 40 mg capsule,delayed 40 mg PO BID 05/19/22 03/02/25 release phenytoin sodium extended 100 mg 300 mg PO AMHS 05/19/22 03/02/25 capsule albuterol sulfate 90 mcg/actuation 2 puff inhalation Q4H PRN 01/10/25 03/02/25 aerosol inhaler SOB/wheezing amlodipine 5 mg tablet 5 mg PO DAILY 01/10/25 03/02/25 aripiprazole 10 mg tablet 10 mg PO DAILY 01/10/25 03/02/25 desvenlafaxine succinate 100 mg 100 mg PO DAILY 01/10/25 03/02/25 tablet,extended release 24 hr lisinopril 40 mg tablet 40 mg PO DAILY 01/10/25 03/02/25 ondansetron 4 mg disintegrating 4 mg PO Q8H PRN n/v 01/10/25 03/02/25 tablet rosuvastatin 40 mg tablet 40 mg PO DAILY 01/10/25 03/02/25 semaglutide 2 mg/dose (8 mg/3 mL) 2 mg subcut WK 01/10/25 03/02/25 subcutaneous pen injector (Ozempic) acetaminophen 500 mg tablet 1,000 mg PO BID 03/02/25 03/02/25 (Tylenol Extra Strength) ammonium lactate 12 % topical cream 1 applic topical DIRECTED PRN 03/02/25 03/02/25 NEEDED ascorbic acid (vitamin C) 500 mg 500 mg PO DAILY 03/02/25 03/02/25 tablet (Vitamin C) coenzyme Q10 100 mg capsule 100 mg PO DAILY 03/02/25 03/02/25 (CoQ-10) meclizine 12.5 mg tablet 12.5 mg PO TID PRN Dizziness 03/02/25 03/02/25 mupirocin 2 % topical ointment 1 applic topical BID PRN APPLY TO 03/02/25 03/02/25 NOSTRILS Previous Rx's Medication Instructions Recorded aspirin 81 mg tablet,delayed 81 mg PO QAM #30 tabs 05/22/22 release Results & Data (ED) Vital Signs Vital Signs - 24 hr 03/02/25 13:27 03/02/25 13:59 03/02/25 14:01 Temperature 36.3 C L Temperature Source Skin Pulse Rate 76 70 74 Respiratory Rate 20 18 Respiratory Effort / Characteristics Non-Labored Spontaneous Respiratory Depth Normal Respiratory Pattern Regular Blood Pressure 150/75 H 136/79 Blood Pressure Mean 100 89 Pulse Oximetry 95 93 Oxygen Delivery Method Room Air Sepsis Recent Fever Within 48 Hours No Sepsis New/Unexplained Change in Mental Status N/A Sepsis Action Taken by Nursing No Action Required 03/02/25 14:30 03/02/25 15:00 03/02/25 15:30 Temperature Temperature Source Pulse Rate 74 68 67 Respiratory Rate 18 18 18 Respiratory Effort / Characteristics Respiratory Depth Respiratory Pattern Blood Pressure 138/66 125/76 151/74 H Blood Pressure Mean 89 88 98 Pulse Oximetry 92 95 98 Oxygen Delivery Method Sepsis Recent Fever Within 48 Hours Sepsis New/Unexplained Change in Mental Status Sepsis Action Taken by Nursing 03/02/25 15:55 03/02/25 16:00 Temperature Temperature Source Pulse Rate 66 Respiratory Rate 20 Respiratory Effort / Characteristics Respiratory Depth Respiratory Pattern Blood Pressure 144/79 H Blood Pressure Mean 100 Pulse Oximetry 98 98 Oxygen Delivery Method Sepsis Recent Fever Within 48 Hours Sepsis New/Unexplained Change in Mental Status Sepsis Action Taken by Nursing Laboratory Data 03/02/25 13:59 03/02/25 13:59 Lab Results 03/02/25 Range/Units 13:59 WBC 10.61 (4.8-10.8) K/ul RBC 4.78 (4.70-6.10) M/uL Hgb 13.1 L (14.0-18.0) g/dl Hct 40.0 L (42.0-52.0) % MCV 83.7 (80.0-100.0) fL MCH 27.4 (25.0-34.0) pg MCHC 32.8 (32.0-36.0) g/dL RDW Std Deviation 38.7 (36.4-46.3) fL RDW Coeff of Abraham 12.8 (11.5-14.5) % Plt Count 260 (130-400) K/uL MPV 9.2 L (9.4-12.4) fL Immature Gran % (Auto) 0.3 % Neut % (Auto) 65.1 % Lymph % (Auto) 19.6 % Ell[place] % (Auto) 12.3 % Eos % (Auto) 2.4 % Baso % (Auto) 0.3 % Neut # (Auto) 6.91 H (1.40-6.50) K/uL Lymph # (Auto) 2.08 (1.20-3.40) K/uL Ellsworth # (Auto) 1.31 H (0.11-0.59) K/uL Eos # (Auto) 0.25 (0.00-0.50) K/uL Baso # (Auto) 0.03 (0.00-0.20) K/uL Immature Gran # (Auto) 0.03 (0.01-0.20) K/uL Sodium 138 (136-145) mmol/L Potassium 4.5 (3.5-5.1) mmol/L Chloride 105 (98-107) mmol/L Carbon Dioxide 23 (21-32) mmol/L Anion Gap 10 (3-11) BUN 20 (6-23) mg/dl Creatinine 0.84 (0.6-1.4) mg/dl Est Cr Clr Drug Dosing 100.2 ml/min eGFR 93.81 BUN/Creatinine Ratio 23.8 H (10-20) Glucose 106 H (70-99(Fasting)) mg/dl Calcium 9.5 (8.6-10.3) mg/dl Total Bilirubin 0.3 (0.2-1.0) mg/dl AST 17 (13-39) U/L ALT 17 (7-52) U/L Alkaline Phosphatase 118 H (34-104) U/L Total Protein 7.6 (6.0-8.3) gm/dl Albumin 3.9 (3.4-5.0) gm/dl Globulin 3.7 (2.5-4.0) gm/dl Albumin/Globulin Ratio 1.1 (0.9-2) Lipase 44 (11-82) U/L Administered Medications Vancomycin HCl 2,250 mg/ (Sodium Chloride) 545 mls @ 200 mls/hr IV NOW ONE Stop: 03/02/25 17:56 Last Admin: 03/02/25 15:44 Dose: 200 mls/hr Documented By: SKB Discontinued Medications Ceftriaxone Sodium (Rocephin) 2,000 mg in 50 mls @ 100 mls/hr IV NOW STA Stop: 03/02/25 14:13 Last Infusion: 03/02/25 15:15 Dose: Infused Documented By: Admin: 03/02/25 14:08 Dose: 100 mls/hr Documented By: CEF Imaging Data Radiologist's Impression: Toe X-Ray 03/02/25 13:44 XR toe(s) LT min 2V CLINICAL HISTORY: l 2nd ?osteo COMPARISON: None FINDINGS: No fracture or dislocation seen at the second through fifth toes. No evidence of osteomyelitis seen. IMPRESSION: No osteomyelitis seen. ACT 112: Negative or not required by law. Electronically signed by: Rambo Carmen M.D. 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 Condition: Fair Forms Stand Alone Forms: My [employer]9 Prescriptions Prescriptions: No Action cyclobenzaprine 10 mg tablet 10 mg PO BID metformin 500 mg tablet 500 mg PO BIDM phenytoin sodium extended 100 mg capsule 300 mg PO AMHS omeprazole 40 mg capsule,delayed release(DR/EC) 40 mg PO BID buspirone 15 mg tablet 30 mg PO BID aspirin 81 mg Tablet,Delayed Release (Dr/Ec) 81 mg PO QAM Qty: 30 0RF Patient Comments: 01/10- otc unable to verify amlodipine 5 mg tablet 5 mg PO DAILY ondansetron 4 mg tablet,disintegrating 4 mg PO Q8H PRN (Reason: n/v) aripiprazole 10 mg tablet 10 mg PO DAILY Ozempic 2 mg/dose (8 mg/3 mL) pen injector 2 mg SUBCUT WK Rx Instructions: SUNDAYS desvenlafaxine succinate 100 mg tablet extended release 24 hr 100 mg PO DAILY lisinopril 40 mg tablet 40 mg PO DAILY rosuvastatin 40 mg tablet 40 mg PO DAILY albuterol sulfate 90 mcg/actuation Hfa Aerosol Inhaler 2 puff INHALATION Q4H PRN (Reason: SOB/wheezing) meclizine 12.5 mg tablet 12.5 mg PO TID PRN (Reason: Dizziness) acetaminophen [Tylenol Extra Strength] 500 mg Tablet 1,000 mg PO BID ascorbic acid (vitamin C) [Vitamin C] 500 mg Tablet 500 mg PO DAILY ammonium lactate 12 % Cream 1 applic TOPICAL DIRECTED PRN (Reason: NEEDED) mupirocin 2 % Ointment 1 applic TOPICAL BID PRN (Reason: APPLY TO NOSTRILS ) coenzyme Q10 [CoQ-10] 100 mg Capsule 100 mg PO DAILY Referrals Referrals: West Darden DO [Primary Care Provider] - Discharge Problem: 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
[2025-03-02] MEDS: cefTRIAXone SODIUM 2,000 MG/50 ML BAG IV STA (14:08)
[2025-03-02 14:15] LABS: Hematocrit (blood only) 40.0 % (42.0-52.0); Hemoglobin 13.1 g/dl (14.0-18.0); Immature Granulocytes # (auto) 0.03 K/uL (0.01-0.20); Immature Granulocytes % (auto) 0.3 %; Mean Corpuscular Hemoglobin 27.4 pg (25.0-34.0); Mean Corpuscular Volume 83.7 fL (80.0-100.0); Platelet Count 260 K/uL (130-400); RDW Standard Deviation 38.7 fL (36.4-46.3); Red Blood Count 4.78 M/uL (4.70-6.10); White Blood Count 10.61 K/ul (4.8-10.8)
[2025-03-02 14:31] LABS: Alanine Aminotransferase 17.0 U/L (7-52); Albumin Globulin Ratio 1.1 (0.9-2); Albumin Level 3.9 gm/dl (3.4-5.0); Alkaline Phosphatase 118.0 U/L (34-104); Anion Gap 10.0 (3-11); Bilirubin,Total 0.3 mg/dl (0.2-1.0); Blood Urea Nitrogen 20.0 mg/dl (6-23); Calcium 9.5 mg/dl (8.6-10.3); Carbon Dioxide 23.0 mmol/L (21-32); Chloride 105.0 mmol/L (98-107); Creatinine Clr Calc Pharmacy 100.2 ml/min; Globulin 3.7 gm/dl (2.5-4.0); Glucose 106.0 mg/dl (70-99(Fasting)); Lipase 44.0 U/L (11-82); Potassium 4.5 mmol/L (3.5-5.1); Sodium 138.0 mmol/L (136-145); Total Protein 7.6 gm/dl (6.0-8.3)
--- NOTE | 2025-03-02 14:42 | XRay Report ---
XR toe(s) LT min 2V CLINICAL HISTORY: l 2nd ?osteo COMPARISON: None FINDINGS: No fracture or dislocation seen at the second through fifth toes. No evidence of osteomyel itis seen. IMPRESSION: No osteomyelitis seen. ACT 112: Negative or not required by law. Electronically signed by: Rambo Carmen M.D. 03/02/2025 2:40 PM
[2025-03-02] MEDS ORDERED: VANCOMYCIN CONSULT ACTIVE PRN (15:13)
[2025-03-02] MEDS: VANCOMYCIN HCL 2,250 MG in SODIUM CHLORIDE 0.9% 500 ML IV ONE (15:44)
--- NOTE | 2025-03-02 15:50 | History & Physical Report ---
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 Patient is at risk for worsening and progressing infection and potentially sepsis and requires hospital level care and intervention Admit to the MedSurg unit IV antibiotics, patient has never had any history of MRSA infection low suspicion for Pseudomonas at this time can continue with ceftriaxone and metronidazole, do not feel that there is an indication for vancomycin at this time Monitor glucose, cover with insulin sliding scale, check hemoglobin A1c Continue outpatient medications as ordered Consult podiatry to evaluate ulceration of the toe may need some debridement. Ankle-brachial index testing to evaluate for peripheral vascular disease History of Present Illness Chief Complaint: Left second toe red, swollen with redness to the foot and streaking. Sent from PCPs office Primary Care Provider: West Darden DO Patient 69-year-old gentleman with known diabetes and peripheral neuropathy presented to his PCPs office earlier today for follow-up on recent right thumb surgery. While there noted that his left second toe was very red and swollen with venous streaking. Sent to the emergency room for evaluation. In the emergency room WBCs were normal. Other laboratory studies were unrevealing. X- ray of the toe did not show any signs of osteomyelitis but on clinical exam appear to be cellulitic. Patient was referred to our service for inpatient management. Time my evaluation patient is comfortable. He says he has no feeling in his feet. He thinks that the toe looked normal on Wednesday but often does not take off his shoes and socks and does not exactly sure when the toe started to get red. He denies any fever or chills, no cough or cold symptoms, no chest pain, no shortness of breath, no nausea vomiting, no new problems with his bowels or bladder. No new lung in his hands arms legs or feet. He states has been eating well. He recently had right thumb surgery which she is recuperating well from and getting strength built back up. He does follow regularly with outside wigs salesperson and has an upcoming appointment. His [id number] at the bedside does give additional history that he has had issues with ulcerations of his toes in the past and has been followed by outpatient providers/podiatry where he lived previously in [facility]. Allergies Allergy/AdvReac Type Severity Reaction Status Date / Time No Known Allergies Allergy Verified 03/02/25 15:41 Home Medications Medication Instructions Recorded Confirmed Type buspirone 15 mg tablet 30 mg PO BID 05/19/22 03/02/25 History cyclobenzaprine 10 mg tablet 10 mg PO BID 05/19/22 03/02/25 History metformin 500 mg tablet 500 mg PO BIDM 05/19/22 03/02/25 History omeprazole 40 mg capsule,delayed 40 mg PO BID 05/19/22 03/02/25 History release phenytoin sodium extended 100 mg 300 mg PO AMHS 05/19/22 03/02/25 History capsule aspirin 81 mg tablet,delayed 81 mg PO QAM #30 tabs 05/22/22 03/02/25 Rx release albuterol sulfate 90 mcg/actuation 2 puff inhalation Q4H PRN 01/10/25 03/02/25 History aerosol inhaler SOB/wheezing amlodipine 5 mg tablet 5 mg PO DAILY 01/10/25 03/02/25 History aripiprazole 10 mg tablet 10 mg PO DAILY 01/10/25 03/02/25 History desvenlafaxine succinate 100 mg 100 mg PO DAILY 01/10/25 03/02/25 History tablet,extended release 24 hr lisinopril 40 mg tablet 40 mg PO DAILY 01/10/25 03/02/25 History ondansetron 4 mg disintegrating 4 mg PO Q8H PRN n/v 01/10/25 03/02/25 History tablet rosuvastatin 40 mg tablet 40 mg PO DAILY 01/10/25 03/02/25 History semaglutide 2 mg/dose (8 mg/3 mL) 2 mg subcut WK 01/10/25 03/02/25 History subcutaneous pen injector (Ozempic) acetaminophen 500 mg tablet 1,000 mg PO BID 03/02/25 03/02/25 History (Tylenol Extra Strength) ammonium lactate 12 % topical cream 1 applic topical DIRECTED PRN 03/02/25 03/02/25 History NEEDED ascorbic acid (vitamin C) 500 mg 500 mg PO DAILY 03/02/25 03/02/25 History tablet (Vitamin C) coenzyme Q10 100 mg capsule 100 mg PO DAILY 03/02/25 03/02/25 History (CoQ-10) meclizine 12.5 mg tablet 12.5 mg PO TID PRN Dizziness 03/02/25 03/02/25 History mupirocin 2 % topical ointment 1 applic topical BID PRN APPLY TO 03/02/25 03/02/25 History NOSTRILS Past Med/Surg History Problem List (Updated 03/02/25 @ 15:49 by Juan Vigil DO) Generalized anxiety disorder Major depressive disorder Coronary artery disease Cerebrovascular disease Diabetic peripheral neuropathy Diabetes mellitus type 2, noninsulin dependent Cellulitis of foot associated with diabetes mellitus 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 Constipation Adverse drug effect (Acute) Nausea & vomiting (Acute) Medical History Muscle cramping Depression with anxiety COPD (chronic obstructive pulmonary disease) History of CVA (cerebrovascular accident) HLD (hyperlipidemia) Diabetes mellitus, type II Vertebrobasilar artery stenosis Hypertension Syncope Vasovagal episode Vertigo Hx of multiple sclerosis Diabetes High blood pressure Surgical History H/O knee surgery Social History Smoking Status: Former smoker Tobacco Type: Cigarettes Second Hand Exposure: No; Do You Dip or Chew Tobacco: No; Hx Alcohol Use: Yes Alcohol type: beer and hard liquor Hx Substance Use: No Preferred Language: American Communication Ability: Effective Search Coordinator Required: No Beliefs That Will Affect Care: None Current Living Situation: Alone Feels Safe at Home: Yes Assistive Devices: Cane, CPAP and Walker Review of Systems Review of Systems: Pertinent positive and negative review of systems as mentioned in the HPI Physical Exam Physical Exam: Constitutional: Alert, obese,, nontoxic HEENT: Mucous membranes moist. Sclera clear Neck: Soft, no adenopathy Lungs: Clear to auscultation, decreased, no wheezes rales or rhonchi CV: S1-S2, regular Abdomen: Soft, nontender, nondistended Extremities: No significant edema Musculoskeletal: Left second toe swollen, erythematous, blackened eschar on the tip of the second toe, left forefoot is reddened and erythematous with some evidence of venous streaking. Neuro: No focal deficits Psych: Cooperative, normal mood Results & Data Results & Data Vital Signs (Past 12 Hours) Vital Signs Temp Pulse Resp BP Pulse Ox O2 Del Method 03/02/25 13:59 70 03/02/25 13:27 36.3 C L 76 20 150/75 H 95 Room Air Diagnostic Findings Reviewed imaging, laboratory and diagnostic studies. Pertinent findings as below. X-ray of the toe did not show any definitive osteomyelitis WBCs 10.6 Hemoglobin 13.1 Platelets of 260 Electrolytes within normal range Creatinine 0.84 Glucose of 106 Code Status & VTE Plan VTE Prophylaxis Plan VTE Prophylaxis will be ordered: Yes
--- NOTE | 2025-03-02 16:10 | Podiatry Consultation ---
Date of Consultation March 02, 2025 Assessment & Plan (1) Osteomyelitis of second toe of left foot: (2) Cellulitis of second toe of left foot: Plan - X-ray 3 views left forefoot 03/02/2025: No osteomyelitis seen - ABIs pending - WBC 10.61, - Culture: Collected from left second toe wound base. - Weightbearing: As tolerated in postop shoe left foot - Dressing: Change dressing once daily with Aquacel Ag and a dry sterile dressing to the left second toe - Debridement: Wound debrided as detailed in procedure note below without incident. There is a small probing area to what it appears to be the periosteum of the distal phalanx. Clinical findings consistent with diagnosis of osteomyelitis of the distal phalanx of the left second toe. Recommend amputation of the left second toe and patient is on board. However patient has significant erythema and edema to the left second toe which would preclude primary closure of the wound. Recommend continued IV antibiotic therapy throughout the weekend with tentative plan for amputation of the left second toe on Wednesday. N.p.o. at midnight Wednesday. Following amputation of the left second toe assuming no other medical complications requiring management I believe should be good level to discharge to home by Wednesday from my perspective on p.o. antibiotics. Surgical Excisional Debridement: Indication:Removal of necrotic tissue to promote healing Pre-op diagnosis: Diabetic ulceration left second toe Post-op diagnosis: Same Procedure: Surgical excisional debridement diabetic ulceration left second toe Surgeon: Heath Alvares DPM Anesthesia: None Bleeding:Minimal Disposition: Tolerated well Procedure: Informed consent obtained, Time Out taken. Patient understands and agrees to procedure. Excisional debridement was carried out of left second toe consisting of Hypercare ptotic, necrotic slough and subcutaneous tissue was carried out utilizing a curette and 15 blade. Anesthesia-none. Patient tolerated the procedure well. Bleeding-minimal. Controlled with-direct pressure. Post-debridement measurements: 1.7 x 1.0 x 0.3 cm. A total of 1.7 cm2 were debrided. History of Present Illness Reason for Consultation: Left second toe diabetic ulceration History of Present Illness 69-year-old male with past medical history significant for type 2 diabetes with peripheral neuropathy. Last A1c is 6.6 from 2022. Was seen in his PCPs office earlier today and noted to have increased redness and swelling with lymphangitis extending from the left second toe with a distal ulceration. He reported to the emergency department for further evaluation. No leukocytosis. Plain film radiographs without radiographic signs of osteomyelitis. Podiatry is consulted to further evaluate diabetic ulceration of left second toe. Discussed recommendation for amputation of left second toe with patient at length. Explained that we will reevaluate foot on Wednesday and assuming reduction of erythema and edema at the base of the second toe would move forward with amputation of the digit with primary closure. If we are not able to improve the soft tissue envelope by Wednesday would recommend amputation of the digit for source control followed by wound left open to heal via secondary intention. Patient denies pain in the left foot likely secondary to dense peripheral neuropathy. Allergies Allergy/AdvReac Type Severity Reaction Status Date / Time No Known Allergies Allergy Verified 03/02/25 15:41 Home Medications Medication Instructions Recorded Confirmed Type buspirone 15 mg tablet 30 mg PO BID 05/19/22 03/02/25 History cyclobenzaprine 10 mg tablet 10 mg PO BID 05/19/22 03/02/25 History metformin 500 mg tablet 500 mg PO BIDM 05/19/22 03/02/25 History omeprazole 40 mg capsule,delayed 40 mg PO BID 05/19/22 03/02/25 History release phenytoin sodium extended 100 mg 300 mg PO AMHS 05/19/22 03/02/25 History capsule aspirin 81 mg tablet,delayed 81 mg PO QAM #30 tabs 05/22/22 03/02/25 Rx release albuterol sulfate 90 mcg/actuation 2 puff inhalation Q4H PRN 01/10/25 03/02/25 History aerosol inhaler SOB/wheezing amlodipine 5 mg tablet 5 mg PO DAILY 01/10/25 03/02/25 History aripiprazole 10 mg tablet 10 mg PO DAILY 01/10/25 03/02/25 History desvenlafaxine succinate 100 mg 100 mg PO DAILY 01/10/25 03/02/25 History tablet,extended release 24 hr lisinopril 40 mg tablet 40 mg PO DAILY 01/10/25 03/02/25 History ondansetron 4 mg disintegrating 4 mg PO Q8H PRN n/v 01/10/25 03/02/25 History tablet rosuvastatin 40 mg tablet 40 mg PO DAILY 01/10/25 03/02/25 History semaglutide 2 mg/dose (8 mg/3 mL) 2 mg subcut WK 01/10/25 03/02/25 History subcutaneous pen injector (Ozempic) acetaminophen 500 mg tablet 1,000 mg PO BID 03/02/25 03/02/25 History (Tylenol Extra Strength) ammonium lactate 12 % topical cream 1 applic topical DIRECTED PRN 03/02/25 03/02/25 History NEEDED ascorbic acid (vitamin C) 500 mg 500 mg PO DAILY 03/02/25 03/02/25 History tablet (Vitamin C) coenzyme Q10 100 mg capsule 100 mg PO DAILY 03/02/25 03/02/25 History (CoQ-10) meclizine 12.5 mg tablet 12.5 mg PO TID PRN Dizziness 03/02/25 03/02/25 History mupirocin 2 % topical ointment 1 applic topical BID PRN APPLY TO 03/02/25 03/02/25 History NOSTRILS Patient History Medical History Muscle cramping Depression with anxiety COPD (chronic obstructive pulmonary disease) History of CVA (cerebrovascular accident) HLD (hyperlipidemia) Diabetes mellitus, type II Vertebrobasilar artery stenosis Hypertension Syncope Vasovagal episode Vertigo Hx of multiple sclerosis Diabetes High blood pressure Surgical History H/O knee surgery Social History Smoking Status: Former smoker Tobacco Type: Cigarettes Second Hand Exposure: No; Do You Dip or Chew Tobacco: No; Hx Alcohol Use: Yes Alcohol type: beer, wine and hard liquor Hx Substance Use: No Preferred Language: Irish Communication Ability: Effective 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 Denies pain in the left foot. Physical Exam Physical Exam: Const: Appears well developed and well nourished. No signs of acute distress present. CV: Extremities: No cyanosis or edema. Capillary refill time is less than 2 seconds all digits of the bilateral foot. Posterior tibial and dorsalis pedis pulses are palpable bilateral. Neuro: Loss of protective sensation bilateral foot Psych: Mood/Affect: Mood is normal. Affect is normal. Cognition: Orientation is intact to person, place and time. Focused lower extremity musculoskeletal exam: Leg: No pain with compression of the calf muscle. Ankles: Normal to inspection and palpation. No swelling bilaterally. No tenderness bilaterally. Motor strength is intact. Range of motion pain-free and unlimited. Feet: Diabetic ulcer left second toe: Initial evaluation there is a central eschar with loosening of the borders and scant underlying purulent drainage as well as sloughing of the hyperkeratotic tissue to the distal aspect of the toe. Following wound debridement bed is subcutaneous tissue with a small central area that probes to either periosteum or bone of the distal phalanx. Results & Data Vital Signs (Past 12 Hours) Vital Signs Temp Pulse Resp BP Pulse Ox O2 Del Method 03/02/25 15:55 98 03/02/25 15:30 67 18 151/74 H 98 03/02/25 15:00 68 18 125/76 95 03/02/25 14:30 74 18 138/66 92 03/02/25 14:01 74 18 136/79 93 03/02/25 13:59 70 03/02/25 13:27 36.3 C L 76 20 150/75 H 95 Room Air Laboratory Results Culture left second toe: Pending Diagnostic Findings X-ray left foot 3 views 11/30/2024: XR toe(s) LT min 2V CLINICAL HISTORY: l 2nd ?osteo COMPARISON: None FINDINGS: No fracture or dislocation seen at the second through fifth toes. No evidence of osteomyelitis seen. IMPRESSION: No osteomyelitis seen. PG Care Time/CCT Total # of Minutes Spent Total Time Spent with Patient: Total time spent is greater than 50% in coordination of care (as documented) at patient's floor/unit and/or counseling patient: Coding Level of Care Code 05010 INT INP/OBS CARE 2/55MIN Diagnoses Osteomyelitis of second toe of left foot M86.9 Cellulitis of second toe of left foot L03.032
[2025-03-02] MEDS ORDERED: DEXTROSE 50% 50 ML SYRINGE IV PRN (18:32)
[2025-03-02] MEDS ORDERED: ALBUTEROL HFA 8 GM INHALER INH PRN (18:32)
[2025-03-02] MEDS ORDERED: GLUCOSE 10 TAB/TUBE PO PRN (18:32)
[2025-03-02] MEDS ORDERED: GLUCOSE 40% GEL 15 GM TUBE PO PRN (18:32)
[2025-03-02] MEDS ORDERED: CARBOHYDRATES FOR HYPOGLYCEMIA PO PRN (18:32)
[2025-03-02] MEDS ORDERED: ALUMINUM/MAGNESIUM SUSP 30 ML UDC PO PRN (18:32)
[2025-03-02] MEDS ORDERED: GLUCAGON FOR INJ 1 MG VIAL SQ PRN (18:32)
[2025-03-02] MEDS ORDERED: ACETAMINOPHEN 325 MG TAB PO PRN (18:32)
--- NOTE | 2025-03-02 19:49 | Ultrasound Report ---
Exam: Bilateral lower extremity resting ankle brachial indices. Comparison study: None. Clinical history: Diabetic foot infection. Technique: Bilateral lower extremity resting ankle brachial indices obtained. Findings: Right: Arm: Not obtained. PT at ankle: 204 DP at foot: 198 LORRAINE: 1.32 Left: Arm: 155 PT at ankle: 183 DP at foot: 156 LORRAINE: 1.18 Impression: Right ankle-brachial index 1.32. Left ankle-brachial index 1.18. Guidelines: LOR[facility]INE Diagnostic Criteria (Based on criteria published in Circulation 2011; 124: 4601-2884): > 1.4: Non compressible 1.00 - 1.40: Normal 0.91 - 0.99: Borderline At or below 0.90: Abnormal L[facility]INE Diagnostic Criteria (Based on ACC/AHA guideline 2008): >/=1.3 - non compressible vessels 1.00 -1.29 - Normal 0.91 - 0.99 - Borderline 0.41 - 0.90 - Mild to moderate PAD 0.00 - 0.40 - Severe PAD Electronically signed by Dm Rockwell 03-02-2025 7:49 PM
[2025-03-02] MEDS: PHENYTOIN SODIUM ER 100 MG CAP PO SCH (22:14)
[2025-03-02] MEDS: HEPARIN SOD 5,000 UNIT/0.5 ML VIAL SQ SCH (22:15)
[2025-03-02] MEDS: busPIRone 15 MG TAB PO SCH (22:15)
[2025-03-02] MEDS: metroNIDAZOLE 500 MG/100 ML BAG IV SCH (22:21)
[2025-03-02] MEDS: INSULIN ASPART PER UNIT CHARGE SC SCH (22:29)
[2025-03-03] MEDS ORDERED: Nursing to Pharmacy Communication SCH (02:30)
[2025-03-03 07:08] LABS: Anion Gap 12 (3-11); Blood Urea Nitrogen 17 mg/dl (6-23); Calcium 9.4 mg/dl (8.6-10.3); Carbon Dioxide 23 mmol/L (21-32); Chloride 103 mmol/L (98-107); Creatinine Clr Calc Pharmacy 93.5 ml/min; Glucose 104 mg/dl (70-99(Fasting)); Sodium 138 mmol/L (136-145)
[2025-03-03 07:26] LABS: Hemoglobin A1C 6.0 % (4.5-5.6)
[2025-03-03] MEDS: ASPIRIN 81 MG ECTAB PO SCH (08:06)
[2025-03-03] MEDS: ROSUVASTATIN CALCIUM 20 MG TAB PO SCH (08:07)
[2025-03-03] MEDS: POLYETHYLENE (MIRALAX) 17 GM PACK PO SCH (08:11)
--- NOTE | 2025-03-03 10:44 | Hospitalist Progress Note ---
Date of Service March 03, 2025 Assessment & Plan (1) 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: Plan: With cellulitis of the toe (2) Cellulitis of foot associated with diabetes mellitus: (3) Diabetes mellitus type 2, noninsulin dependent: (4) COPD (chronic obstructive pulmonary disease): (5) Diabetic peripheral neuropathy: (6) Cerebrovascular disease: (7) Coronary artery disease: (8) Major depressive disorder: (9) Generalized anxiety disorder: Plan Patient 69-year-old gentleman with known diabetes type 2 [id number], CVA on ASA, and significant peripheral neuropathy presents with left second toe ulceration, cellulitis and foot cellulitis. #Left Second Toe Osteomyelitis -Podiatry concerned for OM -Likely secondary to his significant neuropathy -Reviewed LORRAINE, low suspicion for PAD -S/p bedside debridement on 03/02 -No history of MRSA or PSA Plan -Continue empiric CTX and flagyl -Should he develop fever, worsening leukocytosis, consider escalation of abx -F/u bedside wound culture -Tentatively planned for amputation on wednesday -Holding home ASA for now #Pre op evaluation -METS >3 -RCRI: 1 (prior stroke) -Further testing unlikely to reduce surgical risk, proceed with surgery if indicated #NIDDM -Not on insulin at home -SSI BGM ACHS #History of CVA -With residual L leg weakness, difficulty speaking -On ASA, statin at home -Holding ASA until after surgery, resume LIDIA #COPD -Stable. not in exacerbation -No home O2 #HTN -Stable, continue home norvasc and lisinopril #Depression -Continue home psych regimen I spent a total of 51 minutes coordinating, documenting, and providing care for this patient excluding time spent in the performance of separately billed services. This included personally reviewing all current laboratories and imaging studies, medical reconciliation, outpatient chart review and discussion with specialists Admission and Anticipated Discharge Date Admission Date: March 02, 2025 Subjective Feeling well today. Patient denies F/C, CP, palpitations, SOB, dyspnea, abd pain, N/V/D Physical Exam Physical Exam: Vitals and labs reviewed General: Well appearing, NAD HEENT: EOMI, PERRLA Neck: Supple Cardiac: RRR no rubs gallops or murmurs Lungs: CTA no rhonchi wheezing or rales Abd: S NT ND BS positive : no ho MSK: Full ROM. No obvious deformities Ext: No Edema cyanosis Skin: Warm, Dry Neuro: AOx3 at baseline slow speech. leg weakness from prior stroke Psych: Normal Mood Results & Data Results & Data Vital Signs (Past 12 Hours) Vital Signs Temp Pulse Resp BP Pulse Ox O2 Del Method 03/03/25 07:06 36.5 C 66 18 135/75 97 Room Air 03/03/25 00:18 36.4 C L 60 16 161/83 H 96 Room Air Laboratory Results Abnormal lab results 03/02/25 03/02/25 03/03/25 Range/Units 13:59 21:04 06:11 Hgb 13.1 L (14.0-18.0) g/dl Hct 40.0 L (42.0-52.0) % MPV 9.2 L (9.4-12.4) fL Neut # (Auto) 6.91 H (1.40-6.50) K/uL Gilliam # (Auto) 1.31 H (0.11-0.59) K/uL Anion Gap 12 H (3-11) BUN/Creatinine Ratio 23.8 H (10-20) Glucose 106 H 104 H (70-99(Fasting)) mg/dl POC Glucose 134 H (70-99) mg/dl Hemoglobin A1c 6.0 H (4.5-5.6) % Alkaline Phosphatase 118 H (34-104) U/L 03/03/25 Range/Units 07:02 Hgb (14.0-18.0) g/dl Hct (42.0-52.0) % MPV (9.4-12.4) fL Neut # (Auto) (1.40-6.50) K/uL Gilliam # (Auto) (0.11-0.59) K/uL Anion Gap (3-11) BUN/Creatinine Ratio (10-20) Glucose (70-99(Fasting)) mg/dl POC Glucose 106 H (70-99) mg/dl Hemoglobin A1c (4.5-5.6) % Alkaline Phosphatase (34-104) U/L (1) 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 Laterality: left Non-pressure ulcer stage: unspecified non-pressure ulcer stage Qualified Code(s): E11.621 - Type 2 diabetes mellitus with foot ulcer; L97.529 - Non-pressure chronic ulcer of other part of left foot with unspecified severity
[2025-03-04 06:19] LABS: Hematocrit (blood only) 40.6 % (42.0-52.0); Hemoglobin 13.3 g/dl (14.0-18.0); Mean Corpuscular Hemoglobin 27.3 pg (25.0-34.0); Mean Corpuscular Volume 83.2 fL (80.0-100.0); Platelet Count 264 K/uL (130-400); RDW Standard Deviation 38.1 fL (36.4-46.3); Red Blood Count 4.88 M/uL (4.70-6.10); White Blood Count 8.14 K/ul (4.8-10.8)
[2025-03-04 06:36] LABS: Anion Gap 9.0 (3-11); Blood Urea Nitrogen 16.0 mg/dl (6-23); Calcium 9.4 mg/dl (8.6-10.3); Carbon Dioxide 24.0 mmol/L (21-32); Chloride 105.0 mmol/L (98-107); Creatinine Clr Calc Pharmacy 101.4 ml/min; Glucose 105.0 mg/dl (70-99(Fasting)); Potassium 4.0 mmol/L (3.5-5.1); Sodium 138.0 mmol/L (136-145)
--- NOTE | 2025-03-04 09:16 | Hospitalist Progress Note ---
Date of Service March 04, 2025 Assessment & Plan (1) 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: Plan: With cellulitis of the toe (2) Cellulitis of foot associated with diabetes mellitus: (3) Diabetes mellitus type 2, noninsulin dependent: (4) COPD (chronic obstructive pulmonary disease): (5) Diabetic peripheral neuropathy: (6) Cerebrovascular disease: (7) Coronary artery disease: (8) Major depressive disorder: (9) Generalized anxiety disorder: Plan Patient 69-year-old gentleman with known diabetes type 2 [id number], CVA on ASA, and significant peripheral neuropathy presents with left second toe ulceration, cellulitis and foot cellulitis. #Left Second Toe Osteomyelitis -Podiatry concerned for OM -Likely secondary to his significant neuropathy -Reviewed LORRAINE, low suspicion for PAD -S/p bedside debridement on 03/02 -No history of MRSA or PSA Plan -Continue empiric CTX and flagyl -Should he develop fever, worsening leukocytosis, consider escalation of abx -F/u bedside wound culture, Pending -Follow CBC, renal function while on abx -Tentatively planned for amputation on wednesday. NPO after MN -Holding home ASA for now #Pre op evaluation -METS >3 -RCRI: 1 (prior stroke) -Further testing unlikely to reduce surgical risk, proceed with surgery if indicated #NIDDM -Not on insulin at home -SSI BGM ACHS #History of CVA -With residual L leg weakness, difficulty speaking -On ASA, statin at home -Holding ASA until after surgery, resume LIDIA #COPD -Stable. not in exacerbation -No home O2 #HTN -Stable, continue home norvasc and lisinopril #Depression -Continue home psych regimen I spent a total of 50 minutes coordinating, documenting, and providing care for this patient excluding time spent in the performance of separately billed s ervices. This included personally reviewing all current laboratories and imaging studies, medical reconciliation, outpatient chart review and discussion with specialists Admission and Anticipated Discharge Date Admission Date: March 02, 2025 Subjective Feeling well today. Patient denies F/C, CP, palpitations, SOB, dyspnea, abd pain, N/V/D Physical Exam Physical Exam: Vitals and labs reviewed General: Well appearing, NAD HEENT: EOMI, PERRLA Neck: Supple Cardiac: RRR no rubs gallops or murmurs Lungs: CTA no rhonchi wheezing or rales Abd: S NT ND BS positive : no ho MSK: Full ROM. No obvious deformities Ext: No Edema cyanosis Skin: Warm, Dry Neuro: AOx3 at baseline slow speech. leg weakness from prior stroke Psych: Normal Mood Results & Data Results & Data Vital Signs (Past 12 Hours) Vital Signs Temp Pulse Resp BP Pulse Ox O2 Del Method 03/04/25 07:50 36.5 C 70 18 124/77 96 Room Air 03/03/25 23:50 36.6 C 65 18 142/81 H 97 Room Air Laboratory Results Abnormal lab results 03/03/25 03/04/25 03/04/25 Range/Units 16:27 05:43 07:47 Hgb 13.3 L (14.0-18.0) g/dl Hct 40.6 L (42.0-52.0) % MPV 9.2 L (9.4-12.4) fL Glucose 105 H (70-99(Fasting)) mg/dl POC Glucose 108 H 111 H (70-99) mg/dl (1) 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 Laterality: left Non-pressure ulcer stage: unspecified non-pressure ulcer stage Qualified Code(s): E11.621 - Type 2 diabetes mellitus with foot ulcer; L97.529 - Non-pressure chronic ulcer of other part of left foot with unspecified severity
[2025-03-04] MEDS ORDERED: SODIUM CHLORIDE 0.65% NA SOLN 45 ML (OCEAN) PRN (14:31)
[2025-03-04] MEDS: ONDANSETRON INJ 2 MG/ML 2 ML VIAL IV PRN (17:05)
[2025-03-04] MEDS: PROMETHAZINE 6.25 MG/50.25 ML BAG IV STA (22:27)
[2025-03-05] MEDS: INSULIN ASPART PER UNIT CHARGE SC SCH ×2 (06:22→21:51)
[2025-03-05] MEDS ORDERED: Nursing to Pharmacy Communication SCH ×2 (06:30→18:15)
[2025-03-05 06:33] LABS: Hematocrit (blood only) 39.9 % (42.0-52.0); Hemoglobin 13.0 g/dl (14.0-18.0); Mean Corpuscular Hemoglobin 27.2 pg (25.0-34.0); Mean Corpuscular Volume 83.5 fL (80.0-100.0); Platelet Count 258 K/uL (130-400); RDW Standard Deviation 38.5 fL (36.4-46.3); Red Blood Count 4.78 M/uL (4.70-6.10); White Blood Count 7.71 K/ul (4.8-10.8)
[2025-03-05 07:09] LABS: Anion Gap 9.0 (3-11); Blood Urea Nitrogen 16.0 mg/dl (6-23); Calcium 9.5 mg/dl (8.6-10.3); Carbon Dioxide 26.0 mmol/L (21-32); Chloride 104.0 mmol/L (98-107); Creatinine Clr Calc Pharmacy 93.5 ml/min; Glucose 95.0 mg/dl (70-99(Fasting)); Potassium 4.0 mmol/L (3.5-5.1); Sodium 139.0 mmol/L (136-145)
--- NOTE | 2025-03-05 07:25 | Podiatry Progress Note ---
Date of Service March 05, 2025 Assessment & Plan (1) Osteomyelitis of second toe of left foot: (2) Cellulitis of second toe of left foot: Plan Persistent frankly exposed bone to the distal phalanx of the left second toe. Plan for amputation of left second toe later today. We discussed alternatives to surgery including flexor tenotomy to the left second toe with ongoing wound care, offloading and cam boot and continued IV antibiotics versus amputation. The patient would like to proceed with amputation of the left second digit. Written informed consent reviewed with patient including risks, benefits, alternatives and risks to the alternatives. All questions answered. Consent is signed and witnessed. Left foot marked for laterality. Significant reduction in erythema and edema to the left second toe over the past 48 hours. At this point it is much more reasonable to move forward with amputation of the left second toe with anticipated primary closure of amputation site. Following amputation patient will need to minimize weightbearing in postop shoe for the next 2 weeks left foot. Anticipate surgical cure for osteomyelitis with amputation of the digit. Will comment in op report but patient likely safe to discharge day after surgery on p.o. antibiotics for continued treatment of local soft tissue infection. Admission and Anticipated Discharge Date Admission Date: March 02, 2025 Subjective Patient seen resting comfortably in hospital bed. Denies pain in the left foot. Denies nausea vomiting fever chills over the weekend. Reviewed written informed consent for amputation of the left second toe with patient. All questions answered. Consent signed and witnessed. Review of Systems Review of Systems: Denies nausea, vomiting, fever, chills, shortness of breath, chest pain, pain in the left foot. All other systems reviewed and negative unless otherwise stated in HPI Physical Exam Physical Exam: Const: Appears well developed and well nourished. No signs of acute distress present. CV: Extremities: No cyanosis or edema. Capillary refill time is less than 2 seconds all digits of the bilateral foot. Posterior tibial and dorsalis pedis pulses are lightly palpable bilateral. Neuro: Loss of protective sensation bilateral foot Psych: Mood/Affect: Mood is normal. Affect is normal. Cognition: Orientation is intact to person, place and time. Focused lower extremity musculoskeletal exam: Leg: No pain with compression of the calf muscle. Ankles: Normal to inspection and palpation. No swelling bilaterally. No tenderness bilaterally. Motor strength is intact. Range of motion pain-free and unlimited. Feet: Diabetic ulcer left second toe: Significant reduction in erythema and edema to the left second toe specifically at the base of the second toe with return of relaxed skin tension lines and resolution of erythema at the base of the digit and location of anticipated wound closure. No active drainage from the wound. Persistently exposed bone of the distal phalanx. Results & Data Results & Data Vital Signs (Past 12 Hours) Vital Signs Temp Pulse Resp BP Pulse Ox O2 Del Method 03/04/25 23:00 36.9 C 18 96 Room Air 03/04/25 22:13 70 147/69 H Diagnostic Findings LORRAINE 03/02/2025: Impression: Right ankle-brachial index 1.32. Left ankle-brachial index 1.18. Coding Level of Care Code 81381 SUB INP/OBS CARE 235MIN (57 - DECISION FOR SURGERY) Diagnoses Osteomyelitis of second toe of left foot M86.9 Cellulitis of second toe of left foot L03.032
--- NOTE | 2025-03-05 09:19 | Hospitalist Progress Note ---
Date of Service March 05, 2025 Assessment & Plan (1) 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: Plan: With cellulitis of the toe (2) Cellulitis of foot associated with diabetes mellitus: (3) Diabetes mellitus type 2, noninsulin dependent: (4) COPD (chronic obstructive pulmonary disease): (5) Diabetic peripheral neuropathy: (6) Cerebrovascular disease: (7) Coronary artery disease: (8) Major depressive disorder: (9) Generalized anxiety disorder: Plan Patient 69-year-old gentleman with known diabetes type 2 [id number], CVA on ASA, and significant peripheral neuropathy presents with left second toe ulceration, cellulitis and foot cellulitis. #Left Second Toe Osteomyelitis -Podiatry concerned for OM -Likely secondary to his significant neuropathy -Reviewed LORRAINE, low suspicion for PAD -S/p bedside debridement on 03/02 -No history of MRSA or PSA -Bedside wound culture growing normal skin zonia Plan -Continue empiric CTX and flagyl -Follow CBC, renal function while on abx -For toe amputation today -Holding home ASA for now #Pre op evaluation -METS >3 -RCRI: 1 (prior stroke) -Further testing unlikely to reduce surgical risk, proceed with surgery if in dicated #NIDDM -Not on insulin at home -SSI BGM ACHS #History of CVA -With residual L leg weakness, difficulty speaking -On ASA, statin at home -Holding ASA until after surgery, resume LIDIA #COPD -Stable. not in exacerbation -No home O2 #HTN -Stable, continue home norvasc and lisinopril #Depression -Continue home psych regimen I spent a total of 53 minutes coordinating, documenting, and providing care for this patient excluding time spent in the performance of separately billed services. This included personally reviewing all current laboratories and imaging studies, medical reconciliation, outpatient chart review and discussion with specialists Admission and Anticipated Discharge Date Admission Date: March 02, 2025 Subjective Patient seen resting comfortably in hospital bed. Feeling well and eager for surgery today. Patient denies F/C, CP, palpitations, SOB, dyspnea, abd pain, N/V/D Physical Exam Physical Exam: Vitals and labs reviewed General: Well appearing, NAD HEENT: EOMI, PERRLA Neck: Supple Cardiac: RRR no rubs gallops or murmurs Lungs: CTA no rhonchi wheezing or rales Abd: S NT ND BS positive : no ho MSK: Full ROM. No obvious deformities Ext: No Edema cyanosis Skin: Warm, Dry Neuro: AOx3 at baseline slow speech. leg weakness from prior stroke Psych: Normal Mood Results & Data Results & Data Vital Signs (Past 12 Hours) Vital Signs Temp Pulse Resp BP Pulse Ox O2 Del Method 03/05/25 07:35 36.6 C 72 18 119/72 95 Room Air 03/04/25 23:00 36.9 C 18 96 Room Air 03/04/25 22:13 70 147/69 H Laboratory Results Abnormal lab results 03/04/25 03/04/25 03/05/25 Range/Units 16:11 20:43 06:04 Hgb 13.0 L (14.0-18.0) g/dl Hct 39.9 L (42.0-52.0) % MPV 9.1 L (9.4-12.4) fL POC Glucose 114 H 116 H (70-99) mg/dl (1) 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 Laterality: left Non-pressure ulcer stage: unspecified non-pressure ulcer stage Qualified Code(s): E11.621 - Type 2 diabetes mellitus with foot ulcer; L97.529 - Non-pressure chronic ulcer of other part of left foot with unspecified severity
[2025-03-05] MEDS ORDERED: MIDAZOLAM HCL 1 MG/ML 2ML VIAL ONE (09:27)
[2025-03-05] MEDS ORDERED: ONDANSETRON INJ 2 MG/ML 2 ML VIAL ONE (09:28)
[2025-03-05] MEDS ORDERED: PROPOFOL IV EMULSION 10 MG/ML 20 ML VIAL IV ONE ×2 (09:29→09:30)
[2025-03-05] MEDS: LACTATED RINGER'S 1,000 ML IV SCH (09:31)
--- NOTE | 2025-03-05 09:34 | Anesthesiology Consultation ---
Date of Service March 05, 2025 History Surgery Operation Date: 03/05/25 07:00 Proposed Procedures p Left Second Toe Amputation - Heath Alvares DPM Height/Weight Height: 5 ft 10 in Weight: 106.9 kg Allergies Allergy/AdvReac Type Severity Reaction Status Date / Time No Known Allergies Allergy Verified 03/02/25 15:41 Medications Home Medications Medication Instructions Recorded Confirmed Last Taken buspirone 15 mg tablet 30 mg PO BID 05/19/22 03/02/25 03/02/25 08:00 cyclobenzaprine 10 mg tablet 10 mg PO BID 05/19/22 03/02/25 03/02/25 08:00 metformin 500 mg tablet 500 mg PO BIDM 05/19/22 03/02/25 03/02/25 08:00 omeprazole 40 mg capsule,delayed 40 mg PO BID 05/19/22 03/02/25 03/02/25 08:00 release phenytoin sodium extended 100 mg 300 mg PO AMHS 05/19/22 03/02/25 03/02/25 08:00 capsule aspirin 81 mg tablet,delayed 81 mg PO QAM #30 tabs 05/22/22 03/02/25 03/02/25 release albuterol sulfate 90 mcg/actuation 2 puff inhalation Q4H PRN 01/10/25 03/02/25 Unknown aerosol inhaler SOB/wheezing amlodipine 5 mg tablet 5 mg PO DAILY 01/10/25 03/02/25 03/02/25 aripiprazole 10 mg tablet 10 mg PO DAILY 01/10/25 03/02/25 03/02/25 desvenlafaxine succinate 100 mg 100 mg PO DAILY 01/10/25 03/02/25 03/02/25 tablet,extended release 24 hr lisinopril 40 mg tablet 40 mg PO DAILY 01/10/25 03/02/25 03/02/25 ondansetron 4 mg disintegrating 4 mg PO Q8H PRN n/v 01/10/25 03/02/25 Unknown tablet rosuvastatin 40 mg tablet 40 mg PO DAILY 01/10/25 03/02/25 03/02/25 semaglutide 2 mg/dose (8 mg/3 mL) 2 mg subcut WK 01/10/25 03/02/25 02/25/25 subcutaneous pen injector (Ozempic) acetaminophen 500 mg tablet 1,000 mg PO BID 03/02/25 03/02/25 03/02/25 08:00 (Tylenol Extra Strength) ammonium lactate 12 % topical cream 1 applic topical DIRECTED PRN 03/02/25 03/02/25 Unknown NEEDED ascorbic acid (vitamin C) 500 mg 500 mg PO DAILY 03/02/25 03/02/25 03/02/25 tablet (Vitamin C) coenzyme Q10 100 mg capsule 100 mg PO DAILY 03/02/25 03/02/25 03/02/25 (CoQ-10) meclizine 12.5 mg tablet 12.5 mg PO TID PRN Dizziness 03/02/25 03/02/25 Unknown mupirocin 2 % topical ointment 1 applic topical BID PRN APPLY TO 03/02/25 03/02/25 Unknown NOSTRILS Active Medications Generic Name Dose Route Start Last Admin Trade Name Freq PRN Reason Stop Dose Admin Amlodipine Besylate 5 mg 03/03/25 09:00 03/04/25 08:46 Amlodipine Besylate 5 Mg Tab PO 04/02/25 08:59 5 mg DAILY KEN Administration Aripiprazole 10 mg 03/03/25 09:00 03/04/25 08:46 Aripiprazole 10 Mg Tab PO 04/02/25 08:59 10 mg DAILY KEN Administration Buspirone HCl 30 mg 03/02/25 21:00 03/04/25 20:12 Buspirone 15 Mg Tab PO 04/01/25 20:59 30 mg BID KEN Administration Heparin Sodium (Porcine) 5,000 units 03/02/25 22:00 03/05/25 05:28 Heparin Sod 5,000 Unit/0.5 Ml Vial SQ 04/01/25 21:59 Not Given Q8 KEN Ceftriaxone Sodium 2,000 mg/ 70 mls @ 100 mls/hr 03/03/25 14:00 03/04/25 14:31 Dextrose IV 03/10/25 13:59 Infused Q24H KEN Infusion Protocol Metronidazole 500 mg in 100 mls @ 100 mls/hr 03/02/25 19:00 03/05/25 06:31 Flagyl IV 03/09/25 18:59 Infused Q8H [facility] Infusion Protocol Lactated Ringer's 1,000 mls @ 15 mls/hr 03/05/25 09:30 03/05/25 09:31 Lr IV 03/08/25 09:29 15 mls/hr .Q24H KEN Administration Insulin Aspart 0 units 03/05/25 06:20 03/05/25 06:22 Insulin Aspart Per Unit Charge SC 04/04/25 06:19 Not Given Q6 KEN Lisinopril 40 mg 03/03/25 09:00 03/04/25 08:46 Lisinopril 40 Mg Tab PO 04/02/25 08:59 40 mg DAILY KEN Administration Ondansetron HCl 4 mg 03/02/25 18:32 03/04/25 17:05 Ondansetron Inj 2 Mg/Ml 2 Ml Vial IV 04/01/25 18:31 4 mg Q6H PRN Administration Nausea Pantoprazole Sodium 40 mg 03/02/25 21:00 03/04/25 20:12 Pantoprazole 40 Mg Tab PO 04/01/25 20:59 40 mg BID KEN Administration Phenytoin Sodium 300 mg 03/02/25 21:00 03/04/25 20:13 Phenytoin Sodium Er 100 Mg Cap PO 04/01/25 20:59 300 mg AMHS KEN Administration Polyethylene Glycol 17 gm 03/03/25 09:00 03/04/25 08:46 Polyethylene (Miralax) 17 Gm Pack PO 04/02/25 08:59 Not Given DAILY KEN Rosuvastatin Calcium 40 mg 03/03/25 09:00 03/04/25 08:46 Rosuvastatin Calcium 20 Mg Tab PO 04/02/25 08:59 40 mg DAILY KEN Administration NPO Date Last Intake of Fluids: 03/04/25 Time Last Intake of Fluids: 18:00 Date Last Intake of Solids: 03/04/25 Time Last Intake of Solids: 18:00 Past Medical History Medical History Muscle cramping Depression with anxiety COPD (chronic obstructive pulmonary disease) History of CVA (cerebrovascular accident) HLD (hyperlipidemia) Diabetes mellitus, type II Vertebrobasilar artery stenosis Hypertension Syncope Vasovagal episode Vertigo Hx of multiple sclerosis Diabetes High blood pressure Past Surgical History Surgical History H/O knee surgery Social History Smoking Status: Former smoker Do You Dip or Chew Tobacco: No Hx Alcohol Use: Yes Alcohol type: beer, wine and hard liquor alcohol intake frequency: 0-2 drinks per day Hx Substance Use: No substance use type: does not use Physical Exam Vital Signs Last Vital Signs Temp 36.9 C 03/05/25 09:26 Pulse 71 03/05/25 09:26 Resp 20 03/05/25 09:26 BP 164/69 H 03/05/25 09:26 Pulse Ox 96 03/05/25 09:26 O2 Del Method Room Air 03/05/25 09:26 Testing Laboratory Results 03/05/25 06:04 03/05/25 06:04 Hemoglobin A1c 6.0 % (4.5-5.6) H 03/03/25 06:11 03/03/25 Unknown Gram Stain - Final Foot,Left Aerobic and Anaerobic Culture - Preliminary Low counts mixed probable skin microbiota. 03/05/25 03/05/25 09:23 06:11 POC Glucose 117 H 96 Data & Results Home Medications Medication Instructions Recorded Confirmed Type buspirone 15 mg tablet 30 mg PO BID 05/19/22 03/02/25 History cyclobenzaprine 10 mg tablet 10 mg PO BID 05/19/22 03/02/25 History metformin 500 mg tablet 500 mg PO BIDM 05/19/22 03/02/25 History omeprazole 40 mg capsule,delayed 40 mg PO BID 05/19/22 03/02/25 History release phenytoin sodium extended 100 mg 300 mg PO AMHS 05/19/22 03/02/25 History capsule aspirin 81 mg tablet,delayed 81 mg PO QAM #30 tabs 05/22/22 03/02/25 Rx release albuterol sulfate 90 mcg/actuation 2 puff inhalation Q4H PRN 01/10/25 03/02/25 History aerosol inhaler SOB/wheezing amlodipine 5 mg tablet 5 mg PO DAILY 01/10/25 03/02/25 History aripiprazole 10 mg tablet 10 mg PO DAILY 01/10/25 03/02/25 History desvenlafaxine succinate 100 mg 100 mg PO DAILY 01/10/25 03/02/25 History tablet,extended release 24 hr lisinopril 40 mg tablet 40 mg PO DAILY 01/10/25 03/02/25 History ondansetron 4 mg disintegrating 4 mg PO Q8H PRN n/v 01/10/25 03/02/25 History tablet rosuvastatin 40 mg tablet 40 mg PO DAILY 01/10/25 03/02/25 History semaglutide 2 mg/dose (8 mg/3 mL) 2 mg subcut WK 01/10/25 03/02/25 History subcutaneous pen injector (Ozempic) acetaminophen 500 mg tablet 1,000 mg PO BID 03/02/25 03/02/25 History (Tylenol Extra Strength) ammonium lactate 12 % topical cream 1 applic topical DIRECTED PRN 03/02/25 03/02/25 History NEEDED ascorbic acid (vitamin C) 500 mg 500 mg PO DAILY 03/02/25 03/02/25 History tablet (Vitamin C) coenzyme Q10 100 mg capsule 100 mg PO DAILY 03/02/25 03/02/25 History (CoQ-10) meclizine 12.5 mg tablet 12.5 mg PO TID PRN Dizziness 03/02/25 03/02/25 History mupirocin 2 % topical ointment 1 applic topical BID PRN APPLY TO 03/02/25 03/02/25 History NOSTRILS ECOG/Weight/Vitals Weight: 106.9 kg Vitals Signs: Vital Signs Temp Pulse Pulse Resp BP BP Pulse Ox 03/05/25 09:26 36.9 C 71 20 164/69 H 96 03/05/25 07:35 36.6 C 72 18 119/72 95 03/04/25 23:00 36.9 C 18 96 03/04/25 22:13 70 147/69 H O2 Del Method 03/05/25 09:26 Room Air 03/05/25 07:35 Room Air 03/04/25 23:00 Room Air 03/04/25 22:13 Laboratory Values 03/05/25 03/05/25 03/05/25 Range/Units 09:23 06:11 06:04 WBC 7.71 (4.8-10.8) K/ul RBC 4.78 (4.70-6.10) M/uL Hgb 13.0 L (14.0-18.0) g/dl Hct 39.9 L (42.0-52.0) % MCV 83.5 (80.0-100.0) fL MCH 27.2 (25.0-34.0) pg MCHC 32.6 (32.0-36.0) g/dL RDW Std Deviation 38.5 (36.4-46.3) fL RDW Coeff of Abraham 12.8 (11.5-14.5) % Plt Count 258 (130-400) K/uL MPV 9.1 L (9.4-12.4) fL Immature Gran % (Auto) % Neut % (Auto) % Lymph % (Auto) % Williamson % (Auto) % Eos % (Auto) % Baso % (Auto) % Neut # (Auto) (1.40-6.50) K/uL Lymph # (Auto) (1.20-3.40) K/uL Williamson # (Auto) (0.11-0.59) K/uL Eos # (Auto) (0.00-0.50) K/uL Baso # (Auto) (0.00-0.20) K/uL Immature Gran # (Auto) (0.01-0.20) K/uL Sodium 139 (136-145) mmol/L Potassium 4.0 (3.5-5.1) mmol/L Chloride 104 (98-107) mmol/L Carbon Dioxide 26 (21-32) mmol/L Anion Gap 9 (3-11) BUN 16 (6-23) mg/dl Creatinine 0.90 (0.6-1.4) mg/dl Est Cr Clr Drug Dosing 93.5 ml/min eGFR 91.88 BUN/Creatinine Ratio 17.8 (10-20) Glucose 95 (70-99(Fasting)) mg/dl POC Glucose 117 H 96 (70-99) mg/dl Estimat Average Glucose mg/dl Hemoglobin A1c (4.5-5.6) % Calcium 9.5 (8.6-10.3) mg/dl Total Bilirubin (0.2-1.0) mg/dl AST (13-39) U/L ALT (7-52) U/L Alkaline Phosphatase (34-104) U/L Total Protein (6.0-8.3) gm/dl Albumin (3.4-5.0) gm/dl Globulin (2.5-4.0) gm/dl Albumin/Globulin Ratio (0.9-2) Lipase (11-82) U/L 03/04/25 03/04/25 03/04/25 Range/Units 20:43 16:11 11:17 WBC (4.8-10.8) K/ul RBC (4.70-6.10) M/uL Hgb (14.0-18.0) g/dl Hct (42.0-52.0) % MCV (80.0-100.0) fL MCH (25.0-34.0) pg MCHC (32.0-36.0) g/dL RDW Std Deviation (36.4-46.3) fL RDW Coeff of Abraham (11.5-14.5) % Plt Count (130-400) K/uL MPV (9.4-12.4) fL Immature Gran % (Auto) % Neut % (Auto) % Lymph % (Auto) % Williamson % (Auto) % Eos % (Auto) % Baso % (Auto) % Neut # (Auto) (1.40-6.50) K/uL Lymph # (Auto) (1.20-3.40) K/uL Williamson # (Auto) (0.11-0.59) K/uL Eos # (Auto) (0.00-0.50) K/uL Baso # (Auto) (0.00-0.20) K/uL Immature Gran # (Auto) (0.01-0.20) K/uL Sodium (136-145) mmol/L Potassium (3.5-5.1) mmol/L Chloride (98-107) mmol/L Carbon Dioxide (21-32) mmol/L Anion Gap (3-11) BUN (6-23) mg/dl Creatinine (0.6-1.4) mg/dl Est Cr Clr Drug Dosing ml/min eGFR BUN/Creatinine Ratio (10-20) Glucose (70-99(Fasting)) mg/dl POC Glucose 116 H 114 H 85 (70-99) mg/dl Estimat Average Glucose mg/dl Hemoglobin A1c (4.5-5.6) % Calcium (8.6-10.3) mg/dl Total Bilirubin (0.2-1.0) mg/dl AST (13-39) U/L ALT (7-52) U/L Alkaline Phosphatase (34-104) U/L Total Protein (6.0-8.3) gm/dl Albumin (3.4-5.0) gm/dl Globulin (2.5-4.0) gm/dl Albumin/Globulin Ratio (0.9-2) Lipase (11-82) U/L 03/04/25 03/04/25 03/03/25 Range/Units 07:47 05:43 20:27 WBC 8.14 (4.8-10.8) K/ul RBC 4.88 (4.70-6.10) M/uL Hgb 13.3 L (14.0-18.0) g/dl Hct 40.6 L (42.0-52.0) % MCV 83.2 (80.0-100.0) fL MCH 27.3 (25.0-34.0) pg MCHC 32.8 (32.0-36.0) g/dL RDW Std Deviation 38.1 (36.4-46.3) fL RDW Coeff of Abraham 12.6 (11.5-14.5) % Plt Count 264 (130-400) K/uL MPV 9.2 L (9.4-12.4) fL Immature Gran % (Auto) % Neut % (Auto) % Lymph % (Auto) % Williamson % (Auto) % Eos % (Auto) % Baso % (Auto) % Neut # (Auto) (1.40-6.50) K/uL Lymph # (Auto) (1.20-3.40) K/uL Williamson # (Auto) (0.11-0.59) K/uL Eos # (Auto) (0.00-0.50) K/uL Baso # (Auto) (0.00-0.20) K/uL Immature Gran # (Auto) (0.01-0.20) K/uL Sodium 138 (136-145) mmol/L Potassium 4.0 (3.5-5.1) mmol/L Chloride 105 (98-107) mmol/L Carbon Dioxide 24 (21-32) mmol/L Anion Gap 9 (3-11) BUN 16 (6-23) mg/dl Creatinine 0.83 (0.6-1.4) mg/dl Est Cr Clr Drug Dosing 101.4 ml/min eGFR 94.15 BUN/Creatinine Ratio 19.3 (10-20) Glucose 105 H (70-99(Fasting)) mg/dl POC Glucose 111 H 94 (70-99) mg/dl Estimat Average Glucose mg/dl Hemoglobin A1c (4.5-5.6) % Calcium 9.4 (8.6-10.3) mg/dl Total Bilirubin (0.2-1.0) mg/dl AST (13-39) U/L ALT (7-52) U/L Alkaline Phosphatase (34-104) U/L Total Protein (6.0-8.3) gm/dl Albumin (3.4-5.0) gm/dl Globulin (2.5-4.0) gm/dl Albumin/Globulin Ratio (0.9-2) Lipase (11-82) U/L 03/03/25 03/03/25 03/03/25 Range/Units 16:27 11:19 07:30 WBC (4.8-10.8) K/ul RBC (4.70-6.10) M/uL Hgb (14.0-18.0) g/dl Hct (42.0-52.0) % MCV (80.0-100.0) fL MCH (25.0-34.0) pg MCHC (32.0-36.0) g/dL RDW Std Deviation (36.4-46.3) fL RDW Coeff of Abraham (11.5-14.5) % Plt Count (130-400) K/uL MPV (9.4-12.4) fL Immature Gran % (Auto) % Neut % (Auto) % Lymph % (Auto) % Williamson % (Auto) % Eos % (Auto) % Baso % (Auto) % Neut # (Auto) (1.40-6.50) K/uL Lymph # (Auto) (1.20-3.40) K/uL Williamson # (Auto) (0.11-0.59) K/uL Eos # (Auto) (0.00-0.50) K/uL Baso # (Auto) (0.00-0.20) K/uL Immature Gran # (Auto) (0.01-0.20) K/uL Sodium (136-145) mmol/L Potassium 4.2 (3.5-5.1) mmol/L Chloride (98-107) mmol/L Carbon Dioxide (21-32) mmol/L Anion Gap (3-11) BUN (6-23) mg/dl Creatinine (0.6-1.4) mg/dl Est Cr Clr Drug Dosing ml/min eGFR BUN/Creatinine Ratio (10-20) Glucose (70-99(Fasting)) mg/dl POC Glucose 108 H 99 (70-99) mg/dl Estimat Average Glucose mg/dl Hemoglobin A1c (4.5-5.6) % Calcium (8.6-10.3) mg/dl Total Bilirubin (0.2-1.0) mg/dl AST (13-39) U/L ALT (7-52) U/L Alkaline Phosphatase (34-104) U/L Total Protein (6.0-8.3) gm/dl Albumin (3.4-5.0) gm/dl Globulin (2.5-4.0) gm/dl Albumin/Globulin Ratio (0.9-2) Lipase (11-82) U/L 03/03/25 03/03/25 03/02/25 Range/Units 07:02 06:11 21:04 WBC (4.8-10.8) K/ul RBC (4.70-6.10) M/uL Hgb (14.0-18.0) g/dl Hct (42.0-52.0) % MCV (80.0-100.0) fL MCH (25.0-34.0) pg MCHC (32.0-36.0) g/dL RDW Std Deviation (36.4-46.3) fL RDW Coeff of Abraham (11.5-14.5) % Plt Count (130-400) K/uL MPV (9.4-12.4) fL Immature Gran % (Auto) % Neut % (Auto) % Lymph % (Auto) % Williamson % (Auto) % Eos % (Auto) % Baso % (Auto) % Neut # (Auto) (1.40-6.50) K/uL Lymph # (Auto) (1.20-3.40) K/uL Williamson # (Auto) (0.11-0.59) K/uL Eos # (Auto) (0.00-0.50) K/uL Baso # (Auto) (0.00-0.20) K/uL Immature Gran # (Auto) (0.01-0.20) K/uL Sodium 138 (136-145) mmol/L Potassium TNP (3.5-5.1) mmol/L Chloride 103 (98-107) mmol/L Carbon Dioxide 23 (21-32) mmol/L Anion Gap 12 H (3-11) BUN 17 (6-23) mg/dl Creatinine 0.90 (0.6-1.4) mg/dl Est Cr Clr Drug Dosing 93.5 ml/min eGFR 91.88 BUN/Creatinine Ratio 18.9 (10-20) Glucose 104 H (70-99(Fasting)) mg/dl POC Glucose 106 H 134 H (70-99) mg/dl Estimat Average Glucose 126 mg/dl Hemoglobin A1c 6.0 H (4.5-5.6) % Calcium 9.4 (8.6-10.3) mg/dl Total Bilirubin (0.2-1.0) mg/dl AST (13-39) U/L ALT (7-52) U/L Alkaline Phosphatase (34-104) U/L Total Protein (6.0-8.3) gm/dl Albumin (3.4-5.0) gm/dl Globulin (2.5-4.0) gm/dl Albumin/Globulin Ratio (0.9-2) Lipase (11-82) U/L 03/02/25 Range/Units 13:59 WBC 10.61 (4.8-10.8) K/ul RBC 4.78 (4.70-6.10) M/uL Hgb 13.1 L (14.0-18.0) g/dl Hct 40.0 L (42.0-52.0) % MCV 83.7 (80.0-100.0) fL MCH 27.4 (25.0-34.0) pg MCHC 32.8 (32.0-36.0) g/dL RDW Std Deviation 38.7 (36.4-46.3) fL RDW Coeff of Abraham 12.8 (11.5-14.5) % Plt Count 260 (130-400) K/uL MPV 9.2 L (9.4-12.4) fL Immature Gran % (Auto) 0.3 % Neut % (Auto) 65.1 % Lymph % (Auto) 19.6 % Williamson % (Auto) 12.3 % Eos % (Auto) 2.4 % Baso % (Auto) 0.3 % Neut # (Auto) 6.91 H (1.40-6.50) K/uL Lymph # (Auto) 2.08 (1.20-3.40) K/uL Williamson # (Auto) 1.31 H (0.11-0.59) K/uL Eos # (Auto) 0.25 (0.00-0.50) K/uL Baso # (Auto) 0.03 (0.00-0.20) K/uL Immature Gran # (Auto) 0.03 (0.01-0.20) K/uL Sodium 138 (136-145) mmol/L Potassium 4.5 (3.5-5.1) mmol/L Chloride 105 (98-107) mmol/L Carbon Dioxide 23 (21-32) mmol/L Anion Gap 10 (3-11) BUN 20 (6-23) mg/dl Creatinine 0.84 (0.6-1.4) mg/dl Est Cr Clr Drug Dosing 100.2 ml/min eGFR 93.81 BUN/Creatinine Ratio 23.8 H (10-20) Glucose 106 H (70-99(Fasting)) mg/dl POC Glucose (70-99) mg/dl Estimat Average Glucose mg/dl Hemoglobin A1c (4.5-5.6) % Calcium 9.5 (8.6-10.3) mg/dl Total Bilirubin 0.3 (0.2-1.0) mg/dl AST 17 (13-39) U/L ALT 17 (7-52) U/L Alkaline Phosphatase 118 H (34-104) U/L Total Protein 7.6 (6.0-8.3) gm/dl Albumin 3.9 (3.4-5.0) gm/dl Globulin 3.7 (2.5-4.0) gm/dl Albumin/Globulin Ratio 1.1 (0.9-2) Lipase 44 (11-82) U/L Echcardiogram Report Echocardiogram Report echo 05/2022 EF 60%
[2025-03-05] MEDS ORDERED: HYDROmorphone INJ 2 MG/ML SYR/VIAL IV PRN (09:51)
[2025-03-05] MEDS ORDERED: ATROPINE SULFATE 0.1 MG/ML 10ML SYR IV PRN (09:51)
[2025-03-05] MEDS ORDERED: PROMETHAZINE HCL 6.25 MG in SODIUM CHLORIDE 0.9% 50 ML IV PRN (09:51)
--- NOTE | 2025-03-05 10:42 | Operative Report ---
PG Post Operative Report Pre & Post Diagnosis Operation Date: 03/05/25 07:00 Osteomyelitis distal phalanx left second toe I identified the patient and participated in the time-out.: Yes Procedure Operation Date: 03/05/25 07:00 Amputation left second toe Surgeon Heath Alvares DPM Public Health Training Assistant None Estimated Blood Loss 5 Findings Consistent with Post-Op Diagnosis Specimens 1. Bone for culture left second toe 2. Proximal margin pathology left second toe 3. Left second toe for gross pathology Complications None Indications Patient has claw toe deformity left second toe with a distal ulceration and exposed bone to the distal phalanx. Presented to the emergency department at [facility] on 03/02/2025 with increased redness swelling to the left second toe. He is initiated on IV antibiotics and there is a significant reduction in erythema and edema to the left second toe over the past 48 hours. Plain film radiographs negative for osteomyelitis however there is frankly exposed bone of the distal phalanx with surrounding necrotic tissue and soft tissue infection. Discussed conservative versus surgical treatment for osteomyelitis of the toe at length and patient has decided to move forward with amputation of the digit. ABIs performed 03/02/2025 left lower extremity ABIs 1.18. Description of Procedure Patient is brought in the operating room placed on the operating table in supine position. Timeout is held confirming correct patient, side, site, procedure with all necessary parties confirming. Following IV sedation local anesthesia is obtained about patient's left second ray in a modified Marie block fashion utilizing a total of 10 cc of one-to-one mixture 2% lidocaine plain and 0.5% Marcaine plain in a modified Marie block fashion. A well-padded nonsterile ankle tourniquet was placed about the patient's left ankle utilizing adequate cast padding protect soft tissues. The lower extremity was scrubbed prepped and draped to the level of the ankle tourniquet. Attention was directed to the left second digit which is noted to be erythematous with ulceration to the distal aspect of the toe. Tourniquet is inflated to 250 mmHg without exsanguination. A teardrop shaped incision is planned with a Skin Skribe at the base of the toe attempting to maintain adequate soft tissue for primary closure. 15 blade is utilized to create an incision which is carried deep to the level of bone. Periosteal and surrounding soft tissues are freed from the base of the proximal phalanx with a Redding elevator. Sagittal saw was obtained from the back table and utilized to resect the second toe at the proximal one third of the proximal phalanx. Toe was passed to the back table and a sagittal saw was utilized to resect a proximal margin from the proximal phalanx placed in a blue top vessel to be sent to pathology. A rongeur was utilized to collect bone from the exposed distal phalanx for culture and sensitivity. The remainder of the digit is sent for gross pathologic analysis. Tourniquet was released at a total tourniquet time o f 3 minutes and a prompt hyperemic response is noted to all remaining digits. Surgical wound is flushed with copious amounts of normal sterile saline. Tendinous structures within the surgical wound are pulled distally cut and allowed to retract into proximal soft tissues. Surgical wound is evaluated and noted to be free of any necrotic tissue. Wound is again flushed copious amounts of normal sterile saline. Deep soft tissue structures were reapproximated with a 3-0 Vicryl in simple interrupted fashion. Wound edges were reapproximated and closed with a 3-0 nylon in simple interrupted fashion. Foot is cleansed with normal sterile saline dried and dressed with Adaptic nonadherent gauze 4 x 4 fluff gauze ABD pad to the dorsum of the foot to protect soft tissue structures clean and lightly applied Coban to hold dressings in place. Patient tolerated procedure and anesthesia well. He was transferred to recovery room with vital signs stable and vascular status intact to the remaining digits of the operative foot. Following a brief period about postoperative monitoring recovery room patient will be transferred back to his bed on the medical floor for continued IV antibiotics and medical management. Amputation of the left second digit with a considered surgical cure for osteomyelitis of the distal phalanx. Bone of the proximal phalanx is healthy and white with healthy appearing surrounding soft tissues for closure. Adequate perfusion at the amputation site to assume reasonable healing potential. Following postop day 1 dressing change in the hospital patient be cleared for discharge from podiatry standpoint on p.o. antibiotics for continued management of resolving soft tissue infection. Plan: Weight bearing status: foot flat weightbearing in postop shoe left lower extremity Wound care: Will change surgical dressing postop day 1. VTE Prophylaxis: okay from podiatry standpoint Antibiotics: broad-spectrum per medicine Pain Control: Multimodal Discharge Plan: pending clinical course Follow-up: Patient will follow-up with myself in diabetic foot clinic in 2 weeks for continued wound care of the right foot and suture removal left foot . I attest to the content of the Intraoperative Record and any orders documented therein. Any exceptions are noted below. I attest to the content of the Intraoperative Record and any orders documented therein. Any exceptions are noted below.
[2025-03-05] MEDS ORDERED: PHENYLEPHRINE 100MCG/ML 5ML SYR ONE (11:03)
[2025-03-05] MEDS: BUPIVACAINE 0.5 % 5 MG/1 ML MPF 30ML VIAL ONE (11:07)
--- NOTE | 2025-03-05 15:19 | Anesthesiology Progress Note ---
Date of Service March 05, 2025 Anesthesia Post Procedure Vital Signs Vital Signs: Temp Pulse Pulse Resp BP BP Pulse Ox 03/05/25 14:05 36.5 C 72 18 119/66 95 03/05/25 13:00 36.4 C L 67 18 137/74 93 03/05/25 12:34 36.6 C 72 16 127/68 97 03/05/25 12:00 36.3 C L 60 18 116/68 94 03/05/25 11:40 36.5 C 67 16 127/70 96 03/05/25 11:31 67 22 120/71 100 03/05/25 11:20 36.0 C L 67 12 117/67 100 03/05/25 09:26 36.9 C 71 20 164/69 H 96 03/05/25 07:35 36.6 C 72 18 119/72 95 03/04/25 23:00 36.9 C 18 96 03/04/25 22:13 70 147/69 H 03/04/25 15:47 36.5 C 72 19 152/77 H 95 O2 Del Method O2 Flow Rate 03/05/25 14:05 Room Air 03/05/25 13:00 Room Air 03/05/25 12:34 Room Air 03/05/25 12:00 Room Air 03/05/25 11:40 Room Air 03/05/25 11:31 Room Air 03/05/25 11:20 Oxymask 10 03/05/25 09:26 Room Air 03/05/25 07:35 Room Air 03/04/25 23:00 Room Air 03/04/25 22:13 03/04/25 15:47 Room Air Transfer of Care Handoff Completed per policy Notes Mental Status: alert / awake / arousable and participated in evaluation Nausea / Vomiting: adequately controlled Pain: adequately controlled Airway Patency, RR, SpO2: stable & adequate BP & HR: stable & adequate Hydration State: stable & adequate Anesthetic Complications: no major complications apparent and Pt Satisfied with anesthetic care
[2025-03-06 06:03] LABS: Hematocrit (blood only) 38.5 % (42.0-52.0); Hemoglobin 12.6 g/dl (14.0-18.0); Mean Corpuscular Hemoglobin 27.4 pg (25.0-34.0); Mean Corpuscular Volume 83.7 fL (80.0-100.0); Platelet Count 247 K/uL (130-400); RDW Standard Deviation 38.5 fL (36.4-46.3); Red Blood Count 4.60 M/uL (4.70-6.10); White Blood Count 8.45 K/ul (4.8-10.8)
[2025-03-06 06:21] LABS: Anion Gap 9.0 (3-11); Blood Urea Nitrogen 14.0 mg/dl (6-23); Calcium 9.2 mg/dl (8.6-10.3); Carbon Dioxide 25.0 mmol/L (21-32); Chloride 104.0 mmol/L (98-107); Creatinine Clr Calc Pharmacy 97.9 ml/min; Glucose 83.0 mg/dl (70-99(Fasting)); Potassium 4.1 mmol/L (3.5-5.1); Sodium 138.0 mmol/L (136-145)
[2025-03-06 08:23] VITALS: RESP 17; TEMP 97.5
--- NOTE | 2025-03-06 10:04 | Discharge Summary ---
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 He was admitted for cellulitis and L second toe OM. Started on CTX and flagyl with marked improvement in cellulitis. Podiatry consulted, s/p toe amputation yesterday. Podiatry recommending PO abx upon discharge since affected toe was removed. Since he clinically improved on CTX, will send on cefdinir x 5 days. He will f/u with podiatry in two weeks. He declined home care. He feels well this AM and wishes to go home. He was instructed to resume his home ASA today when he gets home. vitals and labs are stable for dc home today #Left Second Toe Osteomyelitis -Podiatry concerned for OM -Likely secondary to his significant neuropathy -Reviewed LORRAINE, low suspicion for PAD -S/p bedside debridement on 03/02 -No history of MRSA or PSA -Bedside wound culture growing normal skin zonia #Pre op evaluation -METS >3 -RCRI: 1 (prior stroke) -Further testing unlikely to reduce surgical risk, proceed with surgery if indicated #NIDDM -Not on insulin at home -SSI BGM ACHS #History of CVA -With residual L leg weakness, difficulty speaking -On ASA, statin at home -Holding ASA until after surgery, resume LIDIA #COPD -Stable. not in exacerbation -No home O2 #HTN -Stable, continue home norvasc and lisinopril #Depression -Continue home psych regimen I spent a total of 48 minutes coordinating, documenting, and providing care for this patient excluding time spent in the performance of separately billed services. This included personally reviewing all current laboratories and imaging studies, medical reconciliation, outpatient chart review and discussion with specialists Notes For Next Care Provider Medication Changes From Visit cefdinir x 5 days Admission HPI Per Admitting Provider Patient 69-year-old gentleman with known diabetes and peripheral neuropathy presented to his PCPs office earlier today for follow-up on recent right thumb surgery. While there noted that his left second toe was very red and swollen with venous streaking. Sent to the emergency room for evaluation. In the emergency room WBCs were normal. Other laboratory studies were unrevealing. X- ray of the toe did not show any signs of osteomyelitis but on clinical exam appear to be cellulitic. Patient was referred to our service for inpatient management. Time my evaluation patient is comfortable. He says he has no feeling in his feet. He thinks that the toe looked normal on Wednesday but often does not take off his shoes and socks and does not exactly sure when the toe started to get red. He denies any fever or chills, no cough or cold symptoms, no chest pain, no shortness of breath, no nausea vomiting, no new problems with his bowels or bladder. No new lung in his hands arms legs or feet. He states has been eating well. He recently had right thumb surgery which she is recuperating well from and getting strength built back up. He does follow regularly with outside pen ruler operator and has an upcoming appointment. His prlaph-jf-omn at the bedside does give additional history that he has had issues with ulcerations of his toes in the past and has been followed by outpatient providers/podiatry where he lived previously in [facility]. Discharge Exam Vitals and labs reviewed General: Well appearing, NAD HEENT: EOMI, PERRLA Neck: Supple Cardiac: RRR no rubs gallops or murmurs Lungs: CTA no rhonchi wheezing or rales Abd: S NT ND BS positive : Deffered MSK: Full ROM. No obvious deformities L second toe amputation. bandaged. Ext: No Edema cyanosis Skin: Warm, Dry almost complete resolution of LLE erythema, warmth Neuro: AOx3 No focal deficits. Psych: Normal Mood Updated Medication List Medication Instructions Recorded Confirmed Type buspirone 15 mg tablet 30 mg PO BID 05/19/22 03/02/25 History cyclobenzaprine 10 mg tablet 10 mg PO BID 05/19/22 03/02/25 History metformin 500 mg tablet 500 mg PO BIDM 05/19/22 03/02/25 History omeprazole 40 mg capsule,delayed 40 mg PO BID 05/19/22 03/02/25 History release phenytoin sodium extended 100 mg 300 mg PO AMHS 05/19/22 03/02/25 History capsule aspirin 81 mg tablet,delayed 81 mg PO QAM #30 tabs 05/22/22 03/02/25 Rx release albuterol sulfate 90 mcg/actuation 2 puff inhalation Q4H PRN 01/10/25 03/02/25 History aerosol inhaler SOB/wheezing amlodipine 5 mg tablet 5 mg PO DAILY 01/10/25 03/02/25 History aripiprazole 10 mg tablet 10 mg PO DAILY 01/10/25 03/02/25 History desvenlafaxine succinate 100 mg 100 mg PO DAILY 01/10/25 03/02/25 History tablet,extended release 24 hr lisinopril 40 mg tablet 40 mg PO DAILY 01/10/25 03/02/25 History ondansetron 4 mg disintegrating 4 mg PO Q8H PRN n/v 01/10/25 03/02/25 History tablet rosuvastatin 40 mg tablet 40 mg PO DAILY 01/10/25 03/02/25 History semaglutide 2 mg/dose (8 mg/3 mL) 2 mg subcut WK 01/10/25 03/02/25 History subcutaneous pen injector (Ozempic) acetaminophen 500 mg tablet 1,000 mg PO BID 03/02/25 03/02/25 History (Tylenol Extra Strength) ammonium lactate 12 % topical cream 1 applic topical DIRECTED PRN 03/02/25 03/02/25 History NEEDED ascorbic acid (vitamin C) 500 mg 500 mg PO DAILY 03/02/25 03/02/25 History tablet (Vitamin C) coenzyme Q10 100 mg capsule 100 mg PO DAILY 03/02/25 03/02/25 History (CoQ-10) meclizine 12.5 mg tablet 12.5 mg PO TID PRN Dizziness 03/02/25 03/02/25 History mupirocin 2 % topical ointment 1 applic topical BID PRN APPLY TO 03/02/25 03/02/25 History NOSTRILS cefdinir 300 mg capsule 300 mg PO BID 5 days #10 caps 03/06/25 Rx Hospital Stay Data Consultations 03/02/25 15:18 ED Decision to Admit Stat 03/02/25 15:41 Consult Podiatry Routine Procedures Performed Operation Date: 03/05/25 07:00 Actual Procedures p Left Second Toe Amputation(Left) - Heath Alvares DPM Diagnostic Imagining Performed 03/02/25 15:41 US ankle brachial index [US ankle/brachial index ltd] Routine Pending Results Patient Have Any Pending Studies at Discharge: No Discharge Instructions Given to Patient (Per Discharging Provider) Finish taking your antibiotics as prescribed. Follow up with your pen ruler operator in 2 weeks. Total Time Total Time Spent Total Time Spent (In Minutes): 48
[2025-03-06 11:04] VITALS: BP 139/76; PULSE 74; O2SAT 99
--- NOTE | 2025-03-06 12:23 | Podiatry Progress Note ---
Date of Service March 06, 2025 Assessment & Plan (1) Cellulitis of second toe of left foot: (2) Status post amputation of toe of left foot: Plan Postop day 1 status post left second toe amputation. Wound edges well- approximated all sutures intact. Mild persistent erythema and edema at the amputation site. Treatment for osteomyelitis with amputation of the second digit considered surgical cure for osteomyelitis of the distal phalanx. Patient okay for discharge from podiatry standpoint on p.o. antibiotics. I will continue to monitor his cultures as they result and adjust antibiotics as an outpatient as needed. -Okay to weight-bear as tolerated in postop shoe. Should continue to elevate the left lower extremity while at rest. -Dressing placed this morning can be left clean dry and intact until follow-up in the podiatry office. Patient should follow-up within 2 weeks of discharge for reevaluation of the foot and suture removal. Admission and Anticipated Discharge Date Admission Date: March 02, 2025 Subjective Patient seen this morning resting comfortably in bedside chair. Denies pain in the left foot. Surgical dressing remains in place. Postop shoe in place. Reports nausea and vomiting following procedure yesterday which is resolved this morning. Review of Systems Review of Systems: Denies nausea, vomiting, fever, chills, shortness of breath today. Patient does report nausea and vomiting following surgery throughout the day yesterday which is now resolved. Reports overall feeling well with no pain to the left foot today. Physical Exam Physical Exam: Const: Appears well developed and well nourished. No signs of acute distress present. CV: Extremities: No cyanosis or edema. Capillary refill time is less than 2 seconds all digits of the bilateral foot. Posterior tibial and dorsalis pedis pulses are lightly palpable bilateral. Neuro: Loss of protective sensation bilateral foot Psych: Mood/Affect: Mood is normal. Affect is normal. Cognition: Orientation is intact to person, place and time. Focused lower extremity musculoskeletal exam: Leg: No pain with compression of the calf muscle. Ankles: Normal to inspection and palpation. No swelling bilaterally. No tenderness bilaterally. Motor strength is intact. Range of motion pain-free and unlimited. Feet: Postop day 1 status post amputation left second toe. Wound edges well-ap proximated with all sutures intact. Mild erythema and edema at the amputation stump. No active drainage. No lymphangitis or streaking. Results & Data Results & Data Vital Signs (Past 12 Hours) Vital Signs Temp Pulse Pulse Resp BP Pulse Ox O2 Del Method 03/06/25 11:02 36.4 C L 74 17 139/76 99 Room Air 03/06/25 08:51 72 138/68 95 Room Air 03/06/25 08:22 36.4 C L 67 17 95/63 L 94 Room Air 03/06/25 03:15 36.7 C 71 18 133/72 94 Room Air Coding Level of Care Code 57608 SUB INP/OBS CARE 06/10MIN Diagnoses Cellulitis of second toe of left foot L03.032 Status post amputation of toe of left foot Z89.422
== END 2025-03-06 13:55 | disposition home or self-care (01) | DRG 464 ==
LOC: ED 13:21 → SUATTDRO 15:41 → 3E 15:41